=== PATIENT | female | born 1945 | race Caucasian/White ===

== ENCOUNTER 2017-09-23 10:01 | Emergency (ER) | payer OTHER, BC ==
[2017-09-23 10:08] VITALS: TEMP 98.5; BMI 26.4
--- NOTE | 2017-09-23 10:22 | PDOC ---
History of Present Illness - General Chief Complaint: Headache Stated Complaint: HEADACHE SENT BY PMD Time Seen by Provider: 09/23/17 10:16 Past History - Past Medical History Allergies/Adverse Reactions: Allergies Allergy/AdvReac Type Severity Reaction Status Date / Time cefuroxime axetil Allergy UNKNOWN Verified 09/23/17 10:08 [From Ceftin] ciprofloxacin HCl Allergy UNKNOWN Verified 09/23/17 10:08 [From Cipro] clindamycin HCl Allergy Verified 09/23/17 10:08 [From Cleocin] enoxaparin sodium Allergy Verified 09/23/17 10:08 [From Lovenox] erythromycin base Allergy UNKNOWN Verified 09/23/17 10:08 [Erythromycin Base] iodine [Iodine] Allergy Swelling Verified 09/23/17 10:08 lactose [Lactose] Allergy GAS AND Verified 09/23/17 10:08 PAIN latex Allergy Verified 09/23/17 10:08 Penicillins Allergy Hives Verified 09/23/17 10:08 promethazine HCl Allergy Verified 09/23/17 10:08 [From Phenergan] ranitidine HCl [From Zantac] Allergy Verified 09/23/17 10:08 Shellfish Allergy ITCHING Verified 09/23/17 10:08 TROUBLE SWALLOWING Sulfa (Sulfonamide Allergy UNKNOWN Verified 09/23/17 10:08 Antibiotics) NUTS Allergy UNKNOWN Uncoded 09/23/17 10:08 Home Medications: Ambulatory Orders Acetaminophen [Tylenol .Regular Strength -] 650 mg PO Q6H PRN #0 tablet Diltiazem [Cardizem -] 30 mg PO HS #0 tablet 01/08/14 Warfarin Na [Coumadin -] 5 mg PO ASDIR 10/18/14 Diphenhydramine HCl [Benadryl -] 25 mg PO HS 09/23/17 Anemia: No Asthma: Yes (ALLERGY PROBLEM) Cancer: No Cardiac Disorders: Yes (CAD, A-Fib - on Coumadin) CVA: No COPD: No CHF: No Dementia: No Diabetes: No GI Disorders: Yes (Post/op adhisions, Colostomy/Hemorrhoids, Rectal bleed) Disorders: No HTN: No Hypercholesterolemia: No Liver Disease: No Seizures: No Thyroid Disease: No - Surgical History Abdominal Surgery: Yes (Multiple hernia repair w/Colostomy) Appendectomy: Yes Cardiac Surgery: No Cholecystectomy: No Lung Surgery: No Neurologic Surgery: No (cyst removed on spine x4 last 1961) Orthopedic Surgery: No - Suicide/Smoking/Psychosocial Hx Smoking Status: No Smoking History: Never smoked Have you smoked in the past 12 months: No Number of Cigarettes Smoked Daily: 0 Information on smoking cessation initiated: No Hx Alcohol Use: No Drug/Substance Use Hx: No Substance Use Type: None Hx Substance Use Treatment: No *Physical Exam - Vital Signs Last Vital Signs Temp Pulse Resp BP Pulse Ox 98.5 F 74 18 143/87 100 09/23/17 10:06 09/23/17 10:06 09/23/17 10:06 09/23/17 10:06 09/23/17 10:06 ED Treatment Course - LABORATORY CBC & Chemistry Diagram: 09/23/17 10:59 09/23/17 10:59 *DC/Admit/Observation/Transfer Diagnosis at time of Disposition: Migraine Qualifiers: Migraine type: without aura Status migrainosus presence: without status migrainosus Intractability: not intractable Qualified Code(s): G43.009 - Migraine without aura, not intractable, without status migrainosus; G43.009 - Migraine without aura, not intractable, without status migrainosus; G43.009 - Migraine without aura, not intractable, without status migrainosus - Discharge Dispostion Disposition: HOME Condition at time of disposition: Good Admit: No - Referrals Referrals: Rasta Kebede MD [Primary Care Provider] - Salvador Aguilar DO [Staff Physician] - - Patient Instructions Printed Discharge Instructions: DI for Migraine Additional Instructions: You have a migraine. Your head CT was negative for bleed today. Continue to take the Tylenol every 6-8 hours for the next 48 hours to help prevent the headache from returning. Drink plenty of fluids and get plenty of rest. Follow up with Dr. Kebede within 2-3 days. You should also follow up with a neurologist. You were given the number for one. Your INR was 2.47 today. Resume your home dosing of Coumadin. Return to the ED if you have worsening headache, numbness and tingling, facial droop, slurred speech, or have any changes in your symptoms.
[2017-09-23] MEDS ORDERED: SODIUM CHLORIDE 500 ML IV STA (10:56)
[2017-09-23 11:10] LABS: BASOPHIL 0.8 % (0-2.0); EOSINOPHIL 1.3 % (0-4.5); MCH 28.6 pg (25.7-33.7); MCHC 32.7 g/dl (32.0-36.0); MEAN CELL VOLUME 87.7 fl (80-96); MEAN PLT VOLUME 8.7 fl (7.5-11.1); NEUTROPHILS 65.1 % (42.8-82.8); PLATELET COUNT 142 K/MM3 (134-434); WHITE BLOOD COUNT 4.6 K/mm3 (4.0-10.0)
[2017-09-23 11:25] LABS: INR 2.47 (0.82-1.09); PROTHROMBIN TIME (PATIENT) 27.9 SEC (9.98-11.88)
[2017-09-23 11:32] LABS: MAGNESIUM 2.1 mg/dL (1.8-2.4); PHOSPHOROUS 3.1 mg/dL (2.5-4.9)
[2017-09-23 11:36] LABS: ALBUMIN 3.8 g/dl (3.4-5.0); ALK PHOS 87 U/L (45-117); ANION GAP 10 (8-16); BILIRUBIN,TOTAL 0.3 mg/dL (0.2-1.0); CALCIUM 8.2 mg/dL (8.5-10.1); CO2 25 mmol/L (21-32); CREATININE 0.7 mg/dL (0.55-1.02); GLUCOSE,RANDOM 84 mg/dL (74-106); SGPT/ALT 32 U/L (12-78); TOT PROT 7.3 g/dl (6.4-8.2)
[2017-09-23 11:37] LABS: SGOT/AST 28 U/L (15-37)
[2017-09-23 11:51] LABS: URINE APPEARANCE CLEAR; URINE BILIRUBIN NEGATIVE (NEGATIVE); URINE BLOOD 1+ (NEGATIVE); URINE COLOR STRAW; URINE GLUCOSE (UA) NEGATIVE (NEGATIVE); URINE KETONE NEGATIVE (NEGATIVE); URINE NITRITE NEGATIVE (NEGATIVE); URINE PROTEIN NEGATIVE (NEGATIVE); URINE UROBILINOGEN NEGATIVE mg/dL (0.2-1.0)
[2017-09-23 12:01] LABS: URINE HYALINE CAST 3 /lpf; URINE MUCUS RARE; URINE WBC 1 /hpf (3-5)
[2017-09-23] MEDS ORDERED: METOCLOPRAMIDE HCL INJECTION 10 MG/2 ML VIAL IVPUSH ONE (12:08)
[2017-09-23] MEDS ORDERED: METOCLOPRAMIDE HCL INJECTION 10 MG/2 ML VIAL ONE (12:21)
[2017-09-23] MEDS ORDERED: ACETAMINOPHEN 325 MG TABLET (FP) PO ONE (13:22)
[2017-09-23] MEDS ORDERED: ACETAMINOPHEN 650 MG/20.3 ML ORAL SOLUTION (CUPS) ONE (13:25)
[2017-09-23 14:01] VITALS: BP 114/69; PULSE 76
[2017-09-23 19:51] LABS: URINE LEUK ESTERASE Negative (NEGATIVE)
== END 2017-09-23 14:00 | disposition home or self-care (01) ==
LOC: JER 10:01
PROC: 3E0337Z Introduction of Electrolytic and Water Balance Substance into Peripheral Vein, Percutaneous Approach (ICD-10-PCS; principal; 2017-09-23)
DX: G43.009 Migraine without aura, not intractable, without status migrainosus (principal); I48.91 Unspecified atrial fibrillation; Z79.01 Long term (current) use of anticoagulants
CPT/HCPCS: 36415; 70450-TC; 80053; 81003; 81015; 83735; 84100; 85025; 85610; 96360; 96361; 99282-25

== ENCOUNTER 2018-07-24 13:07 | Inpatient (IN) | payer OTHER, BC ==
--- NOTE | 2018-07-24 13:32 | PDOC ---
History of Present Illness - General Chief Complaint: SIRS, Suspected/Possible Stated Complaint: FEVER Time Seen by Provider: 07/24/18 13:32 - History of Present Illness Initial Comments: 73 year old with PMH of CAD, A. fib (Coumadin), colostomy, migraine, and vertigo presenting with nausea, vomiting, cough, and fevers since Saturday. States that she had chills and fever as high as 102 at home. Hesitated to take PO medication because of severe allergies to all regular medications due to PEG allergy. She also noticed some pain on the lateral aspect of her colostomy site without drainage, swelling, erythema, or other issues. Her younger relative had similar symptoms one week prior. Denies any chest pain, headache, SOB, or other symptoms. 07/24/18 13:47 Past History - Past Medical History Allergies/Adverse Reactions: Allergies Allergy/AdvReac Type Severity Reaction Status Date / Time cefuroxime axetil Allergy UNKNOWN Verified 07/24/18 13:13 [From Ceftin] ciprofloxacin HCl Allergy UNKNOWN Verified 07/24/18 13:13 [From Cipro] clindamycin HCl Allergy Verified 07/24/18 13:13 [From Cleocin] enoxaparin sodium Allergy Verified 07/24/18 13:13 [From Lovenox] erythromycin base Allergy UNKNOWN Verified 07/24/18 13:13 [Erythromycin Base] iodine [Iodine] Allergy Swelling Verified 07/24/18 13:13 lactose [Lactose] Allergy GAS AND Verified 07/24/18 13:13 PAIN latex Allergy Verified 07/24/18 13:13 Penicillins Allergy Hives Verified 07/24/18 13:13 promethazine HCl Allergy Verified 07/24/18 13:13 [From Phenergan] ranitidine HCl [From Zantac] Allergy Verified 07/24/18 13:13 Shellfish Allergy ITCHING Verified 07/24/18 13:13 TROUBLE SWALLOWING Sulfa (Sulfonamide Allergy UNKNOWN Verified 07/24/18 13:13 Antibiotics) NUTS Allergy UNKNOWN Uncoded 07/24/18 13:13 Home Medications: Ambulatory Orders Acetaminophen [Tylenol .Regular Strength -] 650 mg PO Q6H PRN #0 tablet Diltiazem [Cardizem -] 30 mg PO HS #0 tablet 01/08/14 Warfarin Na [Coumadin -] 5 mg PO ASDIR 10/18/14 Diphenhydramine HCl [Benadryl -] 25 mg PO HS 09/23/17 Anemia: No Asthma: Yes (ALLERGY PROBLEM) Cancer: No Cardiac Disorders: Yes (CAD, A-Fib - on Coumadin) CVA: No COPD: No CHF: No DVT: No Dementia: No Diabetes: No GI Disorders: Yes (Post/op adhisions, Colostomy/Hemorrhoids, Rectal bleed) Disorders: No HTN: No Hypercholesterolemia: No Liver Disease: No Seizures: No Thyroid Disease: No Other medical history: LLE DVT - Surgical History Abdominal Surgery: Yes (Multiple hernia repair w/Colostomy) Appendectomy: No Cardiac Surgery: No Cholecystectomy: No Lung Surgery: No Neurologic Surgery: No (cyst removed on spine x4 last 1961) Orthopedic Surgery: No - Suicide/Smoking/Psychosocial Hx Smoking Status: No Smoking History: Never smoked Have you smoked in the past 12 months: No Number of Cigarettes Smoked Daily: 0 Information on smoking cessation initiated: No Hx Alcohol Use: No Drug/Substance Use Hx: No Substance Use Type: None Hx Substance Use Treatment: No Review of Systems - Review of Systems Constitutional: Yes: Chills, Fever, Loss of Appetite. No: Diaphoresis HEENTM: No: Blurred Vision, Tearing Respiratory: Yes: Cough. No: Shortness of Breath, Wheezing, Productive cough Cardiac (ROS): No: Chest Pain, Edema, Irregular Heart Rate ABD/GI: Yes: Nausea, Vomiting. No: Diarrhea, Indigestion : No: Dysuria, Discharge, Frequency Musculoskeletal: No: Back Pain, Gout Integumentary: No: Lesions, Lumps Neurological: No: Numbness, Tremors Psychiatric: No: Anxiety, Depression Hematologic/Lymphatic: No: Anemia, Blood Clots, Easy Bleeding *Physical Exam - Vital Signs Last Vital Signs Temp Pulse Resp BP Pulse Ox 99.4 F 91 H 18 118/86 100 07/24/18 13:14 07/24/18 13:14 07/24/18 13:14 07/24/18 13:14 07/24/18 13:14 - Physical Exam General Appearance: Yes: Nourished, Appropriately Dressed. No: Apparent Distress HEENT: positive: EOMI, NICKI, Normal ENT Inspection, Normal Voice Neck: positive: Trachea midline, Normal Thyroid, Supple. negative: Tender, Rigid Respiratory/Chest: positive: Lungs Clear, Normal Breath Sounds. negative: Chest Tender, Respiratory Distress, Accessory Muscle Use Cardiovascular: positive: Regular Rhythm, Regular Rate Gastrointestinal/Abdominal: positive: Normal Bowel Sounds, Tender (Tender on the lateral aspect of her left colostomy site), Flat, Soft Lymphatic: negative: Adenopathy, Tenderness Musculoskeletal: positive: Normal Inspection. negative: CVA Tenderness Extremity: positive: Normal Capillary Refill, Normal Inspection, Normal Range of Motion. negative: Tender Integumentary: positive: Normal Color, Dry, Warm Neurologic: positive: hardwood sawyer II-XII NML intact, Fully Oriented, Alert, Normal Mood/ Affect, Normal Response, Motor Strength 04/05 ED Treatment Course - LABORATORY CBC & Chemistry Diagram: 07/24/18 14:46 07/24/18 14:46 Medical Decision Making - Medical Decision Making 73 year old female with cough, fevers, chills, and lateral left abdominal pain after a bout of coughing. Her CXR corroborates right middle lobe PNA. However, she states she is very allergic to oral medications and the majority of oral abx. Severely allergic to floroquinolones. She was premedicated with 25 IV Benadryl and ceftriaxone was started. Run for 30 minutes without issue by the end of my shift. Patient signed out to Dr. Garcia and oncoming financial services intern Bryce Askew pending azithromycin. Epi given to Jamilah in case there are any issues. 07/24/18 14:30 *DC/Admit/Observation/Transfer Diagnosis at time of Disposition: CAP (community acquired pneumonia) Qualifiers: Laterality: right Lung location: middle lobe of lung Qualified Code(s): J18.1 - Lobar pneumonia, unspecified organism - Discharge Dispostion Condition at time of disposition: Stable Decision to Admit order: Yes - Referrals Referrals: Rasta Kebede MD [Primary Care Provider] - - Patient Instructions - Post Discharge Activity
--- NOTE | 2018-07-24 14:04 | PDOC ---
Attending Attestation - Resident Resident Name: Brittanie Brown - ED Attending Attestation I have performed the following: I have examined & evaluated the patient, The case was reviewed & discussed with the resident, I agree w/resident's findings & plan, Exceptions are as noted - HPI HPI: 07/24/18 14:00 The patient is a 73 year old female with PMHx of CAD, A-fib, DVT (takes Coumadin ), asthma, rectal bleeds, meniere's disease, SBO, kidney stones, hemorrhoids, s/ p Ileostomy, s/p appendectomy, who presents with 7 days of general malaise. Patient states that since last Saturday she has been experiencing intermittent fevers (101), nausea, chills, body aches, dizziness, and generalized weakness. Yesterday she states that she developed a non-productive cough. She states that she also began experiencing some pain around the site of her ileostomy when she heaves. She also reports that she feels dehydrated and has not been taking in as much fluids. Patient reports that her daughter has been recently diagnosed with viral pneumonia and had similar symptoms (fever, nausea, body aches etc.). PCP: Dr. Kebede Allergies: various allergies to oral meds - please see nursing notes - Physicial Exam PE: 07/24/18 14:53 GENERAL: The patient is awake, alert, and fully oriented, Nontoxic - in no acute distress. HEAD: Normocephalic, atraumatic. EYES: Sunken appearing eyes. Extraocular movements intact, sclera anicteric, conjunctiva clear. ENT: Normal voice, Dry mucous membranes. NECK: Normal range of motion, supple LUNGS: Breath sounds equal, clear to auscultation bilaterally. No wheezes, no rhonchi, no rales. HEART: Regular rate and rhythm, without murmur, rub or gallop. ABDOMEN: Soft, nontender beside very midl tenderness on lateral aspect of ileostomy site, ileostomy site clean, nonerythemadous, no fluctuance/fullness EXTREMITIES: Normal range of motion, no edema. No cyanosis. No erythema, or tenderness. NEUROLOGICAL: No facial assymetry, Normal speech, PSYCH: Normal mood, normal affect. SKIN: Warm, Dry, normal turgor, - Medical Decision Making 07/24/18 14:21 suspect viral syndrome no abd tendneress to suggest acute intrabdominal infection will obtain blood work, ua, cxr will treat symptomatically with tylenol, fluids, zofran will reassess 07/24/18 16:21 xray suspicious for side dpna due to the pts extensive allergic profile, will require admission for iv abx will admit for further management
[2018-07-24] MEDS ORDERED: ACETAMINOPHEN 1000 MG/100 ML VIAL (NON FORMULARY) IVPB ONE (14:24)
[2018-07-24] MEDS ORDERED: SODIUM CHLORIDE 1,000 ML IV STA (14:29)
[2018-07-24] MEDS ORDERED: ACETAMINOPHEN INJECTION 100 ML IVPB ONE (14:59)
[2018-07-24 15:07] LABS: URINE APPEARANCE SLCLOUDY; URINE BILIRUBIN NEGATIVE (<2.0 mg/dL); URINE COLOR DKYELLOW; URINE GLUCOSE (UA) NEGATIVE (NEGATIVE); URINE KETONE NEGATIVE (NEGATIVE); URINE NITRITE POSITIVE (NEGATIVE); URINE UROBILINOGEN NEGATIVE mg/dL (0.2-1.0)
[2018-07-24 15:14] LABS: URINE LEUK ESTERASE 1+ (NEGATIVE); URINE PROTEIN 1+ (NEGATIVE)
[2018-07-24 15:16] LABS: BASO % 0.4 % (0-2.0); HEMATOCRIT 39.4 % (32.4-45.2); HEMOGLOBIN 13.2 GM/dL (10.7-15.3); LYMPH % 8.8 % (8-40); MCH 29.3 pg (25.7-33.7); MCHC 33.4 g/dl (32.0-36.0); MEAN CELL VOLUME 87.6 fl (80-96); MONO % 7.6 % (3.8-10.2); NEUT % 83.2 % (42.8-82.8); PLATELET COUNT 202 K/MM3 (134-434); RDW 13.2 % (11.6-15.6); WHITE BLOOD COUNT 4.9 K/mm3 (4.0-10.0)
[2018-07-24 15:20] LABS: URINE BACTERIA MANY /hpf (NONE SEEN)
[2018-07-24 15:34] LABS: ALBUMIN 3.6 g/dl (3.4-5.0); AMYLASE 95 U/L (25-115); ANION GAP 12 MMOL/L (8-16); BLOOD UREA NITROGEN 13 mg/dL (7-18); CALCIUM 9.2 mg/dL (8.5-10.1); CHLORIDE 97 mmol/L (98-107); CO2 28 mmol/L (21-32); GLUCOSE,RANDOM 94 mg/dL (74-106); POTASSIUM 4.2 mmol/L (3.5-5.1); SODIUM 137 mmol/L (136-145)
[2018-07-24 15:37] LABS: INR 2.26 (0.83-1.09); PROTHROMBIN TIME (PATIENT) 25.5 SEC (9.7-13.0)
[2018-07-24 15:40] LABS: ALK PHOS 248 U/L (45-117); BILIRUBIN,TOTAL 0.5 mg/dL (0.2-1.0); CREATININE 0.9 mg/dL (0.55-1.02); SGOT/AST 73 U/L (15-37); SGPT/ALT 68 U/L (12-78); TOT PROT 8.1 g/dl (6.4-8.2)
[2018-07-24 15:42] LABS: LIPASE 442 U/L (73-393)
[2018-07-24] MEDS ORDERED: CEFTRIAXONE 1,000 MG in DEXTROSE 5%-WATER - 50 ML IVPB ONE (17:38)
[2018-07-24] MEDS ORDERED: AZITHROMYCIN IVPB 500 MG in DEXTROSE 5%-WATER - 250 ML IVPB ONE (17:38)
[2018-07-24] MEDS ORDERED: CEFTRIAXONE 1 GM/50 ML BAG ONE (18:40)
[2018-07-24] MEDS ORDERED: AZITHROMYCIN IVPB 250 ML IVPB ONE ×2 (18:40→18:41)
[2018-07-24] MEDS ORDERED: EPINEPHrine/PF 1 MG/1 ML (1:1,000) AMPULE ONE (18:58)
--- NOTE | 2018-07-24 20:01 | HP ---
Admitting History and Physical - Primary Care Physician PCP: Rasta Kebede - Admission Chief Complaint: Fever, Nausea, Vomiting History of Present Illness: 73 y/o woman with a past medical history of CAD, Afib (on Coumadin), Migraine, Vertigo, s/p colostomy. Who preens to the ED with fever, nausea and vomiting. Patient states that since last Saturday she has been experiencing intermittent fevers (101), nausea, chills, body aches, dizziness, and generalized weakness. Yesterday she states that she developed a non-productive cough. She states that she also began experiencing some pain around the site of her ileostomy when she heaves. She also reports that she feels dehydrated and has not been taking in as much fluids. Patient reports that her daughter has been recently diagnosed with viral pneumonia and had similar symptoms (fever, nausea, body aches etc.). 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 No: CAD Renal/: Yes: Renal Calculi ...LMP: 01/02/88 - Past Surgical History Past Surgical History: Yes: Colostomy - Smoking History Smoking history: Never smoked Have you smoked in the past 12 months: No Aproximately how many cigarettes per day: 0 - Alcohol/Substance Use Hx Alcohol Use: No History of Substance Use: reports: None - Social History Usual Living Arrangement: Yes: With Child ADL: Independent History of Recent Travel: No Home Medications - Allergies Allergies/Adverse Reactions: Allergies Allergy/AdvReac Type Severity Reaction Status Date / Time cefuroxime axetil Allergy UNKNOWN Verified 07/24/18 13:13 [From Ceftin] chocolate flavor Allergy Verified 07/25/18 07:26 ciprofloxacin HCl Allergy UNKNOWN Verified 07/24/18 13:13 [From Cipro] clindamycin HCl Allergy Verified 07/24/18 13:13 [From Cleocin] egg Allergy Verified 07/25/18 07:25 enoxaparin sodium Allergy Verified 07/24/18 13:13 [From Lovenox] erythromycin base Allergy UNKNOWN Verified 07/24/18 13:13 [Erythromycin Base] iodine [Iodine] Allergy Swelling Verified 07/24/18 13:13 lactose [Lactose] Allergy GAS AND Verified 07/24/18 13:13 PAIN latex Allergy Verified 07/24/18 13:13 orange Allergy Verified 07/25/18 07:25 Penicillins Allergy Hives Verified 07/24/18 13:13 promethazine HCl Allergy Verified 07/24/18 13:13 [From Phenergan] ranitidine HCl [From Zantac] Allergy Verified 07/24/18 13:13 Shellfish Allergy ITCHING Verified 07/24/18 13:13 TROUBLE SWALLOWING Sulfa (Sulfonamide Allergy UNKNOWN Verified 07/24/18 13:13 Antibiotics) NUTS Allergy UNKNOWN Uncoded 07/24/18 13:13 - Home Medications Home Medications: Ambulatory Orders Acetaminophen [Tylenol .Regular Strength -] 650 mg PO Q6H PRN #0 tablet Diltiazem [Cardizem -] 30 mg PO HS #0 tablet 01/08/14 Warfarin Na [Coumadin -] 5 mg PO ASDIR 10/18/14 Diphenhydramine HCl [Benadryl -] 25 mg PO HS 09/23/17 Review of Systems - Review of Systems Constitutional: reports: Chills, Fever Eyes: reports: No Symptoms HENT: reports: No Symptoms Neck: reports: No Symptoms Cardiovascular: reports: No Symptoms Respiratory: reports: Cough Gastrointestinal: reports: Nausea, Vomiting Genitourinary: reports: No Symptoms Breasts: reports: No Symptoms Reported Musculoskeletal: reports: No Symptoms Integumentary: reports: No Symptoms Neurological: reports: Dizziness Endocrine: reports: No Symptoms Hematology/Lymphatic: reports: No Symptoms Psychiatric: reports: No Symptoms Physical Examination Vital Signs: Vital Signs Temperature 98.7 F 07/24/18 19:05 Pulse Rate 78 07/24/18 19:05 Respiratory Rate 16 07/24/18 19:05 Blood Pressure 128/78 07/24/18 19:05 O2 Sat by Pulse Oximetry (%) 98 07/24/18 19:05 Constitutional: Yes: No Distress, Calm, Thin Eyes: Yes: WNL, Conjunctiva Clear, EOM Intact, PERRL HENT: Yes: WNL, Atraumatic, Normocephalic Neck: Yes: WNL, Supple, Trachea Midline Cardiovascular: Yes: Pulse Irregular, Murmur, S1, S2 Respiratory: Yes: Diminished, Rhonchi, SOB Gastrointestinal: Yes: Normal Bowel Sounds, Soft, Other (ileostomy) Breast(s): Yes: WNL Musculoskeletal: Yes: WNL Extremities: Yes: WNL Edema: No Peripheral Pulses WNL: Yes Neurological: Yes: WNL, Alert, Oriented, Cran Nerves II-XII Intact ...Motor Strength: WNL Psychiatric: Yes: WNL, Alert, Oriented Labs: CBC, BMP 07/24/18 14:46 07/24/18 14:46 Laboratory Results - last 24 hr 07/24/18 07/24/18 07/24/18 14:26 14:46 14:46 WBC 4.9 RBC 4.50 Hgb 13.2 Hct 39.4 MCV 87.6 MCH 29.3 MCHC 33.4 RDW 13.2 Plt Count 202 D MPV 9.0 Absolute Neuts (auto) 4.1 Neutrophils % 83.2 H D Lymphocytes % 8.8 D Monocytes % 7.6 Eosinophils % 0.0 D Basophils % 0.4 Nucleated RBC % 0 PT with INR INR Sodium 137 Potassium 4.2 Chloride 97 L Carbon Dioxide 28 Anion Gap 12 BUN 13 Creatinine 0.9 Creat Clearance w eGFR > 60 Random Glucose 94 Lactic Acid Calcium 9.2 Total Bilirubin 0.5 AST 73 H ALT 68 Alkaline Phosphatase 248 H Total Protein 8.1 Albumin 3.6 Total Amylase 95 Lipase 442 H Urine Color Dkyellow Urine Appearance Slcloudy Urine pH 6.0 Ur Specific [place] 1.017 Urine Protein 1+ H Urine Glucose (UA) Negative Urine Ketones Negative Urine Blood 2+ H Urine Nitrite Positive Urine Bilirubin Negative Urine Urobilinogen Negative Ur Leukocyte Esterase 1+ H Urine WBC (Auto) None Urine RBC (Auto) None Urine Bacteria Many 07/24/18 07/24/18 14:46 15:14 WBC RBC Hgb Hct MCV MCH MCHC RDW Plt Count MPV Absolute Neuts (auto) Neutrophils % Lymphocytes % Monocytes % Eosinophils % Basophils % Nucleated RBC % PT with INR 25.50 H INR 2.26 H Sodium Potassium Chloride Carbon Dioxide Anion Gap BUN Creatinine Creat Clearance w eGFR Random Glucose Lactic Acid 1.2 Calcium Total Bilirubin AST ALT Alkaline Phosphatase Total Protein Albumin Total Amylase Lipase Urine Color Urine Appearance Urine pH Ur Specific [place] Urine Protein Urine Glucose (UA) Urine Ketones Urine Blood Urine Nitrite Urine Bilirubin Urine Urobilinogen Ur Leukocyte Esterase Urine WBC (Auto) Urine RBC (Auto) Urine Bacteria Imaging - Results Chest X-ray: Report Reviewed (RML Infiltrate), Image Reviewed EKG: Image Reviewed Problem List - Problems (1) CAP (community acquired pneumonia) Code(s): J18.9 - PNEUMONIA, UNSPECIFIED ORGANISM Qualifiers: Laterality: right Lung location: middle lobe of lung Qualified Code(s): J18.1 - Lobar pneumonia, unspecified organism (2) UTI (urinary tract infection) Code(s): N39.0 - URINARY TRACT INFECTION, SITE NOT SPECIFIED (3) Nausea and vomiting Code(s): R11.2 - NAUSEA WITH VOMITING, UNSPECIFIED (4) A-fib Code(s): I48.91 - UNSPECIFIED ATRIAL FIBRILLATION Assessment/Plan 73 y/o woman placed in Observation for Pneumonia, UTI for further evaluation of their emergent condition. Plan 1. ID: Pneumonia will treat for CAP patient has multiple drug allergies given levofloxacin, Ceftriaxone, Azithromycin premedicated with solumederol, benadryl in light of complex allergies will order Linezolid IV in am, then defer to ID appreciate ID consult blood cultures pending, urnie culture pending will order sputum and urine legionella repeat CBC, BMP in am monitor vitals O2 Tylenol prn 2. UTI UA +Nitrates, +1 leukocyte esterase, +1 protein urine culture pending multiple drug allergies treated in ED with Levofloxacin will defer to ID 3. Afib stable continue Coumadin maintain INR between 2-3, will hold Coumadin if INR > 3 [id number] 3 EKG- NSR with no ST or TWI , no change compared to prior study FEN IVF, till PO tolerated Replete lytes prn NPO DVT ppx OOB SCDs Continue Coumadin Code Status: Dispo: Observation Visit type - Emergency Visit Emergency Visit: Yes ED Registration Date: 07/24/18 Care time: The patient presented to the Emergency Department on the above date and was hospitalized for further evaluation of their emergent condition. - New Patient This patient is new to me today: Yes Date on this admission: 07/24/18 - Critical Care Critical Care patient: No Hospitalist Screening - Colonoscopy Questionnaire Colonoscopy Questionnaire: Colonoscopy Questionnaire - Patient: 50 - 75 years old and never had a screening colonoscopy: No History of colon or rectal polyps, or CA: No History of IBD, Crohn's disease or UC: Yes History of abdominal radiation therapy as a child: No - Relative: 1 with colon or rectal CA, or polyps at age 60 or younger: No Colon or rectal CA diagnosed at age 45 or younger: No Multiple relatives with colon or rectal CA: No - Outcome: Screening Result: Positive Screen
[2018-07-25] MEDS ORDERED: dilTIAZem HCL 30 MG TABLET (FP) PO ONE (01:03)
[2018-07-25] MEDS ORDERED: diphenhydrAMINE HCL 25 MG CAPSULE (FP) PO ONE (01:03)
[2018-07-25] MEDS: DEXTROSE 5%-0.45% SALINE 1,000 ML IV SCH (01:31)
[2018-07-25 07:21] LABS: BASO % 0.7 % (0-2.0); EOS % 0.5 % (0-4.5); HEMATOCRIT 33.1 % (32.4-45.2); HEMOGLOBIN 11.1 GM/dL (10.7-15.3); LYMPH % 13.8 % (8-40); MCH 29.2 pg (25.7-33.7); MCHC 33.5 g/dl (32.0-36.0); MEAN PLT VOLUME 8.9 fl (7.5-11.1); MONO % 11.7 % (3.8-10.2); NEUT % 73.3 % (42.8-82.8); PLATELET COUNT 156 K/MM3 (134-434); RBC 3.81 M/mm3 (3.60-5.2); RDW 13.6 % (11.6-15.6); WHITE BLOOD COUNT 4.1 K/mm3 (4.0-10.0)
[2018-07-25 07:42] LABS: ANION GAP 7 MMOL/L (8-16); BLOOD UREA NITROGEN 10 mg/dL (7-18); CALCIUM 8.1 mg/dL (8.5-10.1); CHLORIDE 103 mmol/L (98-107); CO2 28 mmol/L (21-32); CREATININE 0.9 mg/dL (0.55-1.02); GLUCOSE,RANDOM 95 mg/dL (74-106); POTASSIUM 3.9 mmol/L (3.5-5.1); SODIUM 138 mmol/L (136-145)
--- NOTE | 2018-07-25 09:37 | PN ---
Progress Note (short form) - Note Progress Note: Dr. Carpio to document today. Pulmonary infiltrate but WBC 4,000. Nausea all week. Also elevated alk phosphatase, AST and LIpase with RUQ pain on exam. Patient well known to Dr. Mccarthy; To consult him. No hx of Cholecystectomy.
--- NOTE | 2018-07-25 12:02 | EKG ---
Test Reason : Blood Pressure : / mmHG Vent. Rate : 080 BPM Atrial Rate : 080 BPM P-R Int : 150 ms QRS Dur : 086 ms QT Int : 360 ms P-R-T Axes : 069 064 059 degrees QTc Int : 415 ms NORMAL SINUS RHYTHM NORMAL ECG WHEN COMPARED WITH ECG OF 18-OCT-2014 20:47, NO SIGNIFICANT CHANGE WAS FOUND Confirmed by ROCEHLLE SEARS MD ([id number]) on 07/25/2018 12:02:10 PM Referred By: Confirmed By:ROCHELLE SEARS MD
--- NOTE | 2018-07-25 14:37 | CON.ID ---
Consult Consult Specialty:: infectious diseases Reason for Consultation:: fever,weakness - History of Present Illness Chief Complaint: fever weakness History of Present Illness: 73 y/o woman with a past medical history of CAD, Afib (on Coumadin), Migraine, Vertigo, s/p colostomy admitted with fever, nausea and vomiting. Patient states that since last Saturday she has been experiencing intermittent fevers (101), nausea, chills, body aches, dizziness, and generalized weakness. Yesterday she states that she developed a non-productive cough. She states that she also began experiencing some pain around the site of her ileostomy when she heaves. She also reports that she feels dehydrated and has not been taking in as much fluids. 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 No: CAD Renal/: Yes: Renal Calculi ...LMP: 01/02/88 - Past Surgical History Past Surgical History: Yes: Colostomy - Alcohol/Substance Use Hx Alcohol Use: No History of Substance Use: reports: None - Smoking History Smoking history: Never smoked Have you smoked in the past 12 months: No Aproximately how many cigarettes per day: 0 - Social History ADL: Independent History of Recent Travel: No Home Medications - Allergies Allergies/Adverse Reactions: Allergies Allergy/AdvReac Type Severity Reaction Status Date / Time cefuroxime axetil Allergy UNKNOWN Verified 07/24/18 13:13 [From Ceftin] chocolate flavor Allergy Verified 07/25/18 07:26 ciprofloxacin HCl Allergy UNKNOWN Verified 07/24/18 13:13 [From Cipro] clindamycin HCl Allergy Verified 07/24/18 13:13 [From Cleocin] egg Allergy Verified 07/25/18 07:25 enoxaparin sodium Allergy Verified 07/24/18 13:13 [From Lovenox] erythromycin base Allergy UNKNOWN Verified 07/24/18 13:13 [Erythromycin Base] iodine [Iodine] Allergy Swelling Verified 07/24/18 13:13 lactose [Lactose] Allergy GAS AND Verified 07/24/18 13:13 PAIN latex Allergy Verified 07/24/18 13:13 meropenem Allergy Hives Verified 07/25/18 17:45 orange Allergy Verified 07/25/18 07:25 Penicillins Allergy Hives Verified 07/24/18 13:13 promethazine HCl Allergy Verified 07/24/18 13:13 [From Phenergan] ranitidine HCl [From Zantac] Allergy Verified 07/24/18 13:13 Shellfish Allergy ITCHING Verified 07/24/18 13:13 TROUBLE SWALLOWING Sulfa (Sulfonamide Allergy UNKNOWN Verified 07/24/18 13:13 Antibiotics) NUTS Allergy UNKNOWN Uncoded 07/24/18 13:13 - Home Medications Home Medications: Ambulatory Orders Acetaminophen [Tylenol .Regular Strength -] 650 mg PO Q6H PRN #0 tablet Diltiazem [Cardizem -] 30 mg PO HS #0 tablet 01/08/14 Warfarin Na [Coumadin -] 5 mg PO ASDIR 10/18/14 Diphenhydramine HCl [Benadryl -] 25 mg PO HS 09/23/17 Review of Systems - Review of Systems Constitutional: reports: Chills, Fever, Weakness Eyes: reports: No Symptoms HENT: reports: No Symptoms Neck: reports: No Symptoms Cardiovascular: reports: No Symptoms Respiratory: reports: No Symptoms Gastrointestinal: reports: No Symptoms Genitourinary: reports: No Symptoms Musculoskeletal: reports: No Symptoms Integumentary: reports: No Symptoms Neurological: reports: No Symptoms Endocrine: reports: No Symptoms Hematology/Lymphatic: reports: No Symptoms Psychiatric: reports: No Symptoms Physical Exam Vital Signs: Vital Signs Temperature 98.5 F 07/25/18 14:15 Pulse Rate 83 07/25/18 14:15 Respiratory Rate 16 07/25/18 14:15 Blood Pressure 104/53 07/25/18 14:15 O2 Sat by Pulse Oximetry (%) 98 07/25/18 10:00 Constitutional: Yes: Calm, Mild Distress, Thin Eyes: Yes: Conjunctiva Clear HENT: Yes: Atraumatic, Normocephalic Neck: Yes: Supple, Trachea Midline Cardiovascular: Yes: Regular Rate and Rhythm Respiratory: Yes: Regular, CTA Bilaterally Gastrointestinal: Yes: Normal Bowel Sounds, Soft, Other (multiple inscisions clean and dry stoma present working) Musculoskeletal: Yes: WNL Extremities: Yes: WNL Integumentary: Yes: WNL Neurological: Yes: Alert, Oriented Psychiatric: Yes: Alert, Oriented Labs: CBC, BMP 07/25/18 06:15 07/25/18 06:15 Imaging - Results Chest X-ray: Report Reviewed, Image Reviewed Assessment/Plan this patient coming in with multiple medical issues including findings in the lungs and uti patient has received ceftriaxone in the emergency room with it seems benadryl at the moment patient is ok after receiving the abx.also her lipase is high so if there is any intrabd pathology going on though she is completely asymptomatic uptill now her cx are negative so this could be viral the way she has presented Problem List - Problems (1) CAP (community acquired pneumonia) Code(s): J18.9 - PNEUMONIA, UNSPECIFIED ORGANISM Qualifiers: Laterality: right Lung location: middle lobe of lung Qualified Code(s): J18.1 - Lobar pneumonia, unspecified organism (2) UTI (urinary tract infection) Code(s): N39.0 - URINARY TRACT INFECTION, SITE NOT SPECIFIED Qualifiers: Urinary tract infection type: acute cystitis Hematuria presence: with hematuria Qualified Code(s): N30.01 - Acute cystitis with hematuria (3) A-fib Code(s): I48.91 - UNSPECIFIED ATRIAL FIBRILLATION Qualifiers: Atrial fibrillation type: chronic Qualified Code(s): I48.2 - Chronic atrial fibrillation (4) Abnormal liver enzymes Code(s): R74.8 - ABNORMAL LEVELS OF OTHER SERUM ENZYMES (5) History of DVT (deep vein thrombosis) Code(s): Z86.718 - PERSONAL HISTORY OF OTHER VENOUS THROMBOSIS AND EMBOLISM (6) Protein S deficiency Code(s): D68.59 - OTHER PRIMARY THROMBOPHILIA (7) Pancreatitis Code(s): K85.90 - ACUTE PANCREATITIS WITHOUT NECROSIS OR INFECTION, UNSP Qualifiers: Chronicity: acute Pancreatitis type: biliary Acute pancreatitis complication: no infection or necrosis Qualified Code(s): K85.10 - Biliary acute pancreatitis without necrosis or infection plan will start meropenam iv fluids await for identification of the organism gi to see the patient rest as per the team
[2018-07-25] MEDS ORDERED: MEROPENEM 1 GM in DEXTROSE 5%-WATER - 100 ML IVPB SCH (16:00)
--- NOTE | 2018-07-25 16:28 | PN ---
Progress Note, Physician Chief Complaint: Pt sitting in chair in no acute distress. Reports cough. denies any chest pain, sob, n/v/d, abdominal pain - Current Medication List Current Medications: Active Medications Dextrose/Sodium Chloride (D5-1/2ns -) 1,000 mls @ 42 mls/hr IV ASDIR YANCY Last Admin: 07/25/18 01:31 Dose: 42 mls/hr Meropenem 1 gm/ Dextrose 100 mls @ 200 mls/hr IVPB Q8H-IV YANCY - Objective Vital Signs: Vital Signs Temperature 98.5 F 07/25/18 14:15 Pulse Rate 83 07/25/18 14:15 Respiratory Rate 16 07/25/18 14:15 Blood Pressure 104/53 07/25/18 14:15 O2 Sat by Pulse Oximetry (%) 98 07/25/18 10:00 Constitutional: Yes: Well Nourished, No Distress, Calm Cardiovascular: Yes: Regular Rate and Rhythm. No: Gallop, Murmur Respiratory: Yes: WNL, Regular, CTA Bilaterally. No: Accessory Muscle Use, SOB , Stridor, Tachypnea Gastrointestinal: Yes: Normal Bowel Sounds, Soft, Other (ileostomy present). No : Abdomen, Obese, Distention, Tenderness, Vomiting Genitourinary: Yes: WNL Musculoskeletal: Yes: WNL Extremities: Yes: WNL Edema: No Neurological: Yes: WNL, Alert, Oriented Psychiatric: Yes: WNL, Alert, Oriented Labs: CBC, BMP 07/25/18 06:15 07/25/18 06:15 INR, PTT INR 2.26 (0.83-1.09) H 07/24/18 15:14 Problem List - Problems (1) CAP (community acquired pneumonia) Assessment/Plan: chest xray- RML infiltrate presents with fevers/chills, nausea, fatigue x 1 week wbc wnl, [id number] here, non prod cough urine legionella pending ceftriaxone day 1 ID following Code(s): J18.9 - PNEUMONIA, UNSPECIFIED ORGANISM Qualifiers: Laterality: right Lung location: middle lobe of lung Qualified Code(s): J18.1 - Lobar pneumonia, unspecified organism (2) Chills with fever Assessment/Plan: secondary to PNA as above Code(s): R50.9 - FEVER, UNSPECIFIED (3) UTI (urinary tract infection) Assessment/Plan: possible UTI leuk es+, nitrite +, +blood pt asymptomatic urine culture pending antibx per ID Code(s): N39.0 - URINARY TRACT INFECTION, SITE NOT SPECIFIED Qualifiers: Urinary tract infection type: acute cystitis Hematuria presence: with hematuria Qualified Code(s): N30.01 - Acute cystitis with hematuria (4) Abnormal liver enzymes Assessment/Plan: elevated alk phos w/ mild elevation in lipase suspect canalicular obstructive pattern Abd US ordered GI following Code(s): R74.8 - ABNORMAL LEVELS OF OTHER SERUM ENZYMES (5) Nausea Assessment/Plan: pt reports dry heaving x 1 week no vomiting possibly secondary to PNA/ biliary etiology monitor Code(s): R11.0 - NAUSEA (6) Pancreatitis Assessment/Plan: suspect biliary induced ivf monitor Code(s): K85.90 - ACUTE PANCREATITIS WITHOUT NECROSIS OR INFECTION, UNSP Qualifiers: Chronicity: acute (7) A-fib Assessment/Plan: controlled INR therapeutic continue coumadin, cardizem home dose: coumadin 5mgx6 days, 7.5mg x 1 Code(s): I48.91 - UNSPECIFIED ATRIAL FIBRILLATION Qualifiers: Atrial fibrillation type: chronic Qualified Code(s): I48.2 - Chronic atrial fibrillation (8) GERD (gastroesophageal reflux disease) Assessment/Plan: stable monitor Code(s): K21.9 - GASTRO-ESOPHAGEAL REFLUX DISEASE WITHOUT ESOPHAGITIS Qualifiers: Esophagitis presence: without esophagitis Qualified Code(s): K21.9 - Gastro -esophageal reflux disease without esophagitis (9) History of DVT (deep vein thrombosis) Assessment/Plan: anticoagulated on Coumadin Code(s): Z86.718 - PERSONAL HISTORY OF OTHER VENOUS THROMBOSIS AND EMBOLISM (10) Protein S deficiency Assessment/Plan: Anticoagulated Code(s): D68.59 - OTHER PRIMARY THROMBOPHILIA (11) Family history of colon cancer Code(s): Z80.0 - FAMILY HISTORY OF MALIGNANT NEOPLASM OF DIGESTIVE ORGANS (12) Ileostomy present Code(s): Z93.2 - ILEOSTOMY STATUS (13) Colon adenoma Code(s): D12.6 - BENIGN NEOPLASM OF COLON, UNSPECIFIED (14) Diverticulosis of both small and large intestine without perforation or abscess without bleeding Code(s): K57.50 - DVRTCLOS OF BOTH SM AND LG INT W/O PERF OR ABSCS W/O BLEED
--- NOTE | 2018-07-25 16:28 | CON.GI ---
Consult Consult Specialty:: Gastroenterology Referred by:: Dr Kebede Reason for Consultation:: Fevers to 101 with chills - History of Present Illness Chief Complaint: Fever and chills History of Present Illness: 73F developed chill and fever to 101 for the past week. Her daughter had pneumonia last week. She denies abdominal pain but did have some dry heaving 2 days ago. Her last ultrasound in 2012 revealed no gallstones. Her urinalysis suggests a UTI. She has a very complex GI history that includes multiple food intolerances and FH of colon cancer ( 2 daughters). She has a personal h/o a cecal adenoma removed in 2008. She last had a complete colonoscopy in 2010. She has a tight sigmoid diverticular stricture that permits only a pediatric sized gastroscope to pass but this has allowed me to only reach the hepatic flexure ( 10/15). 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 I referred her to [facility] where she saw Dr. Isaura Salvador at [place] who could not complete her colonoscopy. I then referred her to Dr. Sabillon who attempted it on 05/28/18 but could not get past the sigmoid due to a poor prep. He did do an EGD on that date ( see attached ) which was unremarkable. She has an end-ileostomy in the left abdomen. This was created by Dr. Ashutosh Chan at [facility] as a result of an attempted hemorrhoidectomy at which he decided to open the abdomen to relieve adhesions causing a sigmoid obstruction) She initially had a loop ileostomy that had to be closed and coverted to an end- ileostomy . Plans for a total colectomy were never brought to fruition. 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 Protein S deficiency. Meniere's disease. Anxiety disorder - Past Surgical History Past Surgical History: Yes: Hysterectomy (TAHBSO), Tonsillectomy Additional Surgical History: End-ileostomy following a loop ileostomy to relieve obstruction due to a sigmoid diverticular stricture that could not be resected ( Dr Ashutosh Chan [facility]). 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 Place of : [facility] History of Recent Travel: No Home Medications - Allergies Allergies/Adverse Reactions: Allergies Allergy/AdvReac Type Severity Reaction Status Date / Time cefuroxime axetil Allergy UNKNOWN Verified 07/24/18 13:13 [From Ceftin] chocolate flavor Allergy Verified 07/25/18 07:26 ciprofloxacin HCl Allergy UNKNOWN Verified 07/24/18 13:13 [From Cipro] clindamycin HCl Allergy Verified 07/24/18 13:13 [From Cleocin] egg Allergy Verified 07/25/18 07:25 enoxaparin sodium Allergy Verified 07/24/18 13:13 [From Lovenox] erythromycin base Allergy UNKNOWN Verified 07/24/18 13:13 [Erythromycin Base] iodine [Iodine] Allergy Swelling Verified 07/24/18 13:13 lactose [Lactose] Allergy GAS AND Verified 07/24/18 13:13 PAIN latex Allergy Verified 07/24/18 13:13 orange Allergy Verified 07/25/18 07:25 Penicillins Allergy Hives Verified 07/24/18 13:13 promethazine HCl Allergy Verified 07/24/18 13:13 [From Phenergan] ranitidine HCl [From Zantac] Allergy Verified 07/24/18 13:13 Shellfish Allergy ITCHING Verified 07/24/18 13:13 TROUBLE SWALLOWING Sulfa (Sulfonamide Allergy UNKNOWN Verified 07/24/18 13:13 Antibiotics) NUTS Allergy UNKNOWN Uncoded 07/24/18 13:13 - Home Medications Home Medications: Ambulatory Orders Acetaminophen [Tylenol .Regular Strength -] 650 mg PO Q6H PRN #0 tablet Diltiazem [Cardizem -] 30 mg PO HS #0 tablet 01/08/14 Warfarin Na [Coumadin -] 5 mg PO ASDIR 10/18/14 Diphenhydramine HCl [Benadryl -] 25 mg PO HS 09/23/17 Family Disease History - Family Disease History Family Disease History: CA: Mother (breast cancer), Sister (2 daughters with colon cancer, 1 age 40), Other: Father ( CVA, protein S deficiency) Review of Systems - Review of Systems Constitutional: reports: Chills, Fever, Weakness Eyes: reports: No Symptoms HENT: reports: No Symptoms Neck: reports: No Symptoms Cardiovascular: reports: No Symptoms Respiratory: reports: No Symptoms Gastrointestinal: reports: Constipation Physical Exam-GI Vital Signs: Vital Signs Temperature 98.5 F 07/25/18 14:15 Pulse Rate 83 07/25/18 14:15 Respiratory Rate 16 07/25/18 14:15 Blood Pressure 104/53 07/25/18 14:15 O2 Sat by Pulse Oximetry (%) 98 07/25/18 10:00 CBC,CMP WBC 4.1 K/mm3 (4.0-10.0) 07/25/18 06:15 RBC 3.81 M/mm3 (3.60-5.2) 07/25/18 06:15 Hgb 11.1 GM/dL (10.7-15.3) 07/25/18 06:15 Hct 33.1 % (32.4-45.2) D 07/25/18 06:15 MCV 87.0 fl (80-96) 07/25/18 06:15 MCH 29.2 pg (25.7-33.7) 07/25/18 06:15 MCHC 33.5 g/dl (32.0-36.0) 07/25/18 06:15 RDW 13.6 % (11.6-15.6) 07/25/18 06:15 Plt Count 156 K/MM3 (134-434) D 07/25/18 06:15 MPV 8.9 fl (7.5-11.1) 07/25/18 06:15 Absolute Neuts (auto) 3.0 K/mm3 (1.5-8.0) 07/25/18 06:15 Neutrophils % 73.3 % (42.8-82.8) 07/25/18 06:15 Lymphocytes % 13.8 % (8-40) D 07/25/18 06:15 Monocytes % 11.7 % (3.8-10.2) H 07/25/18 06:15 Eosinophils % 0.5 % (0-4.5) D 07/25/18 06:15 Basophils % 0.7 % (0-2.0) 07/25/18 06:15 Nucleated RBC % 0 % (0-0) 07/25/18 06:15 Sodium 138 mmol/L (136-145) 07/25/18 06:15 Potassium 3.9 mmol/L (3.5-5.1) 07/25/18 06:15 Chloride 103 mmol/L (98-107) 07/25/18 06:15 Carbon Dioxide 28 mmol/L (21-32) 07/25/18 06:15 Anion Gap 7 MMOL/L (8-16) L 07/25/18 06:15 BUN 10 mg/dL (7-18) 07/25/18 06:15 Creatinine 0.9 mg/dL (0.55-1.02) 07/25/18 06:15 Creat Clearance w eGFR > 60 (>60) 07/25/18 06:15 Random Glucose 95 mg/dL (74-106) 07/25/18 06:15 Lactic Acid 1.2 mmol/L (0.0-2.0) 07/24/18 14:46 Calcium 8.1 mg/dL (8.5-10.1) L 07/25/18 06:15 Total Bilirubin 0.5 mg/dL (0.2-1.0) 07/24/18 14:46 AST 73 U/L (15-37) H 07/24/18 14:46 ALT 68 U/L (12-78) 07/24/18 14:46 Alkaline Phosphatase 248 U/L (45-117) H 07/24/18 14:46 Total Protein 8.1 g/dl (6.4-8.2) 07/24/18 14:46 Albumin 3.6 g/dl (3.4-5.0) 07/24/18 14:46 Total Amylase 95 U/L (25-115) 07/24/18 14:46 Lipase 442 U/L (73-393) H 07/24/18 14:46 Current Medications Generic Name Dose Route Start Last Admin Trade Name Johana PRN Reason Stop Dose Admin Diltiazem HCl 30 mg 07/25/18 22:00 Cardizem - PO HS YANCY Diphenhydramine HCl 25 mg 07/25/18 22:00 Benadryl - PO HS YANCY Dextrose/Sodium Chloride 1,000 mls @ 42 mls/hr 07/25/18 01:15 07/25/18 01:31 D5-1/2ns - IV 42 mls/hr ASDIR YANCY Administration Meropenem 1 gm/ Dextrose 100 mls @ 200 mls/hr 07/25/18 16:00 IVPB Q8H-IV YANCY Warfarin Sodium 5 mg 07/25/18 18:00 Coumadin - PO DAILY@1800 YANCY Constitutional: Yes: No Distress Eyes: Yes: Conjunctiva Clear HENT: Yes: Normocephalic Neck: Yes: Supple Cardiovascular: Yes: Regular Rate and Rhythm Respiratory: Yes: CTA Bilaterally Gastrointestinal Inspection: Yes: Scars (vertical suprapubic, transverse RLQ and Pfannensteil inicsions functional left sided end-ileostomy) ...Auscultate: Yes: Normoactive Bowel Sounds ...Palpate: Yes: Soft, Other (nontender) ...Rectal Exam: Yes: Deferred Neurological: Yes: Alert, Oriented Labs: CBC, BMP 07/25/18 06:15 07/25/18 06:15 INR, PTT INR 2.26 (0.83-1.09) H 07/24/18 15:14 Problem List - Problems (1) Abnormal liver enzymes Assessment/Plan: Given her abnormal LFTs with chills and fever I have discussed the possibility of ascending cholangitis with Letty and the need for a sonogram and possible MRCP . I have discussed the potential need for an ERCP to extract CBD stones. I have informed Letty of the potential for such complications as perforation and hemorrhage and for ERCP induced pancreatitis leading to multiorgan failure. I have quoted her a 5-15% incidence. She is in a position to make an informed consent. Dr Pope will be covering this weekend. Code(s): R74.8 - ABNORMAL LEVELS OF OTHER SERUM ENZYMES (2) Chills with fever Code(s): R50.9 - FEVER, UNSPECIFIED (3) UTI (urinary tract infection) Code(s): N39.0 - URINARY TRACT INFECTION, SITE NOT SPECIFIED (4) Colon adenoma Code(s): D12.6 - BENIGN NEOPLASM OF COLON, UNSPECIFIED (5) Peptic ulcer disease Code(s): K27.9 - PEPTIC ULC, SITE UNSP, UNSP AC OR CHR, W/O HEMOR OR PERF (6) Stricture intestinal Code(s): K56.699 - OTHER INTESTNL OBST UNSP TO PARTIAL VERSUS COMPLETE OBST (7) Diverticulosis of both small and large intestine without perforation or abscess without bleeding Code(s): K57.50 - DVRTCLOS OF BOTH SM AND LG INT W/O PERF OR ABSCS W/O BLEED (8) Family history of colon cancer Code(s): Z80.0 - FAMILY HISTORY OF MALIGNANT NEOPLASM OF DIGESTIVE ORGANS (9) Protein S deficiency Code(s): D68.59 - OTHER PRIMARY THROMBOPHILIA (10) Ileostomy present Code(s): Z93.2 - ILEOSTOMY STATUS (11) GERD (gastroesophageal reflux disease) Code(s): K21.9 - GASTRO-ESOPHAGEAL REFLUX DISEASE WITHOUT ESOPHAGITIS (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
[2018-07-25] MEDS: WARFARIN NA 5 MG TABLET (UD) PO SCH (17:42)
[2018-07-25] MEDS ORDERED: cefTRIAXone SODIUM 1 GM VIAL ONE (18:44)
[2018-07-25] MEDS ORDERED: DEXTROSE 5%-WATER - 50 ML IVPB ONE (18:45)
[2018-07-25] MEDS: CEFTRIAXONE 1 GM in DEXTROSE 5%-WATER - 50 ML IVPB SCH (18:47)
[2018-07-25] MEDS: dilTIAZem HCL 30 MG TABLET (FP) PO SCH (21:26)
[2018-07-25] MEDS: diphenhydrAMINE HCL 25 MG CAPSULE (FP) PO SCH (21:27)
[2018-07-26 08:09] LABS: INR 1.98 (0.83-1.09); PROTHROMBIN TIME (PATIENT) 22.4 SEC (9.7-13.0)
[2018-07-26 08:21] LABS: BASO % 0.6 % (0-2.0); EOS % 1.5 % (0-4.5); HEMATOCRIT 34.2 % (32.4-45.2); HEMOGLOBIN 11.4 GM/dL (10.7-15.3); LYMPH % 18.1 % (8-40); MCH 29.5 pg (25.7-33.7); MCHC 33.4 g/dl (32.0-36.0); MEAN CELL VOLUME 88.3 fl (80-96); MEAN PLT VOLUME 8.7 fl (7.5-11.1); MONO % 10.6 % (3.8-10.2); NEUT % 69.2 % (42.8-82.8); PLATELET COUNT 195 K/MM3 (134-434); RBC 3.87 M/mm3 (3.60-5.2); RDW 13.5 % (11.6-15.6); WHITE BLOOD COUNT 4.4 K/mm3 (4.0-10.0)
[2018-07-26 08:50] LABS: CHLORIDE 102 mmol/L (98-107); POTASSIUM 3.9 mmol/L (3.5-5.1); SODIUM 139 mmol/L (136-145)
[2018-07-26 09:00] LABS: ALBUMIN 2.8 g/dl (3.4-5.0); ALK PHOS 216 U/L (45-117); ANION GAP 7 MMOL/L (8-16); BILIRUBIN,DIRECT < 0.2 mg/dL (0.0-0.2); BILIRUBIN,TOTAL 0.2 mg/dL (0.2-1.0); BLOOD UREA NITROGEN 16 mg/dL (7-18); CALCIUM 8.3 mg/dL (8.5-10.1); CO2 30 mmol/L (21-32); GLUCOSE,RANDOM 90 mg/dL (74-106); PHOSPHOROUS 3.5 mg/dL (2.5-4.9); SGOT/AST 50 U/L (15-37); SGPT/ALT 56 U/L (12-78); TOT PROT 6.4 g/dl (6.4-8.2)
[2018-07-26 09:07] LABS: LIPASE 258 U/L (73-393)
[2018-07-26] MEDS ORDERED: PT OWN MED DRAWER 7, Y5N ONE (09:35)
[2018-07-26] MEDS ORDERED: DEXTROSE 5%-WATER - 100 ML IVPB ONE (09:35)
[2018-07-26] MEDS ORDERED: cefTRIAXone SODIUM 1 GM VIAL ONE (09:35)
[2018-07-26] MEDS: CEFTRIAXONE 1 GM in DEXTROSE 5%-WATER - 50 ML IVPB SCH (09:38)
[2018-07-26] MEDS: DEXTROSE 5%-0.45% SALINE 1,000 ML IV SCH (09:38)
--- NOTE | 2018-07-26 11:23 | PN ---
Progress Note, Physician Chief Complaint: Afebrile minimal cough - Current Medication List Current Medications: Active Medications Diltiazem HCl (Cardizem -) 30 mg PO [facility] Last Admin: 07/25/18 21:26 Dose: 30 mg Diphenhydramine HCl (Benadryl -) 25 mg PO HS [facility] Last Admin: 07/25/18 21:27 Dose: Not Given Diphenhydramine HCl (Benadryl Injection -) 25 mg IVPUSH Q6H PRN PRN Reason: ITCHING Last Admin: 07/26/18 09:54 Dose: 25 mg Dextrose/Sodium Chloride (D5-1/2ns -) 1,000 mls @ 42 mls/hr IV ASDIR [facility] Last Admin: 07/26/18 09:38 Dose: 42 mls/hr Ceftriaxone Sodium 1 gm/ (Dextrose) 50 mls @ 100 mls/hr IVPB DAILY [facility] Last Admin: 07/26/18 09:38 Dose: 100 mls/hr Warfarin Sodium (Coumadin -) 5 mg PO DAILY@1800 [facility] Last Admin: 07/25/18 17:42 Dose: 5 mg - Objective Vital Signs: Vital Signs Temperature 97.6 F 07/26/18 09:00 Pulse Rate 92 H 07/26/18 09:00 Respiratory Rate 18 07/26/18 11:00 Blood Pressure 102/76 07/26/18 09:00 O2 Sat by Pulse Oximetry (%) 97 07/26/18 11:00 Constitutional: Yes: Well Nourished, No Distress, Calm Eyes: Yes: Conjunctiva Clear, EOM Intact HENT: Yes: Atraumatic, Normocephalic Neck: Yes: Supple, Trachea Midline. No: Decreased ROM, Lymphadenopathy Cardiovascular: Yes: Pulse Irregular, S1, S2. No: JVD, Murmur Respiratory: Yes: Regular, Other (Rt sided crepts) Gastrointestinal: Yes: Normal Bowel Sounds, Soft Musculoskeletal: No: Back Pain, Joint Stiffness Extremities: No: Calf Tenderness Edema: No Peripheral Pulses: Left Doralis Pedis: 1+, Right Dorsalis Pedis: 1+ Neurological: Yes: Alert, Oriented. No: Aphasia, Asterixis ...Motor Strength: WNL, LUE, LLE, RUE Labs: CBC, BMP 07/26/18 06:40 07/26/18 06:40 INR, PTT INR 1.98 (0.83-1.09) H 07/26/18 06:40 - ....Imaging Chest X-ray: Report Reviewed (Rt ML Pneumonia) Problem List - Problems (1) CAP (community acquired pneumonia) Assessment/Plan: On Ceftriaxone improving f/U ID recommendations cultures are -ve Code(s): J18.9 - PNEUMONIA, UNSPECIFIED ORGANISM Qualifiers: Laterality: right Lung location: middle lobe of lung Qualified Code(s): J18.1 - Lobar pneumonia, unspecified organism (2) A-fib Assessment/Plan: Rate controlled on AC INR 1.98 cont Coumadin 5 mg and Diltizem Code(s): I48.91 - UNSPECIFIED ATRIAL FIBRILLATION Qualifiers: Atrial fibrillation type: chronic Qualified Code(s): I48.2 - Chronic atrial fibrillation (3) Protein S deficiency Assessment/Plan: Diltiazem and coumadin Code(s): D68.59 - OTHER PRIMARY THROMBOPHILIA
[2018-07-26] MEDS: WARFARIN NA 5 MG TABLET (UD) PO SCH (17:13)
[2018-07-26] MEDS: dilTIAZem HCL 30 MG TABLET (FP) PO SCH (22:08)
[2018-07-26] MEDS: diphenhydrAMINE HCL 25 MG CAPSULE (FP) PO SCH ×2 (22:46→23:01)
[2018-07-26] MEDS: diphenhydrAMINE HCL 12.5 MG/5 ML UNIT-DOSE CUPS PO ONE ×2 (22:58→23:02)
[2018-07-27] MEDS: DEXTROSE 5%-0.45% SALINE 1,000 ML IV SCH ×2 (07:08→22:15)
[2018-07-27 07:34] LABS: BASO % 0.9 % (0-2.0); EOS % 3.9 % (0-4.5); HEMATOCRIT 33.2 % (32.4-45.2); HEMOGLOBIN 10.8 GM/dL (10.7-15.3); MCH 28.5 pg (25.7-33.7); MCHC 32.5 g/dl (32.0-36.0); MEAN CELL VOLUME 87.7 fl (80-96); MEAN PLT VOLUME 8.8 fl (7.5-11.1); MONO % 11.7 % (3.8-10.2); NEUT % 59.5 % (42.8-82.8); PLATELET COUNT 223 K/MM3 (134-434); RBC 3.78 M/mm3 (3.60-5.2); RDW 13.3 % (11.6-15.6); WHITE BLOOD COUNT 4.2 K/mm3 (4.0-10.0)
[2018-07-27 07:38] LABS: INR 2.04 (0.83-1.09); PROTHROMBIN TIME (PATIENT) 23.1 SEC (9.7-13.0)
[2018-07-27 07:49] LABS: ALBUMIN 2.8 g/dl (3.4-5.0); ANION GAP 10 MMOL/L (8-16); BLOOD UREA NITROGEN 15 mg/dL (7-18); CALCIUM 8.3 mg/dL (8.5-10.1); CHLORIDE 105 mmol/L (98-107); CO2 28 mmol/L (21-32); GLUCOSE,RANDOM 81 mg/dL (74-106); POTASSIUM 3.6 mmol/L (3.5-5.1); SODIUM 143 mmol/L (136-145)
[2018-07-27 07:55] LABS: ALK PHOS 214 U/L (45-117); BILIRUBIN,TOTAL 0.3 mg/dL (0.2-1.0); CREATININE 0.8 mg/dL (0.55-1.02); SGOT/AST 47 U/L (15-37); SGPT/ALT 56 U/L (12-78); TOT PROT 6.4 g/dl (6.4-8.2)
[2018-07-27] MEDS ORDERED: DEXTROSE 5%-WATER - 50 ML IVPB ONE (08:52)
[2018-07-27] MEDS ORDERED: cefTRIAXone SODIUM 1 GM VIAL ONE (08:52)
[2018-07-27] MEDS: CEFTRIAXONE 1 GM in DEXTROSE 5%-WATER - 50 ML IVPB SCH (09:35)
[2018-07-27] MEDS ORDERED: ACETAMINOPHEN 325 MG TABLET (FP) PO PRN (10:30)
[2018-07-27] MEDS ORDERED: ACETAMINOPHEN 650 MG/20.3 ML ORAL SOLUTION (CUPS) PO PRN (10:35)
--- NOTE | 2018-07-27 10:35 | PN ---
Progress Note, Physician Chief Complaint: C/O Head ache similar to her migraine no neck stiffness - Current Medication List Current Medications: Active Medications Diltiazem HCl (Cardizem -) 30 mg PO [facility] Last Admin: 07/26/18 22:08 Dose: 30 mg Diphenhydramine HCl (Benadryl -) 25 mg PO HS [facility] Last Admin: 07/26/18 23:01 Dose: Not Given Diphenhydramine HCl (Benadryl Injection -) 25 mg IVPUSH Q6H PRN PRN Reason: ITCHING Last Admin: 07/27/18 09:35 Dose: 25 mg Dextrose/Sodium Chloride (D5-1/2ns -) 1,000 mls @ 42 mls/hr IV ASDIR [facility] Last Admin: 07/27/18 07:08 Dose: Not Given Ceftriaxone Sodium 1 gm/ (Dextrose) 50 mls @ 100 mls/hr IVPB DAILY [facility] Last Admin: 07/27/18 09:35 Dose: 100 mls/hr Warfarin Sodium (Coumadin -) 5 mg PO DAILY@1800 [facility] Last Admin: 07/26/18 17:13 Dose: 5 mg - Objective Vital Signs: Vital Signs Temperature 98.5 F 07/27/18 10:00 Pulse Rate 79 07/27/18 10:00 Respiratory Rate 16 07/27/18 10:00 Blood Pressure 140/61 07/27/18 10:00 O2 Sat by Pulse Oximetry (%) 97 07/27/18 03:00 Constitutional: c/o Head ache Well Nourished, No Distress, Calm HEENT: Atraumatic, Normocephalic, Conjunctiva Clear, EOM Intact Neck: Supple, Trachea Midline. No: Decreased ROM, Lymphadenopathy Cardiovascular: Pulse Irregular, S1, S2. No: JVD, Murmur Respiratory: Regular, Other (Rt sided crepts) Gastrointestinal:: Normal Bowel Sounds, Soft Musculoskeletal: No: Back Pain, Joint Stiffness Neurological: Alert, Oriented. Aphasia,Motor Strength: WNL, LUE, LLE, RUE Labs: CBC, BMP 07/27/18 06:00 07/27/18 06:00 INR, PTT INR 2.04 (0.83-1.09) H 07/27/18 06:00 Problem List - Problems (1) CAP (community acquired pneumonia) Assessment/Plan: On Ceftriaxone improving f/U ID recommendations cultures are -ve Code(s): J18.9 - PNEUMONIA, UNSPECIFIED ORGANISM Qualifiers: Laterality: right Lung location: middle lobe of lung Qualified Code(s): J18.1 - Lobar pneumonia, unspecified organism (2) A-fib Assessment/Plan: Rate controlled on AC INR 2.04 cont Coumadin 5 mg and Diltizem Code(s): I48.91 - UNSPECIFIED ATRIAL FIBRILLATION Qualifiers: Atrial fibrillation type: chronic Qualified Code(s): I48.2 - Chronic atrial fibrillation (3) Protein S deficiency Assessment/Plan: Diltiazem and coumadin Code(s): D68.59 - OTHER PRIMARY THROMBOPHILIA (4) Head ache Assessment/Plan: H/O Migraine cont tylenol if remained symptomatic will consider non Contrast head as patient is on coumadin Code(s): R51 - HEADACHE (5) 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
--- NOTE | 2018-07-27 11:52 | PN ---
Progress Note, Physician History of Present Illness: patient still feels weaker refused meropenam as she thinks she is getting some rash and feels as if she is getting hives though the staff has not seen any reaction - Current Medication List Current Medications: Active Medications Acetaminophen (Tylenol Oral Solution -) 650 mg PO Q6H PRN PRN Reason: FEVER Diltiazem HCl (Cardizem -) 30 mg PO [facility] Last Admin: 07/26/18 22:08 Dose: 30 mg Diphenhydramine HCl (Benadryl -) 25 mg PO HS [facility] Last Admin: 07/26/18 23:01 Dose: Not Given Diphenhydramine HCl (Benadryl Injection -) 25 mg IVPUSH Q6H PRN PRN Reason: ITCHING Last Admin: 07/27/18 09:35 Dose: 25 mg Dextrose/Sodium Chloride (D5-1/2ns -) 1,000 mls @ 42 mls/hr IV ASDIR [facility] Last Admin: 07/27/18 07:08 Dose: Not Given Ceftriaxone Sodium 1 gm/ (Dextrose) 50 mls @ 100 mls/hr IVPB DAILY [facility] Last Admin: 07/27/18 09:35 Dose: 100 mls/hr Warfarin Sodium (Coumadin -) 5 mg PO DAILY@1800 [facility] Last Admin: 07/26/18 17:13 Dose: 5 mg - Objective Vital Signs: Vital Signs Temperature 98.5 F 07/27/18 10:00 Pulse Rate 79 07/27/18 10:00 Respiratory Rate 16 07/27/18 10:00 Blood Pressure 140/61 07/27/18 10:00 O2 Sat by Pulse Oximetry (%) 95 07/27/18 11:00 Constitutional: Yes: Calm, Mild Distress, Other (weakness) Cardiovascular: Yes: Regular Rate and Rhythm Respiratory: Yes: Regular, CTA Bilaterally Gastrointestinal: Yes: Normal Bowel Sounds, Soft, Other (ostomy fning) Musculoskeletal: Yes: WNL Extremities: Yes: WNL Neurological: Yes: Alert, Oriented Psychiatric: Yes: Alert, Oriented Labs: CBC, BMP 07/27/18 06:00 07/27/18 06:00 INR, PTT INR 2.04 (0.83-1.09) H 07/27/18 06:00 Assessment/Plan this patient coming in with multiple medical issues including findings in the lungs and uti patient has received ceftriaxone in the emergency room with it seems benadryl at the moment patient is ok after receiving the abx.also her lipase is high so if there is any intrabd pathology going on though she is completely asymptomatic uptill now her cx are negative so this could be viral the way she has presented Problem List - Problems (1) CAP (community acquired pneumonia) Code(s): J18.9 - PNEUMONIA, UNSPECIFIED ORGANISM Qualifiers: Laterality: right Lung location: middle lobe of lung Qualified Code(s): J18.1 - Lobar pneumonia, unspecified organism (2) UTI (urinary tract infection) Code(s): N39.0 - URINARY TRACT INFECTION, SITE NOT SPECIFIED Qualifiers: Urinary tract infection type: acute cystitis Hematuria presence: with hematuria Qualified Code(s): N30.01 - Acute cystitis with hematuria (3) A-fib Code(s): I48.91 - UNSPECIFIED ATRIAL FIBRILLATION Qualifiers: Atrial fibrillation type: chronic Qualified Code(s): I48.2 - Chronic atrial fibrillation (4) Abnormal liver enzymes Code(s): R74.8 - ABNORMAL LEVELS OF OTHER SERUM ENZYMES (5) History of DVT (deep vein thrombosis) Code(s): Z86.718 - PERSONAL HISTORY OF OTHER VENOUS THROMBOSIS AND EMBOLISM (6) Protein S deficiency Code(s): D68.59 - OTHER PRIMARY THROMBOPHILIA (7) Pancreatitis Code(s): K85.90 - ACUTE PANCREATITIS WITHOUT NECROSIS OR INFECTION, UNSP Qualifiers: Chronicity: acute Pancreatitis type: biliary Acute pancreatitis complication: no infection or necrosis Qualified Code(s): K85.10 - Biliary acute pancreatitis without necrosis or infection plan will change to ceftriaxone iv fluids continue monitoring await for other work up
--- NOTE | 2018-07-27 13:37 | PN ---
GI Progress Note Subjective: Covering for Dr. Mccarthy. He is on vacation next week and Dr. Santiago resumes care 07/28 Patient found sitting up in chair, no distress No abdominal pain - Objective Vital Signs: Vital Signs Temperature 98.5 F 07/27/18 10:00 Pulse Rate 79 07/27/18 10:00 Respiratory Rate 16 07/27/18 10:00 Blood Pressure 140/61 07/27/18 10:00 O2 Sat by Pulse Oximetry (%) 95 07/27/18 11:00 Constitutional: Calm Eyes: No: Sclera Icterus Cardiovascular: Yes: Regular Rate and Rhythm Respiratory: Yes: CTA Bilaterally Gastrointestinal Inspection: Yes: Scars (Midline vertical surg. scar), Other ( Ostomy in place in left mid abdomen). No: Distention ...Auscultate: Yes: Normoactive Bowel Sounds ...Palpate: No: Tenderness ...Percussion: No: Tympanitic Edema: No (No LE edema) Neurological: Yes: Alert, Oriented Labs: CBC, BMP 07/27/18 06:00 07/27/18 06:00 INR, PTT INR 2.04 (0.83-1.09) H 07/27/18 06:00 Hepatic Panel Total Bilirubin 0.3 mg/dL (0.2-1.0) 07/27/18 06:00 Direct Bilirubin < 0.2 mg/dL (0.0-0.2) 07/26/18 06:40 AST 47 U/L (15-37) H 07/27/18 06:00 ALT 56 U/L (12-78) 07/27/18 06:00 Alkaline Phosphatase 214 U/L (45-117) H 07/27/18 06:00 Albumin 2.8 g/dl (3.4-5.0) L 07/27/18 06:00 - ....Imaging Ultrasound: Report Reviewed (contracted gallbladder, borderline dilated CBD) Problem List - Problems (1) Abnormal liver enzymes Assessment/Plan: No abdominal pain currently with normal alkaline phosphatase Ordered MRCP for further evaluation of CBD Monitor LFTs The possibility of ERCP was discussed with Erick by Dr. Mccarthy Code(s): R74.8 - ABNORMAL LEVELS OF OTHER SERUM ENZYMES
[2018-07-27] MEDS: WARFARIN NA 5 MG TABLET (UD) PO SCH (17:22)
[2018-07-27] MEDS: diphenhydrAMINE HCL 25 MG CAPSULE (FP) PO SCH (22:14)
[2018-07-27] MEDS: dilTIAZem HCL 30 MG TABLET (FP) PO SCH (22:15)
[2018-07-28] MEDS: DEXTROSE 5%-0.45% SALINE 1,000 ML IV SCH (01:49)
[2018-07-28 07:02] LABS: BASO % 0.9 % (0-2.0); EOS % 4.4 % (0-4.5); HEMATOCRIT 33.6 % (32.4-45.2); LYMPH % 24.2 % (8-40); MCH 28.6 pg (25.7-33.7); MCHC 32.8 g/dl (32.0-36.0); MEAN CELL VOLUME 87.1 fl (80-96); MEAN PLT VOLUME 8.1 fl (7.5-11.1); MONO % 10.1 % (3.8-10.2); NEUT % 60.4 % (42.8-82.8); PLATELET COUNT 231 K/MM3 (134-434); RBC 3.86 M/mm3 (3.60-5.2); RDW 13.4 % (11.6-15.6); WHITE BLOOD COUNT 3.4 K/mm3 (4.0-10.0)
[2018-07-28 07:14] LABS: INR 2.25 (0.83-1.09); PROTHROMBIN TIME (PATIENT) 25.4 SEC (9.7-13.0)
[2018-07-28 07:28] LABS: ALBUMIN 2.8 g/dl (3.4-5.0); ANION GAP 5 MMOL/L (8-16); BLOOD UREA NITROGEN 15 mg/dL (7-18); CALCIUM 8.1 mg/dL (8.5-10.1); CHLORIDE 107 mmol/L (98-107); CO2 28 mmol/L (21-32); GLUCOSE,RANDOM 91 mg/dL (74-106); POTASSIUM 3.6 mmol/L (3.5-5.1); SODIUM 140 mmol/L (136-145)
[2018-07-28 07:32] LABS: ALK PHOS 225 U/L (45-117); BILIRUBIN,TOTAL 0.2 mg/dL (0.2-1.0); CREATININE 0.8 mg/dL (0.55-1.02); SGOT/AST 58 U/L (15-37); SGPT/ALT 71 U/L (12-78); TOT PROT 6.5 g/dl (6.4-8.2)
[2018-07-28 09:05] LABS: BILIRUBIN,DIRECT < 0.2 mg/dL (0.0-0.2)
[2018-07-28] MEDS: CEFTRIAXONE 1 GM in DEXTROSE 5%-WATER - 50 ML IVPB SCH ×2 (09:28→17:02)
--- NOTE | 2018-07-28 09:41 | PN ---
Progress Note (short form) - Note Progress Note: Dr. Carpio to document today. Continues to have elevated alk phosphatase and AST; WBC lower? No wretching. For MRCP; prior to procedure: Xanax ordered. Will also reorder CXR.
[2018-07-28] MEDS ORDERED: ALPRAZolam 0.25 MG TABLET PO PRN (09:42)
--- NOTE | 2018-07-28 11:03 | PN ---
Progress Note, Physician Chief Complaint: Ms Suarez says she is feeling very itchy today and has concerns that the antibiotics are "too much" for her. Denies cp, sob, n/v and says she is feeling better. Expressed interest in being discharged soon. - Current Medication List Current Medications: Active Medications Acetaminophen (Tylenol Oral Solution -) 650 mg PO Q6H PRN PRN Reason: FEVER Alprazolam (Xanax -) 0.5 mg PO ONCE PRN PRN Reason: ANXIETY Last Admin: 07/28/18 10:43 Dose: 0.5 mg Diltiazem HCl (Cardizem -) 30 mg PO HS [facility] Last Admin: 07/27/18 22:15 Dose: Not Given Diphenhydramine HCl (Benadryl -) 25 mg PO HS [facility] Last Admin: 07/27/18 22:14 Dose: Not Given Diphenhydramine HCl (Benadryl Injection -) 25 mg IVPUSH Q6H PRN PRN Reason: ITCHING Last Admin: 07/28/18 10:42 Dose: 25 mg Dextrose/Sodium Chloride (D5-1/2ns -) 1,000 mls @ 42 mls/hr IV ASDIR [facility] Last Admin: 07/28/18 01:49 Dose: Not Given Ceftriaxone Sodium 1 gm/ (Dextrose) 50 mls @ 100 mls/hr IVPB DAILY [facility] Last Admin: 07/28/18 09:28 Dose: Not Given Warfarin Sodium (Coumadin -) 5 mg PO DAILY@1800 [facility] Last Admin: 07/27/18 17:22 Dose: 5 mg - Objective Vital Signs: Vital Signs Temperature 36.7 C 07/28/18 06:00 Pulse Rate 75 07/28/18 06:00 Respiratory Rate 18 07/28/18 06:00 Blood Pressure 124/74 07/28/18 06:00 O2 Sat by Pulse Oximetry (%) 95 07/28/18 03:00 Constitutional: Yes: Well Nourished, No Distress, Calm Cardiovascular: Yes: Pulse Irregular. No: Tachycardia, Gallop, Murmur, Rub Respiratory: Yes: Regular, CTA Bilaterally. No: Rales, Rhonchi, Wheezes Gastrointestinal: Yes: Normal Bowel Sounds, Soft, Other (ileostomy in place). No: Distention, Tenderness Extremities: Yes: WNL Edema: No Labs: CBC, BMP 08/27/18 06:30 07/28/18 06:30 INR, PTT INR 2.25 (0.83-1.09) H 07/28/18 06:30 Problem List - Problems (1) CAP (community acquired pneumonia) Assessment/Plan: -patient says she is feeling better -however now refusing antibiotics secondary to "allergy" -only received 4 days -will d/w ID about alternatives but may not be able to treat further if patient does not desire Code(s): J18.9 - PNEUMONIA, UNSPECIFIED ORGANISM Qualifiers: Laterality: right Lung location: middle lobe of lung Qualified Code(s): J18.1 - Lobar pneumonia, unspecified organism (2) UTI (urinary tract infection) Assessment/Plan: -pansensitve e coli UTI -received merrem on admission and changed to rocephin -again received 4 days of antibiotics -will d/w ID if this is long enough Code(s): N39.0 - URINARY TRACT INFECTION, SITE NOT SPECIFIED Qualifiers: Urinary tract infection type: acute cystitis Hematuria presence: with hematuria Qualified Code(s): N30.01 - Acute cystitis with hematuria (3) A-fib Assessment/Plan: -well controlled -continue current regimen -INR therapeutic Code(s): I48.91 - UNSPECIFIED ATRIAL FIBRILLATION Qualifiers: Atrial fibrillation type: chronic Qualified Code(s): I48.2 - Chronic atrial fibrillation (4) Abnormal liver enzymes Assessment/Plan: -appreciate GI assistance -MRCP today Code(s): R74.8 - ABNORMAL LEVELS OF OTHER SERUM ENZYMES (5) History of DVT (deep vein thrombosis) Assessment/Plan: -continue coumadin Code(s): Z86.718 - PERSONAL HISTORY OF OTHER VENOUS THROMBOSIS AND EMBOLISM (6) Protein S deficiency Assessment/Plan: -fully anticoagulated Code(s): D68.59 - OTHER PRIMARY THROMBOPHILIA (7) Pancreatitis Assessment/Plan: -await MRCP results -patient today without complaint Code(s): K85.90 - ACUTE PANCREATITIS WITHOUT NECROSIS OR INFECTION, UNSP Qualifiers: Chronicity: acute Pancreatitis type: biliary Acute pancreatitis complication: no infection or necrosis Qualified Code(s): K85.10 - Biliary acute pancreatitis without necrosis or infection
--- NOTE | 2018-07-28 13:50 | PN ---
Progress Note, Physician History of Present Illness: patient still feels weaker patient now refusing to take any abx discussed in detail patient now agrees says she feels better - Current Medication List Current Medications: Active Medications Acetaminophen (Tylenol Oral Solution -) 650 mg PO Q6H PRN PRN Reason: FEVER Alprazolam (Xanax -) 0.5 mg PO ONCE PRN PRN Reason: ANXIETY Last Admin: 07/28/18 10:43 Dose: 0.5 mg Diltiazem HCl (Cardizem -) 30 mg PO HS [facility] Last Admin: 07/27/18 22:15 Dose: Not Given Diphenhydramine HCl (Benadryl -) 25 mg PO HS [facility] Last Admin: 07/27/18 22:14 Dose: Not Given Diphenhydramine HCl (Benadryl Injection -) 25 mg IVPUSH Q6H PRN PRN Reason: ITCHING Last Admin: 07/28/18 10:42 Dose: 25 mg Dextrose/Sodium Chloride (D5-1/2ns -) 1,000 mls @ 42 mls/hr IV ASDIR [facility] Last Admin: 07/28/18 01:49 Dose: Not Given Ceftriaxone Sodium 1 gm/ (Dextrose) 50 mls @ 100 mls/hr IVPB DAILY [facility] Last Admin: 07/28/18 09:28 Dose: Not Given Warfarin Sodium (Coumadin -) 5 mg PO DAILY@1800 [facility] Last Admin: 07/27/18 17:22 Dose: 5 mg - Objective Vital Signs: Vital Signs Temperature 98.0 F 07/28/18 06:00 Pulse Rate 75 07/28/18 06:00 Respiratory Rate 18 07/28/18 06:00 Blood Pressure 124/74 07/28/18 06:00 O2 Sat by Pulse Oximetry (%) 95 07/28/18 11:00 Constitutional: Yes: No Distress, Calm Neck: Yes: Supple Cardiovascular: Yes: Regular Rate and Rhythm Respiratory: Yes: Regular, CTA Bilaterally Musculoskeletal: Yes: WNL Extremities: Yes: WNL Neurological: Yes: Alert, Oriented Psychiatric: Yes: Alert, Oriented Labs: CBC, BMP 07/28/18 06:30 07/28/18 06:30 INR, PTT INR 2.25 (0.83-1.09) H 07/28/18 06:30 Assessment/Plan this patient coming in with multiple medical issues including findings in the lungs and uti patient has received ceftriaxone in the emergency room with it seems benadryl at the moment patient is ok after receiving the abx.also her lipase is high so if there is any intrabd pathology going on though she is completely asymptomatic uptill now her cx are negative so this could be viral the way she has presented Problem List - Problems (1) CAP (community acquired pneumonia) Code(s): J18.9 - PNEUMONIA, UNSPECIFIED ORGANISM Qualifiers: Laterality: right Lung location: middle lobe of lung Qualified Code(s): J18.1 - Lobar pneumonia, unspecified organism (2) UTI (urinary tract infection) Code(s): N39.0 - URINARY TRACT INFECTION, SITE NOT SPECIFIED Qualifiers: Urinary tract infection type: acute cystitis Hematuria presence: with hematuria Qualified Code(s): N30.01 - Acute cystitis with hematuria (3) A-fib Code(s): I48.91 - UNSPECIFIED ATRIAL FIBRILLATION Qualifiers: Atrial fibrillation type: chronic Qualified Code(s): I48.2 - Chronic atrial fibrillation (4) Abnormal liver enzymes Code(s): R74.8 - ABNORMAL LEVELS OF OTHER SERUM ENZYMES (5) History of DVT (deep vein thrombosis) Code(s): Z86.718 - PERSONAL HISTORY OF OTHER VENOUS THROMBOSIS AND EMBOLISM (6) Protein S deficiency Code(s): D68.59 - OTHER PRIMARY THROMBOPHILIA (7) Pancreatitis Code(s): K85.90 - ACUTE PANCREATITIS WITHOUT NECROSIS OR INFECTION, UNSP Qualifiers: Chronicity: acute Pancreatitis type: biliary Acute pancreatitis complication: no infection or necrosis Qualified Code(s): K85.10 - Biliary acute pancreatitis without necrosis or infection plan continue ceftriaxone patient going to get mri today monitor closely rest as er the team
[2018-07-28] MEDS ORDERED: cefTRIAXone SODIUM 1 GM VIAL ONE (16:48)
[2018-07-28] MEDS ORDERED: DEXTROSE 5%-WATER - 50 ML IVPB ONE (16:48)
--- NOTE | 2018-07-28 16:57 | PN ---
Progress Note (short form) - Note Progress Note: Pt seen at bedside, chart reviewed. MRCP/MRI reviewed, no sign of biliary obstruction. Review of labs from past shows that she had elevated alk phos in 12/2011 admission, which later came down to normal on subsequent testing. I suspect the elevation now is either a reaction to infection or a drug reaction. Suggest checking her lfts again two weeks after discharge before embarking on any workup now.
[2018-07-28] MEDS: WARFARIN NA 5 MG TABLET (UD) PO SCH (17:01)
[2018-07-28] MEDS: diphenhydrAMINE HCL 25 MG CAPSULE (FP) PO SCH (21:51)
[2018-07-28] MEDS: dilTIAZem HCL 30 MG TABLET (FP) PO SCH (21:51)
[2018-07-29] MEDS: DEXTROSE 5%-0.45% SALINE 1,000 ML IV SCH ×2 (01:15→22:36)
[2018-07-29 07:07] LABS: BASO % 0.9 % (0-2.0); EOS % 4.1 % (0-4.5); HEMATOCRIT 33.6 % (32.4-45.2); HEMOGLOBIN 10.9 GM/dL (10.7-15.3); LYMPH % 25.3 % (8-40); MCH 28.3 pg (25.7-33.7); MCHC 32.5 g/dl (32.0-36.0); MEAN CELL VOLUME 87.2 fl (80-96); MEAN PLT VOLUME 8.2 fl (7.5-11.1); MONO % 9.6 % (3.8-10.2); NEUT % 60.1 % (42.8-82.8); PLATELET COUNT 238 K/MM3 (134-434); RBC 3.85 M/mm3 (3.60-5.2); RDW 13.6 % (11.6-15.6); WHITE BLOOD COUNT 3.7 K/mm3 (4.0-10.0)
[2018-07-29 07:19] LABS: INR 2.21 (0.83-1.09)
[2018-07-29 07:44] LABS: ALBUMIN 2.6 g/dl (3.4-5.0); ANION GAP 4 MMOL/L (8-16); BILIRUBIN,DIRECT < 0.2 mg/dL (0.0-0.2); BLOOD UREA NITROGEN 14 mg/dL (7-18); CHLORIDE 107 mmol/L (98-107); CO2 32 mmol/L (21-32); CREATININE 0.8 mg/dL (0.55-1.02); GLUCOSE,RANDOM 89 mg/dL (74-106); PHOSPHOROUS 3.3 mg/dL (2.5-4.9); POTASSIUM 4.3 mmol/L (3.5-5.1); SGOT/AST 49 U/L (15-37); SGPT/ALT 61 U/L (12-78); SODIUM 143 mmol/L (136-145)
[2018-07-29 07:45] LABS: ALK PHOS 200 U/L (45-117); BILIRUBIN,TOTAL 0.2 mg/dL (0.2-1.0)
[2018-07-29] MEDS ORDERED: cefTRIAXone SODIUM 1 GM VIAL ONE (10:17)
[2018-07-29] MEDS ORDERED: DEXTROSE 5%-WATER - 50 ML IVPB ONE (10:17)
[2018-07-29] MEDS: CEFTRIAXONE 1 GM in DEXTROSE 5%-WATER - 50 ML IVPB SCH (10:25)
--- NOTE | 2018-07-29 10:28 | PN ---
Progress Note (short form) - Note Progress Note: Dr. Carpio to document today. MRI /MRCP: no acute finfings but reports large pulmonary infiltrate and repeat CXR shows no change after 6 days of antibiotics; Plan: CT chest as suggested by MRI Radiology MD and Pulmonary consult. Also WBC has always been low normal.
--- NOTE | 2018-07-29 13:16 | PN ---
Progress Note, Physician Chief Complaint: Ms Suarez says she wants to get up and walk around but concerned as is taking benadryl and it makes her unsteady. Feels that her breathing is much improved. No cp, sob, n/v. - Current Medication List Current Medications: Active Medications Acetaminophen (Tylenol Oral Solution -) 650 mg PO Q6H PRN PRN Reason: FEVER Alprazolam (Xanax -) 0.5 mg PO ONCE PRN PRN Reason: ANXIETY Last Admin: 07/28/18 10:43 Dose: 0.5 mg Diltiazem HCl (Cardizem -) 30 mg PO HS [facility] Last Admin: 07/28/18 21:51 Dose: Not Given Diphenhydramine HCl (Benadryl -) 25 mg PO HS [facility] Last Admin: 07/28/18 21:51 Dose: Not Given Diphenhydramine HCl (Benadryl Injection -) 25 mg IVPUSH Q6H PRN PRN Reason: ITCHING Last Admin: 07/29/18 10:25 Dose: 25 mg Dextrose/Sodium Chloride (D5-1/2ns -) 1,000 mls @ 42 mls/hr IV ASDIR [facility] Last Admin: 07/29/18 01:15 Dose: 42 mls/hr Ceftriaxone Sodium 1 gm/ (Dextrose) 50 mls @ 100 mls/hr IVPB DAILY [facility] Last Admin: 07/29/18 10:25 Dose: 100 mls/hr Warfarin Sodium (Coumadin -) 5 mg PO DAILY@1800 [facility] Last Admin: 07/28/18 17:01 Dose: 5 mg - Objective Vital Signs: Vital Signs Temperature 36.7 C 07/29/18 10:00 Pulse Rate 79 07/29/18 10:00 Respiratory Rate 17 07/29/18 13:00 Blood Pressure 103/67 07/29/18 10:00 O2 Sat by Pulse Oximetry (%) 96 07/29/18 13:00 Constitutional: Yes: Well Nourished, No Distress, Calm Cardiovascular: Yes: Pulse Irregular. No: Tachycardia, Gallop, Murmur, Rub Respiratory: Yes: Regular, Rhonchi (R middle). No: CTA Bilaterally, Rales, Wheezes Gastrointestinal: Yes: Normal Bowel Sounds, Soft. No: Distention, Tenderness Extremities: Yes: WNL Edema: No Labs: CBC, BMP 07/29/18 06:30 07/29/18 06:30 INR, PTT INR 2.21 (0.83-1.09) H 07/29/18 06:30 Problem List - Problems (1) CAP (community acquired pneumonia) Code(s): J18.9 - PNEUMONIA, UNSPECIFIED ORGANISM Qualifiers: Laterality: right Lung location: middle lobe of lung Qualified Code(s): J18.1 - Lobar pneumonia, unspecified organism (2) UTI (urinary tract infection) Code(s): N39.0 - URINARY TRACT INFECTION, SITE NOT SPECIFIED Qualifiers: Urinary tract infection type: acute cystitis Hematuria presence: with hematuria Qualified Code(s): N30.01 - Acute cystitis with hematuria (3) A-fib Code(s): I48.91 - UNSPECIFIED ATRIAL FIBRILLATION Qualifiers: Atrial fibrillation type: chronic Qualified Code(s): I48.2 - Chronic atrial fibrillation (4) Abnormal liver enzymes Code(s): R74.8 - ABNORMAL LEVELS OF OTHER SERUM ENZYMES (5) History of DVT (deep vein thrombosis) Code(s): Z86.718 - PERSONAL HISTORY OF OTHER VENOUS THROMBOSIS AND EMBOLISM (6) Protein S deficiency Code(s): D68.59 - OTHER PRIMARY THROMBOPHILIA (7) Pancreatitis Code(s): K85.90 - ACUTE PANCREATITIS WITHOUT NECROSIS OR INFECTION, UNSP Qualifiers: Chronicity: acute Pancreatitis type: biliary Acute pancreatitis complication: no infection or necrosis Qualified Code(s): K85.10 - Biliary acute pancreatitis without necrosis or infection Assessment/Plan (1) CAP (community acquired pneumonia) Assessment/Plan: -patient was ill for a week prior to presenting -seen on x-ray and confirmed on CT scan -patient discussed care with Dr Valente yesterday, agrees to continue antibiotics -continue rocephin day 5 -unable to finish course as an outpatient secondary to multiple allergies -will d/w ID duration of IV antibiotic course Code(s): J18.9 - PNEUMONIA, UNSPECIFIED ORGANISM Qualifiers: Laterality: right Lung location: middle lobe of lung Qualified Code(s): J18.1 - Lobar pneumonia, unspecified organism (2) UTI (urinary tract infection) Assessment/Plan: -pansensitve e coli UTI -continue rocephin Code(s): N39.0 - URINARY TRACT INFECTION, SITE NOT SPECIFIED Qualifiers: Urinary tract infection type: acute cystitis Hematuria presence: with hematuria Qualified Code(s): N30.01 - Acute cystitis with hematuria (3) A-fib Assessment/Plan: -well controlled -continue current regimen -INR therapeutic Code(s): I48.91 - UNSPECIFIED ATRIAL FIBRILLATION Qualifiers: Atrial fibrillation type: chronic Qualified Code(s): I48.2 - Chronic atrial fibrillation (4) Abnormal liver enzymes Assessment/Plan: -appreciate GI assistance and note reviewed -MRCP read reviewed -follow up LFTs as an outpatient Code(s): R74.8 - ABNORMAL LEVELS OF OTHER SERUM ENZYMES (5) History of DVT (deep vein thrombosis) Assessment/Plan: -continue coumadin Code(s): Z86.718 - PERSONAL HISTORY OF OTHER VENOUS THROMBOSIS AND EMBOLISM (6) Protein S deficiency Assessment/Plan: -fully anticoagulated Code(s): D68.59 - OTHER PRIMARY THROMBOPHILIA (7) Pancreatitis Assessment/Plan: -no sign of pancreatitis Code(s): K85.90 - ACUTE PANCREATITIS WITHOUT NECROSIS OR INFECTION, UNSP Qualifiers: Chronicity: acute Pancreatitis type: biliary Acute pancreatitis complication: no infection or necrosis Qualified Code(s): K85.10 - Biliary acute pancreatitis without necrosis or infection
[2018-07-29] MEDS: WARFARIN NA 5 MG TABLET (UD) PO SCH (17:35)
[2018-07-29] MEDS: dilTIAZem HCL 30 MG TABLET (FP) PO SCH (22:36)
[2018-07-29] MEDS: diphenhydrAMINE HCL 25 MG CAPSULE (FP) PO SCH (22:45)
[2018-07-30] MEDS: DEXTROSE 5%-0.45% SALINE 1,000 ML IV SCH ×2 (06:28→21:30)
[2018-07-30 06:44] LABS: BASO % 0.9 % (0-2.0); EOS % 3.8 % (0-4.5); HEMATOCRIT 32.7 % (32.4-45.2); HEMOGLOBIN 10.6 GM/dL (10.7-15.3); LYMPH % 23.6 % (8-40); MCH 28.4 pg (25.7-33.7); MCHC 32.5 g/dl (32.0-36.0); MEAN CELL VOLUME 87.4 fl (80-96); MEAN PLT VOLUME 8.3 fl (7.5-11.1); MONO % 8.8 % (3.8-10.2); NEUT % 62.9 % (42.8-82.8); PLATELET COUNT 243 K/MM3 (134-434); RBC 3.74 M/mm3 (3.60-5.2); RDW 13.4 % (11.6-15.6)
[2018-07-30 06:48] LABS: INR 2.36 (0.83-1.09); PROTHROMBIN TIME (PATIENT) 26.7 SEC (9.7-13.0)
[2018-07-30 07:20] LABS: ANION GAP 6 MMOL/L (8-16); BLOOD UREA NITROGEN 15 mg/dL (7-18); CALCIUM 8.1 mg/dL (8.5-10.1); CHLORIDE 107 mmol/L (98-107); CO2 28 mmol/L (21-32); CREATININE 0.8 mg/dL (0.55-1.02); GLUCOSE,RANDOM 86 mg/dL (74-106); MAGNESIUM 1.9 mg/dL (1.8-2.4); PHOSPHOROUS 3.1 mg/dL (2.5-4.9); POTASSIUM 3.8 mmol/L (3.5-5.1); SODIUM 141 mmol/L (136-145)
--- NOTE | 2018-07-30 08:41 | PN ---
Progress Note (short form) - Note Progress Note: Dr. Carpio will document today. Dense pneumonia on CT Scan and some granulomas. Await Pulmonary MD; Chest PT and Quantiferon Gold test ordered.
[2018-07-30] MEDS ORDERED: cefTRIAXone SODIUM 1 GM VIAL ONE (09:05)
[2018-07-30] MEDS ORDERED: DEXTROSE 5%-WATER - 50 ML IVPB ONE (09:05)
--- NOTE | 2018-07-30 09:05 | PN ---
Progress Note, Physician History of Present Illness: patients mri results noted patients ct scan result noted dense infiltrate noted in the lungs patient clinically looks stable d/w the patient about abx she is not too inclined to take them says she is starting to get better - Current Medication List Current Medications: Active Medications Acetaminophen (Tylenol Oral Solution -) 650 mg PO Q6H PRN PRN Reason: FEVER Alprazolam (Xanax -) 0.5 mg PO ONCE PRN PRN Reason: ANXIETY Last Admin: 07/28/18 10:43 Dose: 0.5 mg Diltiazem HCl (Cardizem -) 30 mg PO HS [facility] Last Admin: 07/29/18 22:36 Dose: 30 mg Diphenhydramine HCl (Benadryl -) 25 mg PO HS [facility] Last Admin: 07/29/18 22:45 Dose: Not Given Diphenhydramine HCl (Benadryl Injection -) 25 mg IVPUSH Q6H PRN PRN Reason: ITCHING Last Admin: 07/29/18 10:25 Dose: 25 mg Dextrose/Sodium Chloride (D5-1/2ns -) 1,000 mls @ 42 mls/hr IV [facility]IR [facility] Last Admin: 07/30/18 06:28 Dose: Not Given Ceftriaxone Sodium 1 gm/ (Dextrose) 50 mls @ 100 mls/hr IVPB DAILY [facility] Last Admin: 07/29/18 10:25 Dose: 100 mls/hr Warfarin Sodium (Coumadin -) 5 mg PO DAILY@1800 [facility] Last Admin: 07/29/18 17:35 Dose: 5 mg - Objective Vital Signs: Vital Signs Temperature 98.4 F 07/30/18 06:00 Pulse Rate 74 07/30/18 06:00 Respiratory Rate 16 07/30/18 06:00 Blood Pressure 90/51 07/30/18 06:00 O2 Sat by Pulse Oximetry (%) 96 07/29/18 20:56 Constitutional: Yes: No Distress, Calm Cardiovascular: Yes: Regular Rate and Rhythm Respiratory: Yes: Regular, CTA Bilaterally Gastrointestinal: Yes: Normal Bowel Sounds, Soft, Other (ostomy functioning well ) Musculoskeletal: Yes: WNL Extremities: Yes: WNL Neurological: Yes: Alert, Oriented Labs: CBC, BMP 07/30/18 06:00 07/30/18 06:00 INR, PTT INR 2.36 (0.83-1.09) H 07/30/18 06:00 - ....Imaging Cat Scan: Report Reviewed, Image Reviewed MRI: Report Reviewed, Image Reviewed Assessment/Plan this patient coming in with multiple medical issues including findings in the lungs and uti patient has received ceftriaxone in the emergency room with it seems benadryl at the moment patient is ok after receiving the abx.also her lipase is high so if there is any intrabd pathology going on though she is completely asymptomatic uptill now her cx are negative so this could be viral the way she has presented Problem List - Problems (1) CAP (community acquired pneumonia) Code(s): J18.9 - PNEUMONIA, UNSPECIFIED ORGANISM Qualifiers: Laterality: right Lung location: middle lobe of lung Qualified Code(s): J18.1 - Lobar pneumonia, unspecified organism (2) UTI (urinary tract infection) Code(s): N39.0 - URINARY TRACT INFECTION, SITE NOT SPECIFIED Qualifiers: Urinary tract infection type: acute cystitis Hematuria presence: with hematuria Qualified Code(s): N30.01 - Acute cystitis with hematuria (3) A-fib Code(s): I48.91 - UNSPECIFIED ATRIAL FIBRILLATION Qualifiers: Atrial fibrillation type: chronic Qualified Code(s): I48.2 - Chronic atrial fibrillation (4) Abnormal liver enzymes Code(s): R74.8 - ABNORMAL LEVELS OF OTHER SERUM ENZYMES (5) History of DVT (deep vein thrombosis) Code(s): Z86.718 - PERSONAL HISTORY OF OTHER VENOUS THROMBOSIS AND EMBOLISM (6) Protein S deficiency Code(s): D68.59 - OTHER PRIMARY THROMBOPHILIA (7) Pancreatitis Code(s): K85.90 - ACUTE PANCREATITIS WITHOUT NECROSIS OR INFECTION, UNSP Qualifiers: Chronicity: acute Pancreatitis type: biliary Acute pancreatitis complication: no infection or necrosis Qualified Code(s): K85.10 - Biliary acute pancreatitis without necrosis or infection plan i have discussed with patient about changing abx she prefers not to i will continue ceftriaxone for now we will see how the patient does all cx negative so far
[2018-07-30] MEDS: CEFTRIAXONE 1 GM in DEXTROSE 5%-WATER - 50 ML IVPB SCH (09:53)
--- NOTE | 2018-07-30 13:55 | PN ---
Progress Note (short form) - Note Progress Note: PULMONARY CONSULTATATION DICTATED 07/30/18 IMP [facility] PNEUMONIA COMMUNITY ACQUIRED H/O DVT PROTEIN S DEFICIENCY AFIB MVP H/O END-ILEOSTOMY MULTIPLE ALLERGIES ELEVATED LFTS PLAN IV ABX PER ID O2 PRN ANTI-TUSSIVES PRN AC F/U CHEST X-RAYS MONITOR LFTS F/U CHEST CT IN 6-8 WKS TO DOCUMENT RESOLUTION OF INFILTRATES DR SALAS Problem List - Problems (1) A-fib Code(s): I48.91 - UNSPECIFIED ATRIAL FIBRILLATION Qualifiers: Atrial fibrillation type: chronic Qualified Code(s): I48.2 - Chronic atrial fibrillation (2) Abnormal liver enzymes Code(s): R74.8 - ABNORMAL LEVELS OF OTHER SERUM ENZYMES (3) CAP (community acquired pneumonia) Code(s): J18.9 - PNEUMONIA, UNSPECIFIED ORGANISM Qualifiers: Laterality: right Lung location: middle lobe of lung Qualified Code(s): J18.1 - Lobar pneumonia, unspecified organism (4) History of DVT (deep vein thrombosis) Code(s): Z86.718 - PERSONAL HISTORY OF OTHER VENOUS THROMBOSIS AND EMBOLISM (5) Ileostomy present Code(s): Z93.2 - ILEOSTOMY STATUS (6) Protein S deficiency Code(s): D68.59 - OTHER PRIMARY THROMBOPHILIA (7) Migraine Code(s): G43.909 - MIGRAINE, UNSP, NOT INTRACTABLE, WITHOUT STATUS MIGRAINOSUS Qualifiers: Migraine type: without aura Status migrainosus presence: without status migrainosus Intractability: not intractable Qualified Code(s): G43.009 - Migraine without aura, not intractable, without status migrainosus
--- NOTE | 2018-07-30 14:37 | PN ---
Progress Note, Physician Chief Complaint: Ms Suarez says she is doing well. Beginning to cough up sputum. No cp, sob, n/v. - Current Medication List Current Medications: Active Medications Acetaminophen (Tylenol Oral Solution -) 650 mg PO Q6H PRN PRN Reason: FEVER Alprazolam (Xanax -) 0.5 mg PO ONCE PRN PRN Reason: ANXIETY Last Admin: 07/28/18 10:43 Dose: 0.5 mg Diltiazem HCl (Cardizem -) 30 mg PO [facility] Last Admin: 07/29/18 22:36 Dose: 30 mg Diphenhydramine HCl (Benadryl Injection -) 25 mg IVPUSH Q6H PRN PRN Reason: ITCHING Last Admin: 07/30/18 09:48 Dose: 25 mg Diphenhydramine HCl (Benadryl Oral Solution -) 25 mg PO [facility] Dextrose/Sodium Chloride (D5-1/2ns -) 1,000 mls @ 42 mls/hr IV ASDIR [facility] Last Admin: 07/30/18 06:28 Dose: Not Given Ceftriaxone Sodium 1 gm/ (Dextrose) 50 mls @ 100 mls/hr IVPB DAILY [facility] Last Admin: 07/30/18 09:53 Dose: 100 mls/hr Warfarin Sodium (Coumadin -) 5 mg PO DAILY@1800 [facility] Last Admin: 07/29/18 17:35 Dose: 5 mg - Objective Vital Signs: Vital Signs Temperature 36.7 C 07/30/18 10:00 Pulse Rate 83 07/30/18 10:00 Respiratory Rate 18 07/30/18 10:00 Blood Pressure 91/66 07/30/18 10:00 O2 Sat by Pulse Oximetry (%) 98 07/30/18 09:00 Constitutional: Yes: Well Nourished, No Distress, Calm Cardiovascular: Yes: Regular Rate and Rhythm. No: Gallop, Murmur, Rub Respiratory: Yes: Regular, CTA Bilaterally. No: Rales, Rhonchi, Wheezes Gastrointestinal: Yes: Normal Bowel Sounds, Soft. No: Distention, Tenderness Extremities: Yes: WNL Edema: No Labs: CBC, BMP 07/30/18 06:00 07/30/18 06:00 INR, PTT INR 2.36 (0.83-1.09) H 07/30/18 06:00 Problem List - Problems (1) CAP (community acquired pneumonia) Code(s): J18.9 - PNEUMONIA, UNSPECIFIED ORGANISM Qualifiers: Laterality: right Lung location: middle lobe of lung Qualified Code(s): J18.1 - Lobar pneumonia, unspecified organism (2) UTI (urinary tract infection) Code(s): N39.0 - URINARY TRACT INFECTION, SITE NOT SPECIFIED Qualifiers: Urinary tract infection type: acute cystitis Hematuria presence: with hematuria Qualified Code(s): N30.01 - Acute cystitis with hematuria (3) A-fib Code(s): I48.91 - UNSPECIFIED ATRIAL FIBRILLATION Qualifiers: Atrial fibrillation type: chronic Qualified Code(s): I48.2 - Chronic atrial fibrillation (4) Abnormal liver enzymes Code(s): R74.8 - ABNORMAL LEVELS OF OTHER SERUM ENZYMES (5) History of DVT (deep vein thrombosis) Code(s): Z86.718 - PERSONAL HISTORY OF OTHER VENOUS THROMBOSIS AND EMBOLISM (6) Protein S deficiency Code(s): D68.59 - OTHER PRIMARY THROMBOPHILIA (7) Pancreatitis Code(s): K85.90 - ACUTE PANCREATITIS WITHOUT NECROSIS OR INFECTION, UNSP Qualifiers: Chronicity: acute Pancreatitis type: biliary Acute pancreatitis complication: no infection or necrosis Qualified Code(s): K85.10 - Biliary acute pancreatitis without necrosis or infection Assessment/Plan (1) CAP (community acquired pneumonia) Assessment/Plan: -case d/w Dr Valente -unable to transition to oral antibiotics secondary to multiple allergies -continue rocephin day 6 Code(s): J18.9 - PNEUMONIA, UNSPECIFIED ORGANISM Qualifiers: Laterality: right Lung location: middle lobe of lung Qualified Code(s): J18.1 - Lobar pneumonia, unspecified organism (2) UTI (urinary tract infection) Assessment/Plan: -pansensitve e coli UTI -continue rocephin Code(s): N39.0 - URINARY TRACT INFECTION, SITE NOT SPECIFIED Qualifiers: Urinary tract infection type: acute cystitis Hematuria presence: with hematuria Qualified Code(s): N30.01 - Acute cystitis with hematuria (3) A-fib Assessment/Plan: -well controlled -continue current regimen -INR therapeutic Code(s): I48.91 - UNSPECIFIED ATRIAL FIBRILLATION Qualifiers: Atrial fibrillation type: chronic Qualified Code(s): I48.2 - Chronic atrial fibrillation (4) Abnormal liver enzymes Assessment/Plan: -appreciate GI assistance and note reviewed -MRCP read reviewed -follow up LFTs as an outpatient Code(s): R74.8 - ABNORMAL LEVELS OF OTHER SERUM ENZYMES (5) History of DVT (deep vein thrombosis) Assessment/Plan: -continue coumadin Code(s): Z86.718 - PERSONAL HISTORY OF OTHER VENOUS THROMBOSIS AND EMBOLISM (6) Protein S deficiency Assessment/Plan: -fully anticoagulated Code(s): D68.59 - OTHER PRIMARY THROMBOPHILIA (7) Pancreatitis Assessment/Plan: -no sign of pancreatitis Code(s): K85.90 - ACUTE PANCREATITIS WITHOUT NECROSIS OR INFECTION, UNSP Qualifiers: Chronicity: acute Pancreatitis type: biliary Acute pancreatitis complication: no infection or necrosis Qualified Code(s): K85.10 - Biliary acute pancreatitis without necrosis or infection
--- NOTE | 2018-07-30 14:54 | PN ---
Progress Note, Physician History of Present Illness: says she is doing well coughing now with no sputum production - Current Medication List Current Medications: Active Medications Acetaminophen (Tylenol Oral Solution -) 650 mg PO Q6H PRN PRN Reason: FEVER Alprazolam (Xanax -) 0.5 mg PO ONCE PRN PRN Reason: ANXIETY Last Admin: 07/28/18 10:43 Dose: 0.5 mg Diltiazem HCl (Cardizem -) 30 mg PO [facility] Last Admin: 07/29/18 22:36 Dose: 30 mg Diphenhydramine HCl (Benadryl Injection -) 25 mg IVPUSH Q6H PRN PRN Reason: ITCHING Last Admin: 07/30/18 09:48 Dose: 25 mg Diphenhydramine HCl (Benadryl Oral Solution -) 25 mg PO [facility] Dextrose/Sodium Chloride (D5-1/2ns -) 1,000 mls @ 42 mls/hr IV ASDIR [facility] Last Admin: 07/30/18 06:28 Dose: Not Given Ceftriaxone Sodium 1 gm/ (Dextrose) 50 mls @ 100 mls/hr IVPB DAILY [facility] Last Admin: 07/30/18 09:53 Dose: 100 mls/hr Lactobacillus Acidophilus (Bacid -) 1 tab PO DAILY [facility] Warfarin Sodium (Coumadin -) 5 mg PO DAILY@1800 [facility] Last Admin: 07/29/18 17:35 Dose: 5 mg - Objective Vital Signs: Vital Signs Temperature 98.3 F 07/30/18 14:00 Pulse Rate 77 07/30/18 14:00 Respiratory Rate 18 07/30/18 14:00 Blood Pressure 110/51 07/30/18 14:00 O2 Sat by Pulse Oximetry (%) 98 07/30/18 09:00 Constitutional: Yes: No Distress, Calm Neck: Yes: Supple, Trachea Midline Cardiovascular: Yes: Regular Rate and Rhythm Respiratory: Yes: Regular Gastrointestinal: Yes: Normal Bowel Sounds, Soft Musculoskeletal: Yes: WNL Extremities: Yes: WNL Neurological: Yes: Alert, Oriented Labs: CBC, BMP 07/30/18 06:00 07/30/18 06:00 INR, PTT INR 2.36 (0.83-1.09) H 07/30/18 06:00 Assessment/Plan this patient coming in with multiple medical issues including findings in the lungs and uti patient has received ceftriaxone in the emergency room with it seems benadryl at the moment patient is ok after receiving the abx.also her lipase is high so if there is any intrabd pathology going on though she is completely asymptomatic uptill now her cx are negative so this could be viral the way she has presented Problem List - Problems (1) CAP (community acquired pneumonia) Code(s): J18.9 - PNEUMONIA, UNSPECIFIED ORGANISM Qualifiers: Laterality: right Lung location: middle lobe of lung Qualified Code(s): J18.1 - Lobar pneumonia, unspecified organism (2) UTI (urinary tract infection) Code(s): N39.0 - URINARY TRACT INFECTION, SITE NOT SPECIFIED Qualifiers: Urinary tract infection type: acute cystitis Hematuria presence: with hematuria Qualified Code(s): N30.01 - Acute cystitis with hematuria (3) A-fib Code(s): I48.91 - UNSPECIFIED ATRIAL FIBRILLATION Qualifiers: Atrial fibrillation type: chronic Qualified Code(s): I48.2 - Chronic atrial fibrillation (4) Abnormal liver enzymes Code(s): R74.8 - ABNORMAL LEVELS OF OTHER SERUM ENZYMES (5) History of DVT (deep vein thrombosis) Code(s): Z86.718 - PERSONAL HISTORY OF OTHER VENOUS THROMBOSIS AND EMBOLISM (6) Protein S deficiency Code(s): D68.59 - OTHER PRIMARY THROMBOPHILIA (7) Pancreatitis Code(s): K85.90 - ACUTE PANCREATITIS WITHOUT NECROSIS OR INFECTION, UNSP Qualifiers: Chronicity: acute Pancreatitis type: biliary Acute pancreatitis complication: no infection or necrosis Qualified Code(s): K85.10 - Biliary acute pancreatitis without necrosis or infection plan patient will complete 7 days of abx tomorrow patient is adamant that she will not take abx at home i would not give iv after tomorrows dose i would switch her to doxy 100 mg po bid and try and then will give her for couple of days she would also need a repeat ct scan
--- NOTE | 2018-07-30 15:02 | CONS ---
DATE OF CONSULTATION: 07/30/2018 REFERRING PHYSICIAN: Rasta Kebede MD HISTORY OF PRESENT ILLNESS: The patient is a 73-year-old white female with an extensive past medical history that includes multiple allergies, atrial fibrillation currently maintained on Coumadin, history of protein S deficiency diagnosed in maintained on Coumadin, history of DVT, ASHD, colostomy, migraines, vertigo, admitted to [facility] on July 24 with a complaint of fevers and chills. Patient states that 2 days prior to admission, she started developing shaking chills associated with high fever of up to 102. She denied any shortness of breath or cough at the time. She did have nausea and vomiting. She initially did not seek medical attention. She presented to the emergency room with the above. In the emergency room, she was felt to have a right middle lobe pneumonia. So, she was admitted to the floor for further management. She was evaluated by infectious disease and placed on broad spectrum antibiotics and clinical improvement. Patient states that approximately a week prior to her developing the symptoms, her daughter, who lives at home, was ill with pneumonia. Patients hospitalization, she also evaluated by Dr. Valente for infectious disease as well as GI consultation by Dr. Mccarthy. Patient underwent a CT scan of the chest on July 29, which revealed a dense consolidation of the right middle lobe suspicious for pneumonia and additional ground-glass opacification right middle lobe and lower lobes. Patient is a nonsmoker. She denies any history of COPD. She states that she has been exposed to chemicals, when she previously worked at [employer] in the 80s. She also states that occasionally she gets cough and wheezing when exposed to chemicals. Patient denies any history of asthma and has never had a pulmonary function test. PAST MEDICAL HISTORY: Again includes atrial fibrillation, protein S deficiency, DVT, MULTIPLE FOOD ALLERGIES, colostomy, pneumonia, history of DVT. CURRENT MEDICATIONS: Include Tylenol, ceftriaxone, Coumadin, Xanax, Cardizem, and Benadryl. REVIEW OF SYSTEMS: Positive for cough. No chest pain. No palpitations. No fevers. No chills at this time. No nausea. No vomiting. No abdominal pain. PHYSICAL EXAMINATION: General: The patient is a well-developed and -nourished female, awake, alert, in no acute distress. Vital signs: She is afebrile, blood pressure is 91/66, respiratory rate is 18, O2 saturation is 98% on room air. HEENT: Head is normocephalic atraumatic. Neck: Supple. Heart: Regular, S1, S2. Chest: Clear. Abdomen: Soft. Bowel sounds positive. Extremities: No cyanosis or edema. LABORATORIES: Legionella antigen negative. Pneumococcal antigen negative. Urine culture positive for E. coli. WBC is 4, hemoglobin 10.6, hematocrit 32.7, with a platelet count of 243,000. INR is 2.36. BUN 15, creatinine 0.8. Chest CT again reveals the right middle lobe consolidation with ground-glass opacification in the right middle lobe, medial segment, and right lower lobe. IMPRESSION: 1. Right middle lobe pneumonia, community-acquired. 2. History of deep vein venous thrombosis, protein S deficiency, on Coumadin. 3. Atrial fibrillation. 4. History of colostomy. 5. History of migraines. PLAN: Continue antibiotic therapy as per Infectious Disease, supplemental O2 p.r.n., antitussives p.r.n. pain, follow up chest x-ray as outpatient and document resolution of infiltrates. If no improvement, then patient will require bronchoscopy. Thank you. Will follow closely with you. RAUL SALAS M.D. JOSETTE/[id number]
[2018-07-30] MEDS: WARFARIN NA 5 MG TABLET (UD) PO SCH (18:33)
[2018-07-30] MEDS: dilTIAZem HCL 30 MG TABLET (FP) PO SCH (21:30)
[2018-07-30] MEDS: diphenhydrAMINE HCL 12.5 MG/5 ML UNIT-DOSE CUPS PO SCH (21:30)
[2018-07-31 07:08] LABS: BASO % 0.8 % (0-2.0); EOS % 3.8 % (0-4.5); HEMATOCRIT 32.1 % (32.4-45.2); HEMOGLOBIN 10.4 GM/dL (10.7-15.3); LYMPH % 21.6 % (8-40); MCH 28.2 pg (25.7-33.7); MCHC 32.3 g/dl (32.0-36.0); MEAN CELL VOLUME 87.4 fl (80-96); MEAN PLT VOLUME 8.3 fl (7.5-11.1); MONO % 8.6 % (3.8-10.2); NEUT % 65.2 % (42.8-82.8); PLATELET COUNT 256 K/MM3 (134-434); RBC 3.68 M/mm3 (3.60-5.2); RDW 13.9 % (11.6-15.6); WHITE BLOOD COUNT 4.4 K/mm3 (4.0-10.0)
[2018-07-31 07:25] LABS: INR 2.34 (0.83-1.09); PROTHROMBIN TIME (PATIENT) 26.4 SEC (9.7-13.0)
[2018-07-31 08:08] LABS: ANION GAP 5 MMOL/L (8-16); BLOOD UREA NITROGEN 13 mg/dL (7-18); CALCIUM 8.2 mg/dL (8.5-10.1); CHLORIDE 107 mmol/L (98-107); CO2 29 mmol/L (21-32); GLUCOSE,RANDOM 84 mg/dL (74-106); POTASSIUM 3.5 mmol/L (3.5-5.1); SODIUM 141 mmol/L (136-145)
[2018-07-31 08:09] LABS: CREATININE 0.8 mg/dL (0.55-1.02); MAGNESIUM 1.9 mg/dL (1.8-2.4); PHOSPHOROUS 3.4 mg/dL (2.5-4.9)
--- NOTE | 2018-07-31 08:36 | PN ---
Progress Note (short form) - Note Progress Note: Dr. Carpio to document today. Dr. Pelayo saw patient. Dr. Valente is aware patient does not want to take antibiotics at home but it might be advisable to start doxycycline this evening with her antihistamine and see if she tolerates it. She also prefers liquids and we do have a suspension in our formulary.
[2018-07-31] MEDS ORDERED: PT OWN MED DRAWER 7, Y5N ONE (10:30)
[2018-07-31] MEDS ORDERED: cefTRIAXone SODIUM 1 GM VIAL ONE (10:30)
[2018-07-31] MEDS ORDERED: DEXTROSE 5%-WATER - 50 ML IVPB ONE (10:31)
[2018-07-31] MEDS: CEFTRIAXONE 1 GM in DEXTROSE 5%-WATER - 50 ML IVPB SCH (10:41)
[2018-07-31] MEDS: LACTOBACILLUS ACIDOPHILUS 1 TABLET PO SCH (10:42)
[2018-07-31 11:48] VITALS: BMI 25.1
--- NOTE | 2018-07-31 12:20 | PN ---
Progress Note, Physician Chief Complaint: Ms Suarez says she is doing well. No cp, sob, n/v. States concerns about trying lactobacillus, patient reassured - Current Medication List Current Medications: Active Medications Acetaminophen (Tylenol Oral Solution -) 650 mg PO Q6H PRN PRN Reason: FEVER Alprazolam (Xanax -) 0.5 mg PO ONCE PRN PRN Reason: ANXIETY Last Admin: 07/28/18 10:43 Dose: 0.5 mg Diltiazem HCl (Cardizem -) 30 mg PO [facility] Last Admin: 07/30/18 21:30 Dose: 30 mg Diphenhydramine HCl (Benadryl Injection -) 25 mg IVPUSH Q6H PRN PRN Reason: ITCHING Last Admin: 07/31/18 10:42 Dose: 25 mg Diphenhydramine HCl (Benadryl Oral Solution -) 25 mg PO [facility] Last Admin: 07/30/18 21:30 Dose: 25 mg Doxycycline Monohydrate (Vibramycin Oral Suspension -) 100 mg PO BID@1000,1800 [facility] Dextrose/Sodium Chloride (D5-1/2ns -) 1,000 mls @ 42 mls/hr IV [facility] Last Admin: 07/30/18 21:30 Dose: 42 mls/hr Lactobacillus Acidophilus (Bacid -) 1 tab PO DAILY [facility] Last Admin: 07/31/18 10:42 Dose: 1 tab Warfarin Sodium (Coumadin -) 5 mg PO DAILY@1800 [facility] Last Admin: 07/30/18 18:33 Dose: 5 mg - Objective Vital Signs: Vital Signs Temperature 36.6 C 07/31/18 06:00 Pulse Rate 76 07/31/18 06:00 Respiratory Rate 18 07/31/18 06:00 Blood Pressure 111/72 07/31/18 06:00 O2 Sat by Pulse Oximetry (%) 97 07/30/18 21:00 Constitutional: Yes: Well Nourished, No Distress, Calm Cardiovascular: Yes: Pulse Irregular. No: Tachycardia, Gallop, Murmur, Rub Respiratory: Yes: Regular, CTA Bilaterally. No: Rales, Rhonchi, Wheezes Gastrointestinal: Yes: Normal Bowel Sounds, Soft. No: Distention, Tenderness Extremities: Yes: WNL Edema: No Labs: CBC, BMP 07/31/18 06:00 07/31/18 06:00 INR, PTT INR 2.34 (0.83-1.09) H 07/31/18 06:00 Problem List - Problems (1) CAP (community acquired pneumonia) Code(s): J18.9 - PNEUMONIA, UNSPECIFIED ORGANISM Qualifiers: Laterality: right Lung location: middle lobe of lung Qualified Code(s): J18.1 - Lobar pneumonia, unspecified organism (2) UTI (urinary tract infection) Code(s): N39.0 - URINARY TRACT INFECTION, SITE NOT SPECIFIED Qualifiers: Urinary tract infection type: acute cystitis Hematuria presence: with hematuria Qualified Code(s): N30.01 - Acute cystitis with hematuria (3) A-fib Code(s): I48.91 - UNSPECIFIED ATRIAL FIBRILLATION Qualifiers: Atrial fibrillation type: chronic Qualified Code(s): I48.2 - Chronic atrial fibrillation (4) Abnormal liver enzymes Code(s): R74.8 - ABNORMAL LEVELS OF OTHER SERUM ENZYMES (5) History of DVT (deep vein thrombosis) Code(s): Z86.718 - PERSONAL HISTORY OF OTHER VENOUS THROMBOSIS AND EMBOLISM (6) Protein S deficiency Code(s): D68.59 - OTHER PRIMARY THROMBOPHILIA (7) Pancreatitis Code(s): K85.90 - ACUTE PANCREATITIS WITHOUT NECROSIS OR INFECTION, UNSP Qualifiers: Chronicity: acute Pancreatitis type: biliary Acute pancreatitis complication: no infection or necrosis Qualified Code(s): K85.10 - Biliary acute pancreatitis without necrosis or infection Assessment/Plan (1) CAP (community acquired pneumonia) Assessment/Plan: -ID note reviewed -continue rocephin day 7 -rocephin stopped after today's dose per ID recommendations -will trial oral doxycycline tonight to make sure no allergic reaction Code(s): J18.9 - PNEUMONIA, UNSPECIFIED ORGANISM Qualifiers: Laterality: right Lung location: middle lobe of lung Qualified Code(s): J18.1 - Lobar pneumonia, unspecified organism (2) UTI (urinary tract infection) Assessment/Plan: -pansensitve e coli UTI -s/p full treatment of rocephin Code(s): N39.0 - URINARY TRACT INFECTION, SITE NOT SPECIFIED Qualifiers: Urinary tract infection type: acute cystitis Hematuria presence: with hematuria Qualified Code(s): N30.01 - Acute cystitis with hematuria (3) A-fib Assessment/Plan: -well controlled -continue current regimen -INR therapeutic Code(s): I48.91 - UNSPECIFIED ATRIAL FIBRILLATION Qualifiers: Atrial fibrillation type: chronic Qualified Code(s): I48.2 - Chronic atrial fibrillation (4) Abnormal liver enzymes Assessment/Plan: -appreciate GI assistance and note reviewed -MRCP read reviewed -follow up LFTs as an outpatient Code(s): R74.8 - ABNORMAL LEVELS OF OTHER SERUM ENZYMES (5) History of DVT (deep vein thrombosis) Assessment/Plan: -continue coumadin Code(s): Z86.718 - PERSONAL HISTORY OF OTHER VENOUS THROMBOSIS AND EMBOLISM (6) Protein S deficiency Assessment/Plan: -fully anticoagulated Code(s): D68.59 - OTHER PRIMARY THROMBOPHILIA (7) Pancreatitis Assessment/Plan: -no sign of pancreatitis Code(s): K85.90 - ACUTE PANCREATITIS WITHOUT NECROSIS OR INFECTION, UNSP Qualifiers: Chronicity: acute Pancreatitis type: biliary Acute pancreatitis complication: no infection or necrosis Qualified Code(s): K85.10 - Biliary acute pancreatitis without necrosis or infection Dispo -check only INR tomorrow, otherwise lab holiday -possible discharge tomorrow
--- NOTE | 2018-07-31 12:26 | PN ---
Progress Note, Physician History of Present Illness: patient doing well no issues says headache but breathing better - Current Medication List Current Medications: Active Medications Acetaminophen (Tylenol Oral Solution -) 650 mg PO Q6H PRN PRN Reason: FEVER Alprazolam (Xanax -) 0.5 mg PO ONCE PRN PRN Reason: ANXIETY Last Admin: 07/28/18 10:43 Dose: 0.5 mg Diltiazem HCl (Cardizem -) 30 mg PO [facility] Last Admin: 07/30/18 21:30 Dose: 30 mg Diphenhydramine HCl (Benadryl Injection -) 25 mg IVPUSH Q6H PRN PRN Reason: ITCHING Last Admin: 07/31/18 10:42 Dose: 25 mg Diphenhydramine HCl (Benadryl Oral Solution -) 25 mg PO [facility] Last Admin: 07/30/18 21:30 Dose: 25 mg Doxycycline Monohydrate (Vibramycin Oral Suspension -) 100 mg PO BID@1000,1800 [facility] Dextrose/Sodium Chloride (D5-1/2ns -) 1,000 mls @ 42 mls/hr IV ASDIR [facility] Last Admin: 07/30/18 21:30 Dose: 42 mls/hr Lactobacillus Acidophilus (Bacid -) 1 tab PO DAILY [facility] Last Admin: 07/31/18 10:42 Dose: 1 tab Warfarin Sodium (Coumadin -) 5 mg PO DAILY@1800 [facility] Last Admin: 07/30/18 18:33 Dose: 5 mg - Objective Vital Signs: Vital Signs Temperature 97.9 F 07/31/18 06:00 Pulse Rate 76 07/31/18 06:00 Respiratory Rate 18 07/31/18 06:00 Blood Pressure 111/72 07/31/18 06:00 O2 Sat by Pulse Oximetry (%) 97 07/30/18 21:00 Constitutional: Yes: No Distress, Calm Cardiovascular: Yes: Regular Rate and Rhythm Respiratory: Yes: Regular, CTA Bilaterally Gastrointestinal: Yes: Normal Bowel Sounds, Soft Musculoskeletal: Yes: WNL Extremities: Yes: WNL Neurological: Yes: Alert, Oriented Psychiatric: Yes: Alert, Oriented Labs: CBC, BMP 07/31/18 06:00 07/31/18 06:00 INR, PTT INR 2.34 (0.83-1.09) H 07/31/18 06:00 Assessment/Plan Problem List - Problems (1) CAP (community acquired pneumonia) Code(s): J18.9 - PNEUMONIA, UNSPECIFIED ORGANISM Qualifiers: Laterality: right Lung location: middle lobe of lung Qualified Code(s): J18.1 - Lobar pneumonia, unspecified organism (2) UTI (urinary tract infection) Code(s): N39.0 - URINARY TRACT INFECTION, SITE NOT SPECIFIED Qualifiers: Urinary tract infection type: acute cystitis Hematuria presence: with hematuria Qualified Code(s): N30.01 - Acute cystitis with hematuria (3) A-fib Code(s): I48.91 - UNSPECIFIED ATRIAL FIBRILLATION Qualifiers: Atrial fibrillation type: chronic Qualified Code(s): I48.2 - Chronic atrial fibrillation (4) Abnormal liver enzymes Code(s): R74.8 - ABNORMAL LEVELS OF OTHER SERUM ENZYMES (5) History of DVT (deep vein thrombosis) Code(s): Z86.718 - PERSONAL HISTORY OF OTHER VENOUS THROMBOSIS AND EMBOLISM (6) Protein S deficiency Code(s): D68.59 - OTHER PRIMARY THROMBOPHILIA (7) Pancreatitis Code(s): K85.90 - ACUTE PANCREATITIS WITHOUT NECROSIS OR INFECTION, UNSP Qualifiers: Chronicity: acute Pancreatitis type: biliary Acute pancreatitis complication: no infection or necrosis Qualified Code(s): K85.10 - Biliary acute pancreatitis without necrosis or infection plan continue abx as planned will see if she tolerates the abx rest ct current mgmt incentive richie
[2018-07-31] MEDS ORDERED: ALBUTEROL SO4 2.5/IPRATROPIUM 0.5 INH SOL 3 ML VIAL.NEB. NEB PRN (13:47)
--- NOTE | 2018-07-31 14:09 | PN ---
Progress Note (short form) - Note Progress Note: PULMONARY Some chest tightness and congestion. +nonproductive cough. No fevers or chills. Vital Signs Period Temp Pulse Resp BP Sys/Fall Pulse Ox Last 24 Hr 97.9 F-98.2 F 76-83 18-18 105-128/63-72 97 Gen: NAD at rest Heart: RRR Lung: decreased breath sounds at the bases Abd: soft, nontender Ext: no edema CBC, BMP 07/31/18 06:00 07/31/18 06:00 Active Medications Acetaminophen (Tylenol Oral Solution -) 650 mg PO Q6H PRN PRN Reason: FEVER Albuterol/Ipratropium (Duoneb -) 1 amp NEB Q4H PRN PRN Reason: SHORTNESS OF BREATH Alprazolam (Xanax -) 0.5 mg PO ONCE PRN PRN Reason: ANXIETY Last Admin: 07/28/18 10:43 Dose: 0.5 mg Diltiazem HCl (Cardizem -) 30 mg PO [facility] Last Admin: 07/30/18 21:30 Dose: 30 mg Diphenhydramine HCl (Benadryl Injection -) 25 mg IVPUSH Q6H PRN PRN Reason: ITCHING Last Admin: 07/31/18 10:42 Dose: 25 mg Diphenhydramine HCl (Benadryl Oral Solution -) 25 mg PO [facility] Last Admin: 07/30/18 21:30 Dose: 25 mg Doxycycline Monohydrate (Vibramycin Oral Suspension -) 100 mg PO BID@1000,1800 [facility] Dextrose/Sodium Chloride (D5-1/2ns -) 1,000 mls @ 42 mls/hr IV ASDIR [facility] Last Admin: 07/30/18 21:30 Dose: 42 mls/hr Lactobacillus Acidophilus (Bacid -) 1 tab PO DAILY [facility] Last Admin: 07/31/18 10:42 Dose: 1 tab Warfarin Sodium (Coumadin -) 5 mg PO DAILY@1800 [facility] Last Admin: 07/30/18 18:33 Dose: 5 mg A/P Pneumonia Protein S Deficiency Atrial fibrillation h/o DVT MVP Elevated LFTs - continue antibiotics - start inhaled bronchodilators as needed - O2 to keep SpO2>90% - rate controlled - continue anticoagulation - outpt f/u of chest imaging to ensure resolution of infiltrate
[2018-07-31] MEDS ORDERED: ACETAMINOPHEN 325 MG TABLET (FP) PO PRN (14:10)
[2018-07-31] MEDS ORDERED: ACETAMINOPHEN 325 MG TABLET (FP) ONE (14:12)
[2018-07-31] MEDS: DEXTROSE 5%-0.45% SALINE 1,000 ML IV SCH ×2 (14:27→18:55)
[2018-07-31] MEDS: WARFARIN NA 5 MG TABLET (UD) PO SCH ×2 (18:17→18:55)
[2018-07-31] MEDS: DOXYCYCLINE MONOHYDRATE 25 MG/5 ML SUSPENSION PO SCH (18:23)
[2018-07-31] MEDS: dilTIAZem HCL 30 MG TABLET (FP) PO SCH (21:35)
[2018-07-31] MEDS: diphenhydrAMINE HCL 12.5 MG/5 ML UNIT-DOSE CUPS PO SCH (21:35)
[2018-08-01 07:39] LABS: INR 2.35 (0.83-1.09); PROTHROMBIN TIME (PATIENT) 26.6 SEC (9.7-13.0)
[2018-08-01] MEDS ORDERED: PT OWN MED DRAWER 7, Y5N ONE ×2 (09:40→17:05)
[2018-08-01] MEDS: LACTOBACILLUS ACIDOPHILUS 1 TABLET PO SCH (09:41)
[2018-08-01] MEDS: DOXYCYCLINE MONOHYDRATE 25 MG/5 ML SUSPENSION PO SCH ×2 (09:41→17:08)
--- NOTE | 2018-08-01 09:41 | PN ---
Progress Note (short form) - Note Progress Note: Dr. Carpio to document today. Tolerated doxycycline RX with some pruritis. Probable discharge today.
--- NOTE | 2018-08-01 11:55 | PN ---
Progress Note, Physician History of Present Illness: stable says she feels a bit drugged up tolerated po some itching - Current Medication List Current Medications: Active Medications Acetaminophen (Tylenol -) 650 mg PO Q4H PRN PRN Reason: PAIN OR FEVER Last Admin: 07/31/18 14:24 Dose: 650 mg Albuterol/Ipratropium (Duoneb -) 1 amp NEB Q4H PRN PRN Reason: SHORTNESS OF BREATH Alprazolam (Xanax -) 0.5 mg PO ONCE PRN PRN Reason: ANXIETY Last Admin: 07/28/18 10:43 Dose: 0.5 mg Diltiazem HCl (Cardizem -) 30 mg PO [facility] Last Admin: 07/31/18 21:35 Dose: 30 mg Diphenhydramine HCl (Benadryl Injection -) 25 mg IVPUSH Q6H PRN PRN Reason: ITCHING Last Admin: 08/01/18 09:49 Dose: 25 mg Diphenhydramine HCl (Benadryl Oral Solution -) 25 mg PO [facility] Last Admin: 07/31/18 21:35 Dose: 25 mg Doxycycline Monohydrate (Vibramycin Oral Suspension -) 100 mg PO BID@1000,1800 [facility] Last Admin: 08/01/18 09:41 Dose: 100 mg Dextrose/Sodium Chloride (D5-1/2ns -) 1,000 mls @ 42 mls/hr IV ASDIR [facility] Last Admin: 07/31/18 18:55 Dose: 42 mls/hr Lactobacillus Acidophilus (Bacid -) 1 tab PO DAILY [facility] Last Admin: 08/01/18 09:41 Dose: 1 tab Warfarin Sodium (Coumadin -) 5 mg PO DAILY@1800 [facility] Last Admin: 07/31/18 18:55 Dose: 5 mg - Objective Vital Signs: Vital Signs Temperature 98.7 F 08/01/18 05:35 Pulse Rate 80 08/01/18 05:35 Respiratory Rate 20 08/01/18 09:00 Blood Pressure 110/63 08/01/18 05:35 O2 Sat by Pulse Oximetry (%) 97 08/01/18 09:00 Constitutional: Yes: No Distress, Calm Cardiovascular: Yes: Regular Rate and Rhythm Respiratory: Yes: Regular, CTA Bilaterally Gastrointestinal: Yes: Normal Bowel Sounds, Soft Musculoskeletal: Yes: WNL Extremities: Yes: WNL Neurological: Yes: Alert, Oriented Psychiatric: Yes: Alert, Oriented Labs: CBC, BMP 07/31/18 06:00 07/31/18 06:00 INR, PTT INR 2.35 (0.83-1.09) H 08/01/18 06:00 Assessment/Plan Problem List - Problems (1) CAP (community acquired pneumonia) Code(s): J18.9 - PNEUMONIA, UNSPECIFIED ORGANISM Qualifiers: Laterality: right Lung location: middle lobe of lung Qualified Code(s): J18.1 - Lobar pneumonia, unspecified organism (2) UTI (urinary tract infection) Code(s): N39.0 - URINARY TRACT INFECTION, SITE NOT SPECIFIED Qualifiers: Urinary tract infection type: acute cystitis Hematuria presence: with hematuria Qualified Code(s): N30.01 - Acute cystitis with hematuria (3) A-fib Code(s): I48.91 - UNSPECIFIED ATRIAL FIBRILLATION Qualifiers: Atrial fibrillation type: chronic Qualified Code(s): I48.2 - Chronic atrial fibrillation (4) Abnormal liver enzymes Code(s): R74.8 - ABNORMAL LEVELS OF OTHER SERUM ENZYMES (5) History of DVT (deep vein thrombosis) Code(s): Z86.718 - PERSONAL HISTORY OF OTHER VENOUS THROMBOSIS AND EMBOLISM (6) Protein S deficiency Code(s): D68.59 - OTHER PRIMARY THROMBOPHILIA (7) Pancreatitis Code(s): K85.90 - ACUTE PANCREATITIS WITHOUT NECROSIS OR INFECTION, UNSP Qualifiers: Chronicity: acute Pancreatitis type: biliary Acute pancreatitis complication: no infection or necrosis Qualified Code(s): K85.10 - Biliary acute pancreatitis without necrosis or infection plan continue abx as planned will see if she tolerates the abx rest ct current mgmt incentive richie should get once week of abx course
--- NOTE | 2018-08-01 14:15 | DS ---
Physical Examination Vital Signs: Vital Signs Temperature 37.1 C 08/01/18 05:35 Pulse Rate 80 08/01/18 05:35 Respiratory Rate 20 08/01/18 09:00 Blood Pressure 110/63 08/01/18 05:35 O2 Sat by Pulse Oximetry (%) 97 08/01/18 09:00 Constitutional: Yes: Well Nourished, No Distress, Calm Cardiovascular: Yes: Regular Rate and Rhythm. No: Gallop, Murmur, Rub Respiratory: Yes: Regular, CTA Bilaterally. No: Rales, Rhonchi, Wheezes Gastrointestinal: Yes: Normal Bowel Sounds, Soft. No: Distention, Tenderness Extremities: Yes: WNL Edema: No Labs: CBC, BMP 07/31/18 06:00 07/31/18 06:00 Discharge Summary Reason For Visit: COMMUNITY ACQUIRED PNEUMONIA Current Active Problems A-fib (Acute) Abnormal liver enzymes (Acute) CAP (community acquired pneumonia) (Acute) Chills with fever (Acute) Colon adenoma (Acute) Diversion colitis (Acute) Diverticulosis of both small and large intestine without perforation or abscess without bleeding (Acute) Family history of colon cancer (Acute) GERD (gastroesophageal reflux disease) (Acute) Head ache (Acute) History of DVT (deep vein thrombosis) (Acute) Ileostomy present (Acute) Nausea (Acute) Nausea and vomiting (Acute) Pancreatitis (Acute) Peptic ulcer disease (Acute) Protein S deficiency (Acute) Protein S deficiency (Acute) Stricture intestinal (Acute) UTI (urinary tract infection) (Acute) Hospital Course: (1) CAP (community acquired pneumonia) Code(s): J18.9 - PNEUMONIA, UNSPECIFIED ORGANISM Qualifiers: Laterality: right Lung location: middle lobe of lung Qualified Code(s): J18.1 - Lobar pneumonia, unspecified organism (2) UTI (urinary tract infection) Code(s): N39.0 - URINARY TRACT INFECTION, SITE NOT SPECIFIED Qualifiers: Urinary tract infection type: acute cystitis Hematuria presence: with hematuria Qualified Code(s): N30.01 - Acute cystitis with hematuria (3) A-fib Code(s): I48.91 - UNSPECIFIED ATRIAL FIBRILLATION Qualifiers: Atrial fibrillation type: chronic Qualified Code(s): I48.2 - Chronic atrial fibrillation (4) Abnormal liver enzymes Code(s): R74.8 - ABNORMAL LEVELS OF OTHER SERUM ENZYMES (5) History of DVT (deep vein thrombosis) Code(s): Z86.718 - PERSONAL HISTORY OF OTHER VENOUS THROMBOSIS AND EMBOLISM (6) Protein S deficiency Code(s): D68.59 - OTHER PRIMARY THROMBOPHILIA (7) Pancreatitis Code(s): K85.90 - ACUTE PANCREATITIS WITHOUT NECROSIS OR INFECTION, UNSP Qualifiers: Chronicity: acute Pancreatitis type: biliary Acute pancreatitis complication: no infection or necrosis Qualified Code(s): K85.10 - Biliary acute pancreatitis without necrosis or infection Ms Suarez is a very pleasant 73 year old female who came in with CAP and UTI. She was admitted to the hospital. She believes she has multiple allergies to antibiotics (and all medications in general) so her antibiotic treatment was complicated. Because of this ID was consulted. Originally patient was started on meropenem but she felt that she had an allergic reaction to this so it was stopped. She was transitioned to rocephin and zithromax but patient outright refused zithromax so she was continued solely on rocephin. She was able to tolerate this as long as she received IV benadryl prior to the rocephin. She was given 7 days and then after much discussion agreed to transitioning to oral doxycycline. She was observed receiving 3 doses of doxycycline and tolerate it. She did say she was starting to itch on the doxycycline, even with the benadryl , but there was no rash and patient appeared comfortable. Because of this she is safe for discharge home to finish her course. Patient was reassured that she will be safe on oral doxycycline but expressed that she should return to the hospital if has tongue/throat swelling, difficulty swallowing, or difficulty breathing. 41 minutes spent in preparation of this discharge Condition: Stable - Instructions Diet, Activity, Other Instructions: resume previous diet and activity Referrals: Rasta Kebede MD [Primary Care Provider] - Disposition: HOME - Home Medications Comprehensive Discharge Medication List: Ambulatory Orders Acetaminophen [Tylenol .Regular Strength -] 650 mg PO Q6H PRN #0 tablet Diltiazem [Cardizem -] 30 mg PO HS #0 tablet 01/08/14 Warfarin Na [Coumadin -] 5 mg PO ASDIR 10/18/14 Diphenhydramine HCl [Benadryl Capsule -] 25 mg PO HS 09/23/17 Diphenhydramine HCl [Benadryl -] 25 mg PO Q6H PRN #28 capsule 08/01/18 Doxycycline Hyclate 100 mg PO BID #10 tablet 08/01/18
[2018-08-01 15:20] VITALS: BP 108/63; PULSE 78; TEMP 98.5
[2018-08-01] MEDS: WARFARIN NA 5 MG TABLET (UD) PO SCH (17:06)
== END 2018-08-01 18:31 | disposition home or self-care (01) | DRG 194 ==
LOC: JER 13:07 → JERBED 18:28 → J4S 23:41 → OBSVTOIN 07-28 10:34 → J5S 07-30 18:40
PROVIDERS: ADMIT Internal Medicine; ATTEND Internal Medicine
DX: J18.1 Lobar pneumonia, unspecified organism (principal); N39.0 Urinary tract infection, site not specified; D68.59 Other primary thrombophilia; R11.2 Nausea with vomiting, unspecified; I25.10 Atherosclerotic heart disease of native coronary artery without angina pectoris; K21.9 Gastro-esophageal reflux disease without esophagitis; I48.2 Chronic atrial fibrillation; R74.8 Abnormal levels of other serum enzymes; Z86.718 Personal history of other venous thrombosis and embolism
CPT/HCPCS: 36415; 71045-TC-FY; 71046-TC-FY; 71250-TC; 74181-TC; 76705-TC; 80048; 80053; 80076; 81003; 81015; 82150; 83605; 83690; 83735; 84100; 85025; 85610; 86480; 87040; 87086; 87186; 87899; 93005; 93010; 97116-GP; 97161-GP; 99283-25; G0378; J0131; J7030

== ENCOUNTER 2020-06-22 05:01 | Day surgery (SDC) | payer OTHER, BC ==
[2020-06-21 17:38] VITALS: BMI 27.1
[2020-06-22] MEDS ORDERED: ACETAMINOPHEN 1000 MG/100 ML VIAL (NON FORMULARY) IVPB ONE (07:41)
[2020-06-22] MEDS ORDERED: DEXTROSE 5%-0.45% SALINE 1,000 ML IV SCH (07:45)
[2020-06-22] MEDS ORDERED: IBUPROFEN 800 MG/8 ML IJ IVPB SCH (07:45)
--- NOTE | 2020-06-22 07:47 | HP ---
History & Physical Update - History History: No Change - Physical Physical: No Change - Assessment Assessment: No Change - Plan Plan: No Change
[2020-06-22] MEDS ORDERED: PROPOFOL 20 ML ONE (07:53)
[2020-06-22] MEDS ORDERED: SUCCINYLCHOLINE CHLORIDE 200 MG/10 ML SYRINGE ONE (07:53)
[2020-06-22] MEDS ORDERED: MIDAZOLAM HCL 2 MG/2 ML SINGLE DOSE VIAL ONE (07:54)
[2020-06-22] MEDS ORDERED: CEFTRIAXONE 1 GM/50 ML PREMIX IVPB ONE (08:20)
[2020-06-22] MEDS ORDERED: ACETAMINOPHEN INJECTION 100 ML IVPB ONE (09:09)
[2020-06-22 12:11] VITALS: BP 112/63; PULSE 68; TEMP 97.7
--- NOTE | 2020-06-23 17:04 | OP ---
DATE OF OPERATION: 06/22/2020 PREOPERATIVE DIAGNOSIS: Bilateral kidney stones. POSTOPERATIVE DIAGNOSIS: Bilateral kidney stones. PROCEDURE: Bilateral ureteroscopy, laser lithotripsy, and bilateral ureteral stent placements. SURGEON: Rasta Serrano MD. SPECIMENS: No specimens. DRAINS: 22 x 6 Double J ureteral stents bilaterally. ESTIMATED BLOOD LOSS: None. PREOPERATIVE INDICATION: The patient is a 75-year-old female who has bilateral kidney stones with renal colic. She comes to the OR today for laser lithotripsy. OPERATIVE PROCEDURE: Patient was brought to the OR, placed on the table in the supine position, given general anesthesia and IV antibiotics, and placed in the modified lithotomy position. The groin was prepped and draped sterilely. Timeout was performed. Patient was also given Benadryl prior to the antibiotics for history of multiple allergies. Cystoscopy was performed. The bladder itself was unremarkable. The right UO was visualized. A wire was passed up into the right kidney under fluoroscopic guidance followed by a 10-Austrian dual-lumen catheter and a 2nd wire. The catheter was removed, and a flexible ureteroscope was passed over the wire into the right kidney. Two areas of stone clusters were seen in the middle pole and the upper pole. The largest of these stones was 7 mm. The stones were all broken up into small pieces of sand. No other stones were seen in the kidney or along the course of the ureter. Over the wire, a 6 x 22 Double J ureteral stent was left in place with 1 loop in the kidney and 1 loop in the bladder. Then on the left side, a wire was passed up into the left kidney under fluoroscopic guidance, a 10-Austrian dual-lumen catheter was then passed to the left kidney, and a 2nd wire was placed. The catheter was removed, and over one of the wires a flexible ureteroscope was passed into the kidney. The kidney was then examined. There were no stones of large enough size to laser in this kidney. There were some small pieces of dust. The wire was left in place ,and a 6 x 22 Double J ureteral stent was left in place over that. The bladder was emptied. The patient was woken up. RASTA SERRANO M.D. [id number]
== END 2020-06-22 11:45 | disposition home or self-care (01) ==
LOC: JASU-SURG 05:01
PROVIDERS: ATTEND Urology
PROC: 0TC48ZZ Extirpation of Matter from Left Kidney Pelvis, Via Natural or Artificial Opening Endoscopic (ICD-10-PCS; principal; 2020-06-22 08:00)
PROC: 0TC38ZZ Extirpation of Matter from Right Kidney Pelvis, Via Natural or Artificial Opening Endoscopic (ICD-10-PCS; 2020-06-22 08:00)
PROC: 0T788DZ Dilation of Bilateral Ureters with Intraluminal Device, Via Natural or Artificial Opening Endoscopic (ICD-10-PCS; 2020-06-22 08:00)
DX: N20.0 Calculus of kidney (principal)
CPT/HCPCS: 76000-TC-FY; 94760; J0131

== ENCOUNTER 2020-11-07 23:48 | Observation (INO) | payer OTHER, BC ==
[2020-11-08 00:14] VITALS: BMI 26.6
[2020-11-08 01:46] LABS: BASO % 0.9 % (0-2.0); EOS % 1.7 % (0-4.5); HEMATOCRIT 32.3 % (32.4-45.2); HEMOGLOBIN 10.6 GM/dL (10.7-15.3); LYMPH % 21.1 % (8-40); MCH 28.7 pg (25.7-33.7); MCHC 32.7 g/dl (32.0-36.0); MEAN CELL VOLUME 87.8 fl (80-96); MEAN PLT VOLUME 9.4 fl (7.5-11.1); MONO % 7.4 % (3.8-10.2); NEUT % 68.9 % (42.8-82.8); PLATELET COUNT 144 K/MM3 (134-434); RBC 3.68 M/mm3 (3.60-5.2); RDW 14.6 % (11.6-15.6); WHITE BLOOD COUNT 4.2 K/mm3 (4.0-10.0)
[2020-11-08 01:57] LABS: INR 2.38 (0.83-1.09); PROTHROMBIN TIME (PATIENT) 28.6 SEC (9.7-13.0)
[2020-11-08 02:00] LABS: ACTIVATED PTT 41.8 SECONDS (25.2-36.5)
[2020-11-08 02:23] LABS: CALCIUM 8.4 mg/dL (8.5-10.1); POTASSIUM 3.4 mmol/L (3.5-5.1)
[2020-11-08 02:24] LABS: ALBUMIN 3.7 g/dl (3.4-5.0)
[2020-11-08 02:28] LABS: CREATININE 1.4 mg/dL (0.55-1.3)
[2020-11-08 02:31] LABS: BILIRUBIN,TOTAL 0.3 mg/dL (0.2-1); TOT PROT 7.1 g/dl (6.4-8.2)
[2020-11-08 03:15] LABS: EPI CELLS 15 /uL (0-25.1); HYALINE CASTS 1 /uL (0-3.1); URINE APPEARANCE CLEAR; URINE BACTERIA 26 /uL (0-1359); URINE BILIRUBIN NEGATIVE (NEGATIVE); URINE COLOR YELLOW; URINE GLUCOSE (UA) NEGATIVE (NEGATIVE); URINE KETONE NEGATIVE (NEGATIVE); URINE LEUK ESTERASE TRACE (NEGATIVE); URINE NITRITE NEGATIVE (NEGATIVE); URINE PROTEIN NEGATIVE (NEGATIVE); URINE RBC 12 /uL (0-23.9); URINE UROBILINOGEN 0.2 mg/dL (0.2-1.0); URINE WBC 46 /uL (0-25.8)
[2020-11-08] MEDS ORDERED: ACETAMINOPHEN 325 MG TABLET (FP) PO ONE (05:19)
[2020-11-08] MEDS ORDERED: ACETAMINOPHEN 325 MG TABLET (FP) ONE (05:30)
[2020-11-08] MEDS ORDERED: ACETAMINOPHEN 1000 MG/100 ML VIAL (NON FORMULARY) IVPB ONE (05:42)
[2020-11-08] MEDS ORDERED: ACETAMINOPHEN INJECTION 100 ML IVPB ONE (05:46)
[2020-11-08] MEDS ORDERED: ACETAMINOPHEN 1000 MG/100 ML VIAL (NON FORMULARY) IVPB PRN (08:58)
[2020-11-08] MEDS ORDERED: POTASSIUM CHLORIDE ORAL LIQUID 20 MEQ/15 ML PO ONE (09:06)
[2020-11-08] MEDS ORDERED: POTASSIUM CHLORIDE ORAL LIQUID 20 MEQ/15 ML ONE (09:44)
[2020-11-08] MEDS: LACTATED RINGERS SOLUTION 1,000 ML/1,000 ML INFUS.BAG IV SCH (10:03)
[2020-11-08 16:40] LABS: CHLORIDE 110 mmol/L (98-107); POTASSIUM 3.5 mmol/L (3.5-5.1); SODIUM 143 mmol/L (136-145)
[2020-11-08 16:41] LABS: ANION GAP 9 MMOL/L (8-16); CALCIUM 8.7 mg/dL (8.5-10.1); CO2 25 mmol/L (21-32)
[2020-11-08 16:42] LABS: BLOOD UREA NITROGEN 18.3 mg/dL (7-18); GLUCOSE,RANDOM 93 mg/dL (74-106)
[2020-11-08 16:45] LABS: CREATININE 1.3 mg/dL (0.55-1.3)
[2020-11-08] MEDS ORDERED: WARFARIN NA 5 MG TABLET PO SCH (18:00)
[2020-11-08] MEDS ORDERED: WARFARIN NA 5 MG TABLET ONE (19:25)
[2020-11-09 08:20] LABS: HEMATOCRIT 38.2 % (32.4-45.2); HEMOGLOBIN 12.1 GM/dL (10.7-15.3); MCH 27.8 pg (25.7-33.7); MCHC 31.7 g/dl (32.0-36.0); MEAN CELL VOLUME 87.7 fl (80-96); MEAN PLT VOLUME 9.7 fl (7.5-11.1); PLATELET COUNT 181 K/MM3 (134-434); RBC 4.36 M/mm3 (3.60-5.2); RDW 14.7 % (11.6-15.6); WHITE BLOOD COUNT 4.7 K/mm3 (4.0-10.0)
[2020-11-09 08:38] LABS: POTASSIUM 3.3 mmol/L (3.5-5.1)
[2020-11-09 08:39] LABS: CALCIUM 8.8 mg/dL (8.5-10.1)
[2020-11-09 08:41] LABS: BLOOD UREA NITROGEN 15.3 mg/dL (7-18); MAGNESIUM 2.1 mg/dL (1.8-2.4)
[2020-11-09 08:43] LABS: CREATININE 1.3 mg/dL (0.55-1.3); PHOSPHOROUS 3.8 mg/dL (2.5-4.9)
[2020-11-09] MEDS: LACTATED RINGERS SOLUTION 1,000 ML/1,000 ML INFUS.BAG IV SCH (09:58)
[2020-11-09] MEDS ORDERED: POTASSIUM CHLORIDE ORAL LIQUID 20 MEQ/15 ML PO ONE (12:20)
[2020-11-09] MEDS ORDERED: POTASSIUM CHLORIDE ORAL LIQUID 20 MEQ/15 ML ONE (12:52)
[2020-11-09 13:00] VITALS: TEMP 98.5
[2020-11-09 15:17] VITALS: BP 140/74; PULSE 72
== END 2020-11-09 14:30 | disposition home or self-care (01) ==
LOC: JER 23:48 → JERBED 11-08 06:05
PROVIDERS: ADMIT Internal Medicine; ATTEND Student in an Organized Health Care Education/Training Program
PROC: 3E033NZ Introduction of Analgesics, Hypnotics, Sedatives into Peripheral Vein, Percutaneous Approach (ICD-10-PCS; principal; 2020-11-08)
PROC: 3E033GC Introduction of Other Therapeutic Substance into Peripheral Vein, Percutaneous Approach (ICD-10-PCS; 2020-11-08)
PROC: 3E0337Z Introduction of Electrolytic and Water Balance Substance into Peripheral Vein, Percutaneous Approach (ICD-10-PCS; 2020-11-08)
DX: I48.91 Unspecified atrial fibrillation (principal); K21.9 Gastro-esophageal reflux disease without esophagitis; K92.9 Disease of digestive system, unspecified; N17.9 Acute kidney failure, unspecified; K57.92 Diverticulitis of intestine, part unspecified, without perforation or abscess without bleeding; D68.59 Other primary thrombophilia; R79.89 Other specified abnormal findings of blood chemistry; H81.09 Meniere's disease, unspecified ear; D47.02 Systemic mastocytosis; M19.90 Unspecified osteoarthritis, unspecified site; F41.9 Anxiety disorder, unspecified; R07.89 Other chest pain; N20.0 Calculus of kidney; K59.00 Constipation, unspecified; Z29.9 Encounter for prophylactic measures, unspecified; Z91.018 Allergy to other foods; Z88.8 Allergy status to other drugs, medicaments and biological substances; G43.909 Migraine, unspecified, not intractable, without status migrainosus
CPT/HCPCS: 36415; 71046-TC-FY; 71250-TC; 72128-TC; 74176-TC; 80048; 80053; 81003; 82550; 83735; 84100; 84443; 84484; 85025; 85027; 85379; 85610; 85730; 86850; 86900; 86901; 87086; 93005; 93010; 96361; 96374; 96375; 99285-25; C9803; G0378; J0131; U0003

== ENCOUNTER 2021-06-08 12:39 | Inpatient (IN) | payer OTHER, BC ==
[2021-06-08] MEDS ORDERED: ACETAMINOPHEN 1000 MG/100 ML VIAL (NON FORMULARY) IVPB ONE (15:45)
[2021-06-08 15:49] LABS: EPI CELLS 9 /uL (0-25.1); HYALINE CASTS 3 /uL (0-3.1); URINE APPEARANCE CLOUDY; URINE BACTERIA 22 /uL (0-1359); URINE BILIRUBIN NEGATIVE (NEGATIVE); URINE COLOR YELLOW; URINE GLUCOSE (UA) NEGATIVE (NEGATIVE); URINE KETONE NEGATIVE (NEGATIVE); URINE LEUK ESTERASE 1+ (NEGATIVE); URINE NITRITE NEGATIVE (NEGATIVE); URINE PROTEIN 1+ (NEGATIVE); URINE RBC 54 /uL (0-23.9); URINE UROBILINOGEN 0.2 mg/dL (0.2-1.0); URINE WBC 33 /uL (0-25.8)
[2021-06-08] MEDS ORDERED: morphine CARPU-JECT 4 MG/1 ML DISP.SYRIN IVPUSH ONE ×2 (16:53→20:35)
[2021-06-08] MEDS ORDERED: ACETAMINOPHEN INJECTION 100 ML IVPB ONE (17:27)
[2021-06-08 17:53] LABS: BASO % 0.4 % (0-2.0); EOS % 0.1 % (0-4.5); HEMATOCRIT 38.2 % (32.4-45.2); HEMOGLOBIN 12.6 GM/dL (10.7-15.3); LYMPH % 10.8 % (8-40); MCH 28.5 pg (25.7-33.7); MCHC 33.1 g/dl (32.0-36.0); MEAN PLT VOLUME 8.9 fl (7.5-11.1); MONO % 7.9 % (3.8-10.2); NEUT % 80.8 % (42.8-82.8); PLATELET COUNT 124 10^3/uL (134-434); RBC 4.44 M/mm3 (3.60-5.2); RDW 15.2 % (11.6-15.6); WHITE BLOOD COUNT 6.9 K/mm3 (4.0-10.0)
[2021-06-08 18:04] LABS: INR 2.23 (0.83-1.09); PROTHROMBIN TIME (PATIENT) 26.4 SEC (9.7-13.0)
[2021-06-08 18:06] LABS: ACTIVATED PTT 37.5 SECONDS (25.2-36.5)
[2021-06-08 18:16] LABS: CHLORIDE 109 mmol/L (98-107); SODIUM 141 mmol/L (136-145)
[2021-06-08 18:19] LABS: ALBUMIN 3.9 g/dl (3.4-5.0); ANION GAP 8 MMOL/L (8-16); BLOOD UREA NITROGEN 35.5 mg/dL (7-18); CALCIUM 8.9 mg/dL (8.5-10.1); CO2 24 mmol/L (21-32); GLUCOSE,RANDOM 94 mg/dL (74-106); LIPASE 266 U/L (73-393); MAGNESIUM 2.2 mg/dL (1.8-2.4)
[2021-06-08 18:22] LABS: CREATININE 2.5 mg/dL (0.55-1.3); SGOT/AST 36 U/L (15-37); SGPT/ALT 29 U/L (13-61)
[2021-06-08 18:23] LABS: BILIRUBIN,TOTAL 0.7 mg/dL (0.2-1)
[2021-06-08 18:24] LABS: TOT PROT 7.5 g/dl (6.4-8.2)
[2021-06-08 18:25] LABS: ALK PHOS 102 U/L (45-117)
[2021-06-08] MEDS ORDERED: SODIUM CHLORIDE 0.9% 500 ML INFUS.BAG IV ONE (18:28)
[2021-06-08] MEDS ORDERED: ONDANSETRON 4 MG TABLET PO ONE (20:37)
[2021-06-08] MEDS ORDERED: morphine SULFATE 4 MG/ML VIAL ONE (20:42)
[2021-06-08] MEDS ORDERED: ONDANSETRON 4 MG/2 ML VIAL ONE (20:42)
[2021-06-08] MEDS ORDERED: diphenhydrAMINE HCL 25 MG CAPSULE (FP) PO ONE (21:15)
[2021-06-09] MEDS ORDERED: ACETAMINOPHEN 325 MG TABLET (FP) PO PRN (00:21)
[2021-06-09] MEDS ORDERED: morphine CARPU-JECT 2 MG/1 ML DISP.SYRIN IVPUSH PRN (00:21)
[2021-06-09] MEDS: SODIUM CHLORIDE 1,000 ML IV SCH ×2 (00:55→11:11)
[2021-06-09] MEDS: ACETAMINOPHEN 1000 MG/100 ML VIAL (NON FORMULARY) IVPB PRN ×2 (02:48→11:12)
[2021-06-09 03:09] VITALS: BMI 26.8
[2021-06-09] MEDS ORDERED: dilTIAZem HCL 30 MG TABLET PO PRN (03:39)
[2021-06-09] MEDS ORDERED: diphenhydrAMINE HCL 25 MG CAPSULE (FP) PO PRN (03:58)
[2021-06-09] MEDS ORDERED: TAMSULOSIN HCL 0.4 MG CAP PO SCH (08:30)
[2021-06-09] MEDS ORDERED: dilTIAZem HCL 30 MG TABLET PO SCH (10:00)
[2021-06-09] MEDS ORDERED: PT OWN MED DRAWER 7, Y5N ONE (11:09)
[2021-06-09 12:23] LABS: BASO % 0.4 % (0-2.0); EOS % 0.8 % (0-4.5); HEMATOCRIT 38.5 % (32.4-45.2); HEMOGLOBIN 12.1 GM/dL (10.7-15.3); LYMPH % 15.9 % (8-40); MCHC 31.5 g/dl (32.0-36.0); MEAN CELL VOLUME 88.6 fl (80-96); MEAN PLT VOLUME 9.1 fl (7.5-11.1); MONO % 7.8 % (3.8-10.2); NEUT % 75.1 % (42.8-82.8); PLATELET COUNT 123 10^3/uL (134-434); RBC 4.34 M/mm3 (3.60-5.2); RDW 15.9 % (11.6-15.6); WHITE BLOOD COUNT 5.8 K/mm3 (4.0-10.0)
[2021-06-09 12:26] LABS: INR 2.7 (0.83-1.09); PROTHROMBIN TIME (PATIENT) 32.3 SEC (9.7-13.0)
[2021-06-09 12:50] LABS: ALBUMIN 3.5 g/dl (3.4-5.0); CALCIUM 8.1 mg/dL (8.5-10.1)
[2021-06-09 12:51] LABS: BLOOD UREA NITROGEN 39.2 mg/dL (7-18); MAGNESIUM 2.3 mg/dL (1.8-2.4)
[2021-06-09 12:54] LABS: CREATININE 2.6 mg/dL (0.55-1.3); PHOSPHOROUS 4.1 mg/dL (2.5-4.9)
[2021-06-09 12:55] LABS: BILIRUBIN,TOTAL 0.8 mg/dL (0.2-1); TOT PROT 6.5 g/dl (6.4-8.2)
[2021-06-09] MEDS ORDERED: LIDOCAINE HCL/PF 2% SDV 5ML VIAL ONE (14:29)
[2021-06-09] MEDS ORDERED: DEXAMETHASONE SOD PHOSPHATE 4 MG/1 ML VIAL ONE ×2 (14:29→15:26)
[2021-06-09] MEDS ORDERED: PROPOFOL 20 ML ONE (14:29)
[2021-06-09] MEDS ORDERED: MIDAZOLAM HCL 2 MG/2 ML SINGLE DOSE VIAL ONE (14:30)
[2021-06-09] MEDS ORDERED: ONDANSETRON 4 MG/2 ML VIAL IVPUSH PRN ×2 (14:53→16:42)
[2021-06-09] MEDS ORDERED: LACTATED RINGERS SOLUTION 1,000 ML IV SCH (15:00)
[2021-06-09] MEDS ORDERED: SODIUM CHLORIDE 0.9% P/F 10 ML VIAL IJ ONE (15:03)
[2021-06-09] MEDS ORDERED: MORPHINE SULFATE 2 MG/ML VIAL IVPUSH PRN (16:42)
[2021-06-09] MEDS ORDERED: ACETAMINOPHEN 1000 MG/100 ML VIAL (NON FORMULARY) IVPB PRN (16:42)
[2021-06-09] MEDS ORDERED: SODIUM CHLORIDE 1,000 ML IV SCH (16:42)
[2021-06-09] MEDS: LACTATED RINGERS SOLUTION 1,000 ML IV SCH (17:15)
[2021-06-09] MEDS ORDERED: WARFARIN NA 5 MG TABLET PO SCH (18:00)
[2021-06-09] MEDS: diphenhydrAMINE HCL 25 MG CAPSULE (FP) PO PRN (21:34)
[2021-06-10] MEDS: LACTATED RINGERS SOLUTION 1,000 ML IV SCH ×3 (05:57→20:50)
[2021-06-10 09:24] LABS: BASO % 0.2 % (0-2.0); HEMATOCRIT 36.9 % (32.4-45.2); HEMOGLOBIN 11.8 GM/dL (10.7-15.3); LYMPH % 12.6 % (8-40); MCH 28.1 pg (25.7-33.7); MEAN PLT VOLUME 9.3 fl (7.5-11.1); MONO % 4.2 % (3.8-10.2); PLATELET COUNT 134 10^3/uL (134-434); RBC 4.19 M/mm3 (3.60-5.2); RDW 15.3 % (11.6-15.6)
[2021-06-10] MEDS ORDERED: ACETAMINOPHEN 325 MG TABLET (FP) PO PRN (09:50)
[2021-06-10 09:58] LABS: ALBUMIN 3.2 g/dl (3.4-5.0); CALCIUM 8.4 mg/dL (8.5-10.1)
[2021-06-10 10:00] LABS: CREATININE 1.9 mg/dL (0.55-1.3); PHOSPHOROUS 3.8 mg/dL (2.5-4.9)
[2021-06-10 10:01] LABS: BILIRUBIN,TOTAL 0.6 mg/dL (0.2-1)
[2021-06-10 10:02] LABS: TOT PROT 6.2 g/dl (6.4-8.2)
[2021-06-10 10:42] LABS: INR 2.65 (0.83-1.09); PROTHROMBIN TIME (PATIENT) 31.2 SEC (9.7-13.0)
[2021-06-10] MEDS: TAMSULOSIN HCL 0.4 MG CAP PO SCH (11:01)
[2021-06-10] MEDS: dilTIAZem HCL 30 MG TABLET PO SCH (11:09)
[2021-06-10] MEDS: diphenhydrAMINE HCL 25 MG CAPSULE (FP) PO PRN (12:59)
[2021-06-10] MEDS ORDERED: WARFARIN NA 7.5 MG TABLET PO SCH (18:00)
[2021-06-10] MEDS ORDERED: PT OWN MED DRAWER 7, Y5N ONE (21:03)
[2021-06-11] MEDS: TAMSULOSIN HCL 0.4 MG CAP PO SCH (08:54)
[2021-06-11] MEDS: dilTIAZem HCL 30 MG TABLET PO SCH (09:58)
[2021-06-11] MEDS: LACTATED RINGERS SOLUTION 1,000 ML IV SCH ×2 (11:35→19:14)
[2021-06-11 15:46] LABS: HEMATOCRIT 31.4 % (32.4-45.2); HEMOGLOBIN 10.4 GM/dL (10.7-15.3); MCH 28.6 pg (25.7-33.7); MCHC 33.1 g/dl (32.0-36.0); MEAN CELL VOLUME 86.6 fl (80-96); MEAN PLT VOLUME 8.6 fl (7.5-11.1); PLATELET COUNT 122 10^3/uL (134-434); RBC 3.63 M/mm3 (3.60-5.2); RDW 15.1 % (11.6-15.6); WHITE BLOOD COUNT 4.8 K/mm3 (4.0-10.0)
[2021-06-11 15:57] LABS: INR 1.65 (0.83-1.09)
[2021-06-12] MEDS ORDERED: LACTATED RINGERS SOLUTION 1,000 ML/1,000 ML INFUS.BAG IV SCH (04:00)
[2021-06-12] MEDS ORDERED: PT OWN MED DRAWER 7, Y5N ONE (05:57)
[2021-06-12 09:23] LABS: HEMATOCRIT 32.3 % (32.4-45.2); HEMOGLOBIN 10.9 GM/dL (10.7-15.3); INR 1.32 (0.83-1.09); MCH 28.7 pg (25.7-33.7); MCHC 33.7 g/dl (32.0-36.0); MEAN CELL VOLUME 85.3 fl (80-96); MEAN PLT VOLUME 8.6 fl (7.5-11.1); PLATELET COUNT 132 10^3/uL (134-434); PROTHROMBIN TIME (PATIENT) 15.8 SEC (9.7-13.0); RBC 3.78 M/mm3 (3.60-5.2); RETICULOCYTES 0.77 % (0.5-1.5); WHITE BLOOD COUNT 4.6 K/mm3 (4.0-10.0)
[2021-06-12 09:58] LABS: CALCIUM 7.9 mg/dL (8.5-10.1)
[2021-06-12 09:59] LABS: BLOOD UREA NITROGEN 27.3 mg/dL (7-18)
[2021-06-12 10:02] LABS: CREATININE 1.7 mg/dL (0.55-1.3)
[2021-06-12] MEDS: dilTIAZem HCL 30 MG TABLET PO SCH (10:34)
[2021-06-12] MEDS: TAMSULOSIN HCL 0.4 MG CAP PO SCH (10:34)
[2021-06-12] MEDS: SODIUM CHLORIDE 1,000 ML IV SCH (18:15)
[2021-06-12] MEDS: diphenhydrAMINE HCL 25 MG CAPSULE (FP) PO PRN (18:49)
[2021-06-13] MEDS ORDERED: PT OWN MED DRAWER 7, Y5N ONE ×2 (05:12→10:28)
[2021-06-13 09:29] LABS: INR 1.17 (0.83-1.09); PROTHROMBIN TIME (PATIENT) 14.3 SEC (9.7-13.0)
[2021-06-13 09:31] LABS: BASO % 0.6 % (0-2.0); HEMATOCRIT 31.6 % (32.4-45.2); HEMOGLOBIN 10.3 GM/dL (10.7-15.3); LYMPH % 26.1 % (8-40); MCH 28.2 pg (25.7-33.7); MCHC 32.4 g/dl (32.0-36.0); MEAN CELL VOLUME 87.1 fl (80-96); MEAN PLT VOLUME 8.9 fl (7.5-11.1); MONO % 7.7 % (3.8-10.2); NEUT % 63.6 % (42.8-82.8); PLATELET COUNT 125 10^3/uL (134-434); RBC 3.63 M/mm3 (3.60-5.2); RDW 15.1 % (11.6-15.6); WHITE BLOOD COUNT 4.2 K/mm3 (4.0-10.0)
[2021-06-13 09:50] LABS: ALBUMIN 3.1 g/dl (3.4-5.0); BLOOD UREA NITROGEN 23.8 mg/dL (7-18); CALCIUM 7.8 mg/dL (8.5-10.1); MAGNESIUM 1.4 mg/dL (1.8-2.4)
[2021-06-13 09:53] LABS: CREATININE 1.4 mg/dL (0.55-1.3)
[2021-06-13 09:54] LABS: PHOSPHOROUS 3.1 mg/dL (2.5-4.9)
[2021-06-13 09:55] LABS: BILIRUBIN,TOTAL 0.7 mg/dL (0.2-1); TOT PROT 5.8 g/dl (6.4-8.2)
[2021-06-13] MEDS: TAMSULOSIN HCL 0.4 MG CAP PO SCH (10:42)
[2021-06-13] MEDS: SODIUM CHLORIDE 1,000 ML IV SCH (10:57)
[2021-06-13] MEDS: dilTIAZem HCL 30 MG TABLET PO SCH (10:57)
[2021-06-13] MEDS ORDERED: MAGNESIUM SULF 50% (8.12 MEQ/2 ML-1 GM VIAL) IVPB ONE ×2 (11:34→17:32)
[2021-06-13] MEDS ORDERED: KCL 10 MEQ IVPB 10 MEQ/100 ML INFUS.BAG IVPB SCH (11:45)
[2021-06-13] MEDS: diphenhydrAMINE HCL 25 MG CAPSULE (FP) PO PRN ×2 (12:26→18:33)
[2021-06-13] MEDS ORDERED: MAGNESIUM OXIDE 400 MG TABLET (FP) PO ONE ×2 (14:09)
[2021-06-13] MEDS: WARFARIN NA 5 MG TABLET PO SCH (21:17)
[2021-06-13] MEDS: KCL 10 MEQ IVPB 10 MEQ/100 ML INFUS.BAG IVPB SCH (22:14)
[2021-06-14] MEDS: KCL 10 MEQ IVPB 10 MEQ/100 ML INFUS.BAG IVPB SCH ×2 (05:50→09:54)
[2021-06-14] MEDS: TAMSULOSIN HCL 0.4 MG CAP PO SCH (08:53)
[2021-06-14 09:25] LABS: BASO % 0.8 % (0-2.0); EOS % 1.5 % (0-4.5); HEMATOCRIT 32.9 % (32.4-45.2); HEMOGLOBIN 10.9 GM/dL (10.7-15.3); LYMPH % 24.7 % (8-40); MCH 28.6 pg (25.7-33.7); MCHC 33.1 g/dl (32.0-36.0); MEAN CELL VOLUME 86.3 fl (80-96); MEAN PLT VOLUME 8.8 fl (7.5-11.1); MONO % 6.4 % (3.8-10.2); NEUT % 66.6 % (42.8-82.8); PLATELET COUNT 130 10^3/uL (134-434); RBC 3.81 M/mm3 (3.60-5.2); RDW 15.3 % (11.6-15.6); WHITE BLOOD COUNT 4.5 K/mm3 (4.0-10.0)
[2021-06-14 09:29] LABS: INR 1.07 (0.83-1.09); PROTHROMBIN TIME (PATIENT) 12.9 SEC (9.7-13.0)
[2021-06-14] MEDS: dilTIAZem HCL 30 MG TABLET PO SCH (09:48)
[2021-06-14 10:16] LABS: BLOOD UREA NITROGEN 18.8 mg/dL (7-18)
[2021-06-14 10:18] LABS: ALBUMIN 3.6 g/dl (3.4-5.0); MAGNESIUM 1.8 mg/dL (1.8-2.4)
[2021-06-14 10:20] LABS: CREATININE 1.3 mg/dL (0.55-1.3)
[2021-06-14 10:21] LABS: BILIRUBIN,TOTAL 0.6 mg/dL (0.2-1); TOT PROT 6.7 g/dl (6.4-8.2)
[2021-06-14] MEDS ORDERED: MAGNESIUM SULF 50% (8.12 MEQ/2 ML-1 GM VIAL) IVPB ONE (10:32)
[2021-06-14] MEDS ORDERED: ENOXAPARIN NA (PORCINE) 60 MG/0.6 ML DISP.SYRIN SQ SCH (10:45)
[2021-06-14] MEDS: diphenhydrAMINE HCL 25 MG CAPSULE (FP) PO PRN (11:24)
[2021-06-14] MEDS: D5-1/2NS+40 MEQ KCL - 40 MEQ/1,000 ML INFUS.BAG IV SCH ×2 (12:16→23:37)
[2021-06-14] MEDS ORDERED: diphenhydrAMINE HCL 25 MG CAPSULE (FP) PO PRN (15:47)
[2021-06-14] MEDS: WARFARIN NA 5 MG TABLET PO SCH (18:57)
[2021-06-15] MEDS: DIPHENHYDRAMINE 12.5 MG/5 ML PO PRN ×3 (01:00→19:01)
[2021-06-15] MEDS ORDERED: PT OWN MED DRAWER 7, Y5N ONE ×2 (08:06→10:30)
[2021-06-15 08:53] LABS: BASO % 0.9 % (0-2.0); EOS % 2.5 % (0-4.5); HEMATOCRIT 29.1 % (32.4-45.2); HEMOGLOBIN 9.4 GM/dL (10.7-15.3); LYMPH % 25.7 % (8-40); MCH 28.3 pg (25.7-33.7); MCHC 32.4 g/dl (32.0-36.0); MEAN CELL VOLUME 87.5 fl (80-96); MEAN PLT VOLUME 9.1 fl (7.5-11.1); MONO % 7.8 % (3.8-10.2); NEUT % 63.1 % (42.8-82.8); PLATELET COUNT 127 10^3/uL (134-434); RBC 3.32 M/mm3 (3.60-5.2); RDW 14.9 % (11.6-15.6); WHITE BLOOD COUNT 3.7 K/mm3 (4.0-10.0)
[2021-06-15 09:04] LABS: INR 1.14 (0.83-1.09)
[2021-06-15 09:25] LABS: BLOOD UREA NITROGEN 18.4 mg/dL (7-18); CALCIUM 7.7 mg/dL (8.5-10.1); MAGNESIUM 1.8 mg/dL (1.8-2.4)
[2021-06-15 09:28] LABS: CREATININE 1.3 mg/dL (0.55-1.3)
[2021-06-15 09:29] LABS: PHOSPHOROUS 2.6 mg/dL (2.5-4.9)
[2021-06-15 09:30] LABS: BILIRUBIN,TOTAL 0.6 mg/dL (0.2-1); TOT PROT 5.6 g/dl (6.4-8.2)
[2021-06-15] MEDS ORDERED: POTASSIUM CHLORIDE ORAL LIQUID 20 MEQ/15 ML PO SCH (10:00)
[2021-06-15] MEDS: TAMSULOSIN HCL 0.4 MG CAP PO SCH (10:32)
[2021-06-15] MEDS: D5-1/2NS+40 MEQ KCL - 40 MEQ/1,000 ML INFUS.BAG IV SCH ×2 (10:34→20:13)
[2021-06-15] MEDS: dilTIAZem HCL 30 MG TABLET PO SCH (12:09)
[2021-06-15] MEDS: WARFARIN NA 7.5 MG TABLET PO SCH (20:13)
[2021-06-16] MEDS: DIPHENHYDRAMINE 12.5 MG/5 ML PO PRN ×3 (03:35→21:13)
[2021-06-16] MEDS: D5-1/2NS+40 MEQ KCL - 40 MEQ/1,000 ML INFUS.BAG IV SCH (06:27)
[2021-06-16 09:30] LABS: BASO % 0.6 % (0-2.0); HEMOGLOBIN 10.2 GM/dL (10.7-15.3); LYMPH % 22.4 % (8-40); MCH 28.4 pg (25.7-33.7); MCHC 31.9 g/dl (32.0-36.0); MEAN PLT VOLUME 8.9 fl (7.5-11.1); MONO % 7.1 % (3.8-10.2); NEUT % 67.9 % (42.8-82.8); PLATELET COUNT 127 10^3/uL (134-434); RBC 3.59 M/mm3 (3.60-5.2); RDW 15.5 % (11.6-15.6); WHITE BLOOD COUNT 3.9 K/mm3 (4.0-10.0)
[2021-06-16 09:58] LABS: INR 1.3 (0.83-1.09); PROTHROMBIN TIME (PATIENT) 15.9 SEC (9.7-13.0)
[2021-06-16 10:05] LABS: CALCIUM 8.2 mg/dL (8.5-10.1)
[2021-06-16 10:06] LABS: ALBUMIN 3.2 g/dl (3.4-5.0); BLOOD UREA NITROGEN 15.5 mg/dL (7-18); MAGNESIUM 1.6 mg/dL (1.8-2.4)
[2021-06-16] MEDS: TAMSULOSIN HCL 0.4 MG CAP PO SCH (10:06)
[2021-06-16 10:09] LABS: CREATININE 1.3 mg/dL (0.55-1.3); PHOSPHOROUS 2.2 mg/dL (2.5-4.9)
[2021-06-16 10:10] LABS: BILIRUBIN,TOTAL 0.3 mg/dL (0.2-1); TOT PROT 6.1 g/dl (6.4-8.2)
[2021-06-16] MEDS: WARFARIN NA 7.5 MG TABLET PO SCH (21:11)
[2021-06-16] MEDS ORDERED: PT OWN MED DRAWER 7, Y5N ONE (21:12)
[2021-06-16] MEDS: dilTIAZem HCL 30 MG TABLET PO SCH (21:13)
[2021-06-17] MEDS: TAMSULOSIN HCL 0.4 MG CAP PO SCH (08:24)
[2021-06-17 09:35] LABS: BASO % 0.8 % (0-2.0); EOS % 1.3 % (0-4.5); HEMATOCRIT 32.8 % (32.4-45.2); HEMOGLOBIN 10.5 GM/dL (10.7-15.3); LYMPH % 20.3 % (8-40); MCH 28.3 pg (25.7-33.7); MCHC 32.1 g/dl (32.0-36.0); MEAN CELL VOLUME 88.2 fl (80-96); MEAN PLT VOLUME 8.7 fl (7.5-11.1); MONO % 7.2 % (3.8-10.2); NEUT % 70.4 % (42.8-82.8); PLATELET COUNT 142 10^3/uL (134-434); RBC 3.71 M/mm3 (3.60-5.2); WHITE BLOOD COUNT 4.1 K/mm3 (4.0-10.0)
[2021-06-17 09:43] LABS: INR 1.6 (0.83-1.09); PROTHROMBIN TIME (PATIENT) 19.1 SEC (9.7-13.0)
[2021-06-17 10:04] LABS: ALBUMIN 3.4 g/dl (3.4-5.0); BLOOD UREA NITROGEN 18.9 mg/dL (7-18); CALCIUM 8.3 mg/dL (8.5-10.1)
[2021-06-17 10:05] LABS: MAGNESIUM 1.5 mg/dL (1.8-2.4)
[2021-06-17 10:06] LABS: CREATININE 1.4 mg/dL (0.55-1.3)
[2021-06-17 10:07] LABS: BILIRUBIN,TOTAL 0.3 mg/dL (0.2-1); PHOSPHOROUS 2.9 mg/dL (2.5-4.9)
[2021-06-17 10:08] LABS: TOT PROT 6.3 g/dl (6.4-8.2)
[2021-06-17] MEDS: DIPHENHYDRAMINE 12.5 MG/5 ML PO PRN (18:46)
[2021-06-17] MEDS: WARFARIN NA 7.5 MG TABLET PO SCH (19:48)
[2021-06-17] MEDS ORDERED: PT OWN MED DRAWER 7, Y5N ONE (20:07)
[2021-06-17] MEDS: dilTIAZem HCL 30 MG TABLET PO SCH (21:00)
[2021-06-18 05:03] VITALS: TEMP 97.8
[2021-06-18 08:38] LABS: INR 1.79 (0.83-1.09); PROTHROMBIN TIME (PATIENT) 21.6 SEC (9.7-13.0)
[2021-06-18 09:04] LABS: CALCIUM 8.4 mg/dL (8.5-10.1)
[2021-06-18 09:05] LABS: BLOOD UREA NITROGEN 24.1 mg/dL (7-18)
[2021-06-18 09:08] LABS: CREATININE 1.5 mg/dL (0.55-1.3)
[2021-06-18] MEDS ORDERED: WARFARIN NA 2.5 MG TABLET PO ONE (09:11)
[2021-06-18] MEDS ORDERED: SODIUM CHLORIDE 1,000 ML IV SCH (10:00)
[2021-06-18] MEDS: TAMSULOSIN HCL 0.4 MG CAP PO SCH (10:04)
[2021-06-18] MEDS: DIPHENHYDRAMINE 12.5 MG/5 ML PO PRN (10:25)
[2021-06-18 16:54] LABS: INR 1.94 (0.83-1.09); PROTHROMBIN TIME (PATIENT) 23.4 SEC (9.7-13.0)
[2021-06-18 17:28] VITALS: BP 105/68; PULSE 72
[2021-06-18] MEDS: WARFARIN NA 7.5 MG TABLET PO SCH (18:21)
== END 2021-06-18 19:30 | disposition home or self-care (01) | DRG 660 ==
LOC: JER 12:39 → JERBED 20:07 → J5S 06-09 02:13
PROVIDERS: ADMIT Hospitalist; ATTEND Internal Medicine
PROC: 0TC68ZZ Extirpation of Matter from Right Ureter, Via Natural or Artificial Opening Endoscopic (ICD-10-PCS; principal; 2021-06-09 15:00)
PROC: 0T768DZ Dilation of Right Ureter with Intraluminal Device, Via Natural or Artificial Opening Endoscopic (ICD-10-PCS; 2021-06-09 15:00)
DX: N13.2 Hydronephrosis with renal and ureteral calculous obstruction (principal); D68.59 Other primary thrombophilia; N17.9 Acute kidney failure, unspecified; D64.9 Anemia, unspecified; R31.9 Hematuria, unspecified; I48.91 Unspecified atrial fibrillation; E83.42 Hypomagnesemia; E87.6 Hypokalemia; K21.9 Gastro-esophageal reflux disease without esophagitis
CPT/HCPCS: 36415; 71046-TC-FY; 74176-TC; 80048; 80053; 81003; 82360; 82550; 83690; 83735; 84100; 84484; 85025; 85027; 85045; 85610; 85730; 86850; 86900; 86901; 87086; 93005; 93010; 94760; 97116-GP; 97161-GP; 99285-25; C9803; J0131; U0003; U0005

== ENCOUNTER → 2022-04-13 | Day surgery (SDC) | payer OTHER, BC ==
[2022-04-09 13:53] VITALS: BMI 24.9
[~2022-04-13] MED LIST: ACETAMINOPHEN 1000 MG/100 ML BAG IVPB ONE; ACETAMINOPHEN INJECTION 100 ML IVPB ONE; DEXTROSE 5%-0.45% SALINE 1,000 ML IV SCH; KETAMINE HCL 200 MG/20 ML VIAL ONE; PROPOFOL 20 ML ONE; SUCCINYLCHOLINE CHLORIDE 200 MG/10 ML SYRINGE ONE
[2022-04-13 07:21] LABS: INR 1.42 (0.83-1.09); PROTHROMBIN TIME (PATIENT) 16.4 SEC (9.7-13.0)
[2022-04-13 10:48] VITALS: TEMP 97.8
[2022-04-13 11:52] VITALS: BP 120/72; PULSE 70
== END | disposition home or self-care (01) ==
LOC: JASU-SURG 04:14
PROVIDERS: ATTEND Urology
PROC: 0T768DZ Dilation of Right Ureter with Intraluminal Device, Via Natural or Artificial Opening Endoscopic (ICD-10-PCS; 2022-04-13)
PROC: 0TC38ZZ Extirpation of Matter from Right Kidney Pelvis, Via Natural or Artificial Opening Endoscopic (ICD-10-PCS; principal; 2022-04-13 08:00)
DX: N20.0 Calculus of kidney (principal)
CPT/HCPCS: 36415; 76000-TC-FY; 85610; 94760

== ENCOUNTER 2024-01-10 13:37 | Inpatient (IN) | payer OTHER, BC ==
[2024-01-10 14:37] VITALS: BMI 25.8
[2024-01-10 15:50] LABS: BASO % 0.9 % (0-2.0); EOS % 0.6 % (0-4.5); HEMATOCRIT 36.5 % (32.4-45.2); HEMOGLOBIN 11.8 GM/dL (10.7-15.3); LYMPH % 16.1 % (8-40); MCHC 32.4 g/dl (32.0-36.0); MEAN CELL VOLUME 89.4 fl (80-96); MEAN PLT VOLUME 9.1 fl (7.5-11.1); MONO % 6.9 % (3.8-10.2); NEUT % 75.5 % (42.8-82.8); PLATELET COUNT 147 10^3/uL (134-434); RBC 4.09 M/mm3 (3.60-5.2); RDW 14.2 % (11.6-15.6)
[2024-01-10 15:52] LABS: INR 0.98 (0.83-1.09); PROTHROMBIN TIME (PATIENT) 11.4 SEC (9.7-13.0)
[2024-01-10 15:54] LABS: EPI CELLS >36 /uL (0-25.1); HYALINE CASTS 0 /uL (0-3.1); PH,URINE 5.5 (5.0-8.0); URINE APPEARANCE CLEAR; URINE BACTERIA 71 /uL (0-1359); URINE BILIRUBIN NEGATIVE (NEGATIVE); URINE COLOR YELLOW; URINE GLUCOSE (UA) NEGATIVE (NEGATIVE); URINE KETONE NEGATIVE (NEGATIVE); URINE LEUK ESTERASE 3+ (NEGATIVE); URINE NITRITE NEGATIVE (NEGATIVE); URINE PROTEIN NEGATIVE (NEGATIVE); URINE RBC 21 /uL (0-23.9); URINE UROBILINOGEN 0.2 mg/dL (0.2-1.0); URINE WBC 147 /uL (0-25.8)
[2024-01-10 15:55] LABS: ACTIVATED PTT 26.7 SECONDS (25.2-36.5)
[2024-01-10 16:06] LABS: POTASSIUM 3.6 mmol/L (3.5-5.1)
[2024-01-10 16:08] LABS: ALBUMIN 3.8 g/dl (3.4-5.0); BLOOD UREA NITROGEN 55.1 mg/dL (7-18); CALCIUM 8.7 mg/dL (8.5-10.1); MAGNESIUM 2.2 mg/dL (1.8-2.4)
[2024-01-10 16:11] LABS: CREATININE 2.6 mg/dL (0.55-1.3)
[2024-01-10 16:13] LABS: BILIRUBIN,TOTAL 0.4 mg/dL (0.2-1); TOT PROT 7.5 g/dl (6.4-8.2)
[2024-01-10] MEDS: SODIUM CHLORIDE 0.9% 500 ML INFUS.BAG IV ONE (18:30)
[2024-01-10] MEDS: WARFARIN NA 5 MG TABLET PO ONE (21:58)
[2024-01-10] MEDS: ACETAMINOPHEN 1000 MG/100 ML BAG IVPB ONE (22:57)
[2024-01-11 07:13] LABS: INR 1.02 (0.83-1.09); PROTHROMBIN TIME (PATIENT) 11.8 SEC (9.7-13.0)
[2024-01-11 07:16] LABS: ACTIVATED PTT 26.2 SECONDS (25.2-36.5)
[2024-01-11 07:25] LABS: BASO % 0.4 % (0-2.0); EOS % 0.2 % (0-4.5); HEMATOCRIT 34.6 % (32.4-45.2); HEMOGLOBIN 11.3 GM/dL (10.7-15.3); LYMPH % 7.6 % (8-40); MCH 29.1 pg (25.7-33.7); MCHC 32.7 g/dl (32.0-36.0); NEUT % 85.8 % (42.8-82.8); PLATELET COUNT 124 10^3/uL (134-434); RBC 3.89 M/mm3 (3.60-5.2); RDW 14.3 % (11.6-15.6); WHITE BLOOD COUNT 7.8 K/mm3 (4.0-10.0)
[2024-01-11 07:38] LABS: MAGNESIUM 1.9 mg/dL (1.8-2.4)
[2024-01-11 07:42] LABS: PHOSPHOROUS 3.9 mg/dL (2.5-4.9)
[2024-01-11] MEDS: SODIUM CHLORIDE 0.45% 1,000 ML IV SCH (14:46)
[2024-01-11] MEDS ORDERED: WARFARIN NA 5 MG TABLET PO SCH (18:00)
[2024-01-11] MEDS: diphenhydrAMINE HCL 12.5 MG/5 ML UNIT-DOSE CUPS PO PRN (21:27)
[2024-01-12 06:56] LABS: BASO % 0.5 % (0-2.0); EOS % 1.7 % (0-4.5); HEMATOCRIT 32.7 % (32.4-45.2); HEMOGLOBIN 10.6 GM/dL (10.7-15.3); LYMPH % 17.5 % (8-40); MCHC 32.5 g/dl (32.0-36.0); MEAN CELL VOLUME 89.3 fl (80-96); MEAN PLT VOLUME 8.5 fl (7.5-11.1); MONO % 7.7 % (3.8-10.2); NEUT % 72.6 % (42.8-82.8); PLATELET COUNT 118 10^3/uL (134-434); RBC 3.66 M/mm3 (3.60-5.2); RDW 14.3 % (11.6-15.6); WHITE BLOOD COUNT 5.3 K/mm3 (4.0-10.0)
[2024-01-12 07:16] LABS: POTASSIUM 3.2 mmol/L (3.5-5.1)
[2024-01-12 07:19] LABS: CALCIUM 8.1 mg/dL (8.5-10.1); MAGNESIUM 1.8 mg/dL (1.8-2.4)
[2024-01-12 07:20] LABS: BLOOD UREA NITROGEN 37.7 mg/dL (7-18)
[2024-01-12 07:22] LABS: CREATININE 2.1 mg/dL (0.55-1.3); PHOSPHOROUS 3.1 mg/dL (2.5-4.9)
[2024-01-12 07:24] LABS: BILIRUBIN,TOTAL 0.6 mg/dL (0.2-1); TOT PROT 6.2 g/dl (6.4-8.2)
[2024-01-12] MEDS: POTASSIUM PHOSPHATE 30 MM in DEXTROSE 5%-WATER - 500 ML IVPB ONE (08:39)
[2024-01-12] MEDS: SODIUM CHLORIDE 1,000 ML IV SCH (10:42)
[2024-01-12] MEDS: POTASSIUM PHOSPHATE 45 MM in DEXTROSE 5%-WATER - 500 ML IVPB ONE (10:42)
[2024-01-12] MEDS: POTASSIUM CHLORIDE ORAL LIQUID 20 MEQ/15 ML PO ONE (10:44)
[2024-01-12] MEDS: ACETAMINOPHEN 1000 MG/100 ML BAG IVPB ONE (17:41)
[2024-01-13 11:49] LABS: POTASSIUM 3.9 mmol/L (3.5-5.1)
[2024-01-13 11:53] LABS: ALBUMIN 3.5 g/dl (3.4-5.0); BLOOD UREA NITROGEN 32.3 mg/dL (7-18); CALCIUM 7.8 mg/dL (8.5-10.1); MAGNESIUM 1.8 mg/dL (1.8-2.4)
[2024-01-13 11:56] LABS: PHOSPHOROUS 4.3 mg/dL (2.5-4.9)
[2024-01-13 11:57] LABS: TOT PROT 6.7 g/dl (6.4-8.2)
[2024-01-13 11:58] LABS: BILIRUBIN,TOTAL 0.4 mg/dL (0.2-1)
[2024-01-13] MEDS: SODIUM CHLORIDE 1,000 ML IV SCH (17:46)
[2024-01-13] MEDS: NITROGLYCERIN 2% OINTMENT - 1GM PACKET TD ONE (18:41)
[2024-01-14 06:51] LABS: HEMATOCRIT 31.1 % (32.4-45.2); HEMOGLOBIN 10.1 GM/dL (10.7-15.3); MCH 29.1 pg (25.7-33.7); MCHC 32.5 g/dl (32.0-36.0); MEAN CELL VOLUME 89.6 fl (80-96); MEAN PLT VOLUME 8.5 fl (7.5-11.1); PLATELET COUNT 125 10^3/uL (134-434); RBC 3.48 M/mm3 (3.60-5.2); RDW 14.1 % (11.6-15.6); WHITE BLOOD COUNT 4.5 K/mm3 (4.0-10.0)
[2024-01-14 07:13] LABS: POTASSIUM 4.1 mmol/L (3.5-5.1)
[2024-01-14 07:21] LABS: BLOOD UREA NITROGEN 28.2 mg/dL (7-18); CALCIUM 7.7 mg/dL (8.5-10.1); MAGNESIUM 1.7 mg/dL (1.8-2.4)
[2024-01-14 07:25] LABS: BILIRUBIN,TOTAL 0.6 mg/dL (0.2-1); TOT PROT 5.8 g/dl (6.4-8.2)
[2024-01-14] MEDS: MAGNESIUM SULF 50% (8.12 MEQ/2 ML-1 GM VIAL) IVPB ONE (08:00)
[2024-01-15 07:19] LABS: HEMATOCRIT 30.9 % (32.4-45.2); HEMOGLOBIN 10.4 GM/dL (10.7-15.3); MCH 29.8 pg (25.7-33.7); MCHC 33.7 g/dl (32.0-36.0); MEAN CELL VOLUME 88.5 fl (80-96); MEAN PLT VOLUME 8.5 fl (7.5-11.1); PLATELET COUNT 112 10^3/uL (134-434); RBC 3.49 M/mm3 (3.60-5.2); RDW 14.6 % (11.6-15.6); WHITE BLOOD COUNT 3.5 K/mm3 (4.0-10.0)
[2024-01-15 07:44] LABS: BLOOD UREA NITROGEN 28.2 mg/dL (7-18)
[2024-01-15 07:47] LABS: PHOSPHOROUS 3.6 mg/dL (2.5-4.9)
[2024-01-15] MEDS: ACETAMINOPHEN 1000 MG/100 ML BAG IVPB ONE (22:48)
[2024-01-16 07:23] LABS: HEMATOCRIT 31.2 % (32.4-45.2); HEMOGLOBIN 10.2 GM/dL (10.7-15.3); MCH 29.1 pg (25.7-33.7); MCHC 32.7 g/dl (32.0-36.0); MEAN PLT VOLUME 8.4 fl (7.5-11.1); PLATELET COUNT 124 10^3/uL (134-434); RDW 14.4 % (11.6-15.6); WHITE BLOOD COUNT 3.5 K/mm3 (4.0-10.0)
[2024-01-16 07:57] LABS: BLOOD UREA NITROGEN 29.9 mg/dL (7-18); CALCIUM 8.3 mg/dL (8.5-10.1)
[2024-01-16 08:00] LABS: CREATININE 2.1 mg/dL (0.55-1.3)
[2024-01-16 08:01] LABS: BILIRUBIN,TOTAL 0.5 mg/dL (0.2-1)
[2024-01-17 07:18] LABS: HEMATOCRIT 31.6 % (32.4-45.2); HEMOGLOBIN 10.3 GM/dL (10.7-15.3); MCHC 32.6 g/dl (32.0-36.0); MEAN CELL VOLUME 89.1 fl (80-96); MEAN PLT VOLUME 8.2 fl (7.5-11.1); PLATELET COUNT 119 10^3/uL (134-434); RBC 3.55 M/mm3 (3.60-5.2); RDW 14.1 % (11.6-15.6)
[2024-01-17 08:15] LABS: POTASSIUM 3.5 mmol/L (3.5-5.1)
[2024-01-17 08:28] LABS: CALCIUM 8.5 mg/dL (8.5-10.1)
[2024-01-17 08:29] LABS: MAGNESIUM 1.8 mg/dL (1.8-2.4)
[2024-01-17 08:30] LABS: BLOOD UREA NITROGEN 32.3 mg/dL (7-18)
[2024-01-17 08:32] LABS: PHOSPHOROUS 3.4 mg/dL (2.5-4.9)
[2024-01-17 08:33] LABS: BILIRUBIN,TOTAL 0.4 mg/dL (0.2-1)
[2024-01-17 08:34] LABS: TOT PROT 6.1 g/dl (6.4-8.2)
[2024-01-17] MEDS ORDERED: MAG HYDROX/AL HYDROX/SIMETH -MYLANTA- ORAL SUSPENSION PO ONE (14:23)
[2024-01-17 15:19] VITALS: BP 112/54; PULSE 73; RESP 16; TEMP 97.8
[2024-01-17] MEDS: MAG HYDROX/AL HYDROX/SIMETH 30 ML UNIT-DOSE CUP PO ONE (15:36)
== END 2024-01-17 17:29 | disposition home or self-care (01) | DRG 392 ==
LOC: JER 13:37 → JERBED 17:08 → J4W 19:43
PROVIDERS: ADMIT Internal Medicine; ATTEND Internal Medicine
PROC: 0DB68ZX Excision of Stomach, Via Natural or Artificial Opening Endoscopic, Diagnostic (ICD-10-PCS; 2024-01-17)
PROC: 0DB98ZX Excision of Duodenum, Via Natural or Artificial Opening Endoscopic, Diagnostic (ICD-10-PCS; 2024-01-17)
PROC: 0DB58ZX Excision of Esophagus, Via Natural or Artificial Opening Endoscopic, Diagnostic (ICD-10-PCS; principal; 2024-01-17 11:20)
DX: K22.4 Dyskinesia of esophagus (principal); N17.9 Acute kidney failure, unspecified; D68.59 Other primary thrombophilia; J98.11 Atelectasis; R07.9 Chest pain, unspecified; I48.0 Paroxysmal atrial fibrillation; K21.9 Gastro-esophageal reflux disease without esophagitis; N18.9 Chronic kidney disease, unspecified; E86.0 Dehydration; K57.90 Diverticulosis of intestine, part unspecified, without perforation or abscess without bleeding; E87.6 Hypokalemia; K29.70 Gastritis, unspecified, without bleeding
CPT/HCPCS: 0241U-QW; 36415; 71045-TC-FY; 71250-TC; 74220-TC-FY; 80048; 80053; 81003; 83735; 84100; 84484; 85025; 85027; 85379; 85610; 85730; 86850; 86900; 86901; 87077; 87086; 87338; 88305-TC; 93005; 93010; 93970-TC; 97116-GP; 97161-GP; 99285-25; J0131

== ENCOUNTER 2024-09-17 13:59 | Observation (INO) | payer OTHER, BC ==
[2024-09-17 15:36] LABS: EOS % 0.7 % (0-4.5); HEMATOCRIT 32.3 % (32.4-45.2); HEMOGLOBIN 10.6 GM/dL (10.7-15.3); LYMPH % 14.1 % (8-40); MCH 29.6 pg (25.7-33.7); MCHC 32.7 g/dl (32.0-36.0); MEAN CELL VOLUME 90.5 fl (80-96); MONO % 5.9 % (3.8-10.2); NEUT % 78.3 % (42.8-82.8); PLATELET COUNT 125 10^3/uL (134-434); RBC 3.57 M/mm3 (3.60-5.2); RDW 15.8 % (11.6-15.6); WHITE BLOOD COUNT 4.7 K/mm3 (4.0-10.0)
[2024-09-17] MEDS: SODIUM CHLORIDE 0.9% 500 ML INFUS.BAG IV ONE ×2 (15:38→17:40)
[2024-09-17 15:39] LABS: EPI CELLS 8 /uL (0-25.1); HYALINE CASTS 0 /uL (0-3.1); PH,URINE 5.5 (5.0-8.0); URINE APPEARANCE CLEAR; URINE BACTERIA 43 /uL (0-1359); URINE BILIRUBIN NEGATIVE (NEGATIVE); URINE COLOR YELLOW; URINE GLUCOSE (UA) NEGATIVE (NEGATIVE); URINE KETONE NEGATIVE (NEGATIVE); URINE LEUK ESTERASE 2+ (NEGATIVE); URINE NITRITE NEGATIVE (NEGATIVE); URINE PROTEIN TRACE (NEGATIVE); URINE RBC 21 /uL (0-23.9); URINE UROBILINOGEN 0.2 mg/dL (0.2-1.0); URINE WBC 150 /uL (0-25.8)
[2024-09-17 15:54] LABS: POTASSIUM 3.9 mmol/L (3.5-5.1)
[2024-09-17 15:57] LABS: CALCIUM 8.8 mg/dL (8.5-10.1)
[2024-09-17 15:58] LABS: ALBUMIN 3.8 g/dl (3.4-5.0); BLOOD UREA NITROGEN 58.2 mg/dL (7-18)
[2024-09-17 16:01] LABS: CREATININE 2.7 mg/dL (0.55-1.3)
[2024-09-17 16:02] LABS: BILIRUBIN,TOTAL 0.3 mg/dL (0.2-1)
[2024-09-17] MEDS: SODIUM CHLORIDE 1,000 ML IV SCH (19:32)
[2024-09-18 01:02] VITALS: BMI 25.3
[2024-09-18 05:27] VITALS: BP 126/54; PULSE 66; TEMP 97.5
[2024-09-18 08:15] LABS: BASO % 0.9 % (0-2.0); EOS % 1.5 % (0-4.5); HEMATOCRIT 31.3 % (32.4-45.2); HEMOGLOBIN 10.3 GM/dL (10.7-15.3); MCH 29.8 pg (25.7-33.7); MCHC 32.9 g/dl (32.0-36.0); MEAN CELL VOLUME 90.8 fl (80-96); MEAN PLT VOLUME 9.1 fl (7.5-11.1); NEUT % 70.6 % (42.8-82.8); PLATELET COUNT 114 10^3/uL (134-434); RBC 3.45 M/mm3 (3.60-5.2); RDW 15.6 % (11.6-15.6); WHITE BLOOD COUNT 3.9 K/mm3 (4.0-10.0)
[2024-09-18 08:30] LABS: POTASSIUM 3.3 mmol/L (3.5-5.1)
[2024-09-18 08:34] LABS: ALBUMIN 3.4 g/dl (3.4-5.0); BLOOD UREA NITROGEN 47.7 mg/dL (7-18)
[2024-09-18 08:37] LABS: CREATININE 2.4 mg/dL (0.55-1.3); PHOSPHOROUS 3.2 mg/dL (2.5-4.9)
[2024-09-18 08:41] LABS: BILIRUBIN,TOTAL 0.5 mg/dL (0.2-1); TOT PROT 6.1 g/dl (6.4-8.2)
[2024-09-18] MEDS ORDERED: POTASSIUM CHLORIDE TABS 20 MEQ TABLET.ER (FP) PO ONE (10:45)
[2024-09-18] MEDS ORDERED: diphenhydrAMINE HCL 25 MG CAPSULE (FP) PO ONE ×2 (10:45→10:48)
[2024-09-18 13:58] VITALS: RESP 16
[2024-09-18] MEDS ORDERED: WARFARIN NA 5 MG TABLET PO SCH (18:00)
[2024-09-19] MEDS ORDERED: WARFARIN NA 7.5 MG TABLET PO SCH (18:00)
== END 2024-09-18 13:58 | disposition home or self-care (01) ==
LOC: JER 13:59 → JERBED 16:07
PROVIDERS: ADMIT Internal Medicine; ATTEND Nurse Practitioner Acute Care
PROC: 3E0337Z Introduction of Electrolytic and Water Balance Substance into Peripheral Vein, Percutaneous Approach (ICD-10-PCS; principal; 2024-09-17)
DX: Z88.8 Allergy status to other drugs, medicaments and biological substances (principal); N39.0 Urinary tract infection, site not specified; N17.9 Acute kidney failure, unspecified; I48.91 Unspecified atrial fibrillation; N18.9 Chronic kidney disease, unspecified; K27.9 Peptic ulcer, site unspecified, unspecified as acute or chronic, without hemorrhage or perforation; K21.9 Gastro-esophageal reflux disease without esophagitis; K57.90 Diverticulosis of intestine, part unspecified, without perforation or abscess without bleeding; G43.909 Migraine, unspecified, not intractable, without status migrainosus; K58.9 Irritable bowel syndrome, unspecified; D68.59 Other primary thrombophilia; D18.09 Hemangioma of other sites; N20.0 Calculus of kidney; Z29.89 Encounter for other specified prophylactic measures
CPT/HCPCS: 36415; 71045-TC-FY; 76775-TC; 76856-TC; 80053; 81003; 83735; 84100; 84300; 85025; 87077; 87086; 93005; 93010; 96360; 99285-25; G0378

== ENCOUNTER 2025-02-05 11:22 | Inpatient (IN) | payer OTHER, BC ==
[2025-02-05 13:53] LABS: BASO % 0.8 % (0-2.0); EOS % 0.4 % (0-4.5); HEMOGLOBIN 11.6 GM/dL (10.7-15.3); LYMPH % 15.4 % (8-40); MCH 28.8 pg (25.7-33.7); MCHC 32.4 g/dl (32.0-36.0); MEAN CELL VOLUME 88.9 fl (80-96); MEAN PLT VOLUME 9.4 fl (7.5-11.1); MONO % 6.4 % (3.8-10.2); PLATELET COUNT 124 10^3/uL (134-434); RBC 4.05 M/mm3 (3.60-5.2); RDW 15.8 % (11.6-15.6); WHITE BLOOD COUNT 4.8 K/mm3 (4.0-10.0)
[2025-02-05 14:04] LABS: EPI CELLS 8 /uL (0-25.1); HYALINE CASTS 0 /uL (0-3.1); URINE APPEARANCE CLOUDY; URINE BACTERIA 723 /uL (0-1359); URINE BILIRUBIN NEGATIVE (NEGATIVE); URINE COLOR YELLOW; URINE GLUCOSE (UA) NEGATIVE (NEGATIVE); URINE KETONE NEGATIVE (NEGATIVE); URINE LEUK ESTERASE 3+ (NEGATIVE); URINE NITRITE NEGATIVE (NEGATIVE); URINE PROTEIN 1+ (NEGATIVE); URINE RBC 148 /uL (0-23.9); URINE UROBILINOGEN 0.2 mg/dL (0.2-1.0); URINE WBC 1577 /uL (0-25.8)
[2025-02-05 14:13] LABS: POTASSIUM 3.9 mmol/L (3.5-5.1)
[2025-02-05 14:15] LABS: CALCIUM 8.3 mg/dL (8.5-10.1)
[2025-02-05 14:16] LABS: ALBUMIN 3.8 g/dl (3.4-5.0); BLOOD UREA NITROGEN 48.9 mg/dL (7-18)
[2025-02-05 14:20] LABS: BILIRUBIN,TOTAL 0.3 mg/dL (0.2-1)
[2025-02-05 14:21] LABS: TOT PROT 7.6 g/dl (6.4-8.2)
[2025-02-05] MEDS ORDERED: AZTREONAM 1 GM VIAL (RESTRICTED TO ID) ONE (14:26)
[2025-02-05 14:33] LABS: CREATININE 2.7 mg/dL (0.55-1.3)
[2025-02-05] MEDS ORDERED: dilTIAZem HCL 30 MG TABLET PO PRN (14:44)
[2025-02-05] MEDS ORDERED: diphenhydrAMINE HCL 25 MG CAPSULE (FP) PO ONE (15:37)
[2025-02-05] MEDS: diphenhydrAMINE HCL 25 MG CAPSULE (FP) PO PRN (15:40)
[2025-02-05] MEDS: AZTREONAM 1 GM in DEXTROSE 5%-WATER - 50 ML IVPB SCH (15:41)
[2025-02-05] MEDS ORDERED: LINEZOLID 600 MG PREMIX BAG 600 MG/300 ML BAG IVPB ONE (15:42)
[2025-02-05] MEDS: SODIUM CHLORIDE 1,000 ML IV SCH (17:00)
[2025-02-05] MEDS: LINEZOLID 600 MG PREMIX BAG 600 MG/300 ML BAG IVPB SCH (17:08)
[2025-02-05 17:54] VITALS: RESP 18
[2025-02-05] MEDS ORDERED: NITROFURANTOIN MACROCRYSTAL 50 MG CAPSULE (FP) PO SCH (18:00)
[2025-02-05] MEDS ORDERED: DIPHENHYDRAMINE HCL 25 MG/10 ML CUP PO PRN (18:39)
[2025-02-05] MEDS: WARFARIN NA 5 MG TABLET PO SCH (19:07)
[2025-02-05] MEDS: diphenhydrAMINE HCL 12.5 MG/5 ML UNIT-DOSE CUPS PO PRN (21:56)
[2025-02-06] MEDS: LINEZOLID 600 MG PREMIX BAG 600 MG/300 ML BAG IVPB SCH (05:12)
[2025-02-06 09:14] LABS: BASO % 0.9 % (0-2.0); EOS % 1.8 % (0-4.5); HEMATOCRIT 32.5 % (32.4-45.2); HEMOGLOBIN 10.5 GM/dL (10.7-15.3); LYMPH % 24.6 % (8-40); MCH 28.9 pg (25.7-33.7); MCHC 32.2 g/dl (32.0-36.0); MEAN CELL VOLUME 89.9 fl (80-96); MONO % 8.9 % (3.8-10.2); NEUT % 63.8 % (42.8-82.8); PLATELET COUNT 114 10^3/uL (134-434); RBC 3.61 M/mm3 (3.60-5.2); RDW 15.7 % (11.6-15.6); WHITE BLOOD COUNT 3.4 K/mm3 (4.0-10.0)
[2025-02-06 10:54] LABS: POTASSIUM 3.6 mmol/L (3.5-5.1)
[2025-02-06] MEDS: SODIUM CHLORIDE 1,000 ML IV SCH (11:02)
[2025-02-06 11:03] LABS: ALBUMIN 3.3 g/dl (3.4-5.0)
[2025-02-06 11:04] LABS: MAGNESIUM 1.9 mg/dL (1.8-2.4)
[2025-02-06 11:06] LABS: CREATININE 2.6 mg/dL (0.55-1.3); PHOSPHOROUS 3.2 mg/dL (2.5-4.9)
[2025-02-06 11:07] LABS: BILIRUBIN,TOTAL 0.6 mg/dL (0.2-1); TOT PROT 6.3 g/dl (6.4-8.2)
[2025-02-06 11:48] LABS: INR 2.34 (0.83-1.09); PROTHROMBIN TIME (PATIENT) 25.7 SEC (9.7-13.0)
[2025-02-06] MEDS: WARFARIN NA 7.5 MG TABLET PO SCH (17:42)
[2025-02-07] MEDS: KCL 10 MEQ IVPB 10 MEQ/100 ML INFUS.BAG IVPB SCH (01:09)
[2025-02-07 08:39] LABS: HEMATOCRIT 32.7 % (32.4-45.2); HEMOGLOBIN 10.5 GM/dL (10.7-15.3); MCH 28.5 pg (25.7-33.7); MEAN CELL VOLUME 88.8 fl (80-96); MEAN PLT VOLUME 8.8 fl (7.5-11.1); PLATELET COUNT 110 10^3/uL (134-434); RBC 3.68 M/mm3 (3.60-5.2); RDW 15.6 % (11.6-15.6); WHITE BLOOD COUNT 3.7 K/mm3 (4.0-10.0)
[2025-02-07 09:00] LABS: POTASSIUM 3.1 mmol/L (3.5-5.1)
[2025-02-07 09:01] LABS: BLOOD UREA NITROGEN 32.4 mg/dL (7-18); CALCIUM 7.8 mg/dL (8.5-10.1)
[2025-02-07 09:05] LABS: CREATININE 2.6 mg/dL (0.55-1.3)
[2025-02-07 12:46] VITALS: BMI 24.1
[2025-02-08 09:12] LABS: POTASSIUM 3.5 mmol/L (3.5-5.1)
[2025-02-08 09:15] LABS: ALBUMIN 2.8 g/dl (3.4-5.0); BLOOD UREA NITROGEN 27.4 mg/dL (7-18); CALCIUM 7.7 mg/dL (8.5-10.1); MAGNESIUM 1.7 mg/dL (1.8-2.4)
[2025-02-08 09:19] LABS: PHOSPHOROUS 2.9 mg/dL (2.5-4.9)
[2025-02-08 09:20] LABS: BILIRUBIN,TOTAL 0.8 mg/dL (0.2-1)
[2025-02-08 09:22] LABS: TOT PROT 5.6 g/dl (6.4-8.2)
[2025-02-08 09:35] LABS: CREATININE 2.7 mg/dL (0.55-1.3)
[2025-02-08 10:29] LABS: INR 2.66 (0.83-1.09); PROTHROMBIN TIME (PATIENT) 29.3 SEC (9.7-13.0)
[2025-02-08] MEDS: MAGNESIUM 2GM/50ML STERILE WATER IVPB IVPB ONE (18:00)
[2025-02-08] MEDS: LINEZOLID 600 MG TABLET (RESTRICTED TO ID) PO SCH (22:51)
[2025-02-09] MEDS: ACETAMINOPHEN 500 MG TABLET (FP) PO PRN (06:19)
[2025-02-09 08:24] LABS: HEMATOCRIT 30.6 % (32.4-45.2); HEMOGLOBIN 9.9 GM/dL (10.7-15.3); MCH 28.5 pg (25.7-33.7); MCHC 32.3 g/dl (32.0-36.0); MEAN CELL VOLUME 88.3 fl (80-96); MEAN PLT VOLUME 8.8 fl (7.5-11.1); PLATELET COUNT 93 10^3/uL (134-434); RBC 3.47 M/mm3 (3.60-5.2); RDW 15.7 % (11.6-15.6); WHITE BLOOD COUNT 3.2 K/mm3 (4.0-10.0)
[2025-02-09 08:27] LABS: POTASSIUM 3.3 mmol/L (3.5-5.1)
[2025-02-09 08:29] LABS: CALCIUM 7.6 mg/dL (8.5-10.1)
[2025-02-09 08:30] LABS: BLOOD UREA NITROGEN 27.7 mg/dL (7-18)
[2025-02-09 08:33] LABS: CREATININE 2.7 mg/dL (0.55-1.3)
[2025-02-09] MEDS ORDERED: diphenhydrAMINE HCL 12.5 MG/5 ML UNIT-DOSE CUPS PO SCH (10:48)
[2025-02-09] MEDS ORDERED: diphenhydrAMINE HCL 12.5 MG/5 ML UNIT-DOSE CUPS PO PRN ×2 (10:49→21:30)
[2025-02-09] MEDS: diphenhydrAMINE HCL 12.5 MG/5 ML UNIT-DOSE CUPS PO ONE (12:42)
[2025-02-09] MEDS: POTASSIUM CHLORIDE ORAL LIQUID 20 MEQ/15 ML PO ONE (13:20)
[2025-02-09] MEDS ORDERED: DOXYCYCLINE HYCLATE 100 MG CAPSULE PO ONE ×2 (16:30→18:30)
[2025-02-09] MEDS: BENADRYL PO SCH ×2 (18:21→21:00)
[2025-02-09] MEDS: DOXYCYCLINE MONOHYDRATE 25 MG/5 ML SUSPENSION PO ONE (19:06)
[2025-02-10 02:59] VITALS: BP 106/51; PULSE 79; TEMP 97.9
[2025-02-10 09:13] LABS: HEMATOCRIT 32.5 % (32.4-45.2); HEMOGLOBIN 10.3 GM/dL (10.7-15.3); MCH 28.5 pg (25.7-33.7); MCHC 31.6 g/dl (32.0-36.0); MEAN CELL VOLUME 90.1 fl (80-96); MEAN PLT VOLUME 8.6 fl (7.5-11.1); PLATELET COUNT 96 10^3/uL (134-434); RDW 15.5 % (11.6-15.6); WHITE BLOOD COUNT 3.9 K/mm3 (4.0-10.0)
[2025-02-10 09:42] LABS: POTASSIUM 3.6 mmol/L (3.5-5.1)
[2025-02-10 09:46] LABS: BLOOD UREA NITROGEN 29.8 mg/dL (7-18); CALCIUM 7.8 mg/dL (8.5-10.1); MAGNESIUM 1.9 mg/dL (1.8-2.4)
[2025-02-10 09:50] LABS: CREATININE 2.7 mg/dL (0.55-1.3); PHOSPHOROUS 2.9 mg/dL (2.5-4.9)
[2025-02-10] MEDS: DOXYCYCLINE MONOHYDRATE 25 MG/5 ML SUSPENSION PO ONE (10:18)
== END 2025-02-10 15:49 | disposition home or self-care (01) | DRG 689 ==
LOC: JER 11:22 → JERBED 12:35 → OBSVTOIN 14:33 → J6S 17:53
PROVIDERS: ATTEND Internal Medicine
DX: N39.0 Urinary tract infection, site not specified (principal); E43 Unspecified severe protein-calorie malnutrition; I48.20 Chronic atrial fibrillation, unspecified; N18.9 Chronic kidney disease, unspecified; G43.909 Migraine, unspecified, not intractable, without status migrainosus; K22.4 Dyskinesia of esophagus; Z93.2 Ileostomy status; B95.1 Streptococcus, group B, as the cause of diseases classified elsewhere; D69.6 Thrombocytopenia, unspecified; T36.8X5A Adverse effect of other systemic antibiotics, initial encounter; Y92.89 Other specified places as the place of occurrence of the external cause; Z68.24 Body mass index [BMI] 24.0-24.9, adult
CPT/HCPCS: 0241U-QW; 36415; 71046-TC-FY; 74176-TC; 76775-TC; 76856-TC; 80048; 80053; 81003; 83735; 84100; 85025; 85027; 85610; 87077; 87086; 93005; 93010; 99285-25; G0378